=== PATIENT | female | born 1960 | race Caucasian/White ===

== ENCOUNTER 2022-12-29 12:53 | Outpatient (OUT) | payer OTHER, SELFPAY ==
--- NOTE | 2022-12-29 13:33 | CA_ITS ---
Patient: NIA GREEN Exam Date: 12/29/2022 : 1960 Gender:F Ordering : OXANA RUIZ [facility] Admission #: [id number] Family : DR Venus Daniels M.D. Order #: [id number] CLICK HERE TO VIEW EXAM ECHOCARDIOGRAM REPORT PROCEDURE: CA ECHO DOPPLER COMPLETE INDICATIONS: Diastolic dysfunction, palpitations, SVT, diabetes COMPARISON: None. DESCRIPTION: COMPLETE ECHOCARDIOGRAM Real-time transthoracic echocardiography with 2D, M-mode, spectral and color flow Doppler performed. QUALITY: Technical quality was good. LEFT VENTRICLE: Normal chamber size. Normal left ventricular wall thickness. Normal systolic function. LV EF: Normal left ventricular ejection fraction, (>55%). DIASTOLIC: Normal diastolic function. ATRIAL SEPTUM: LEFT ATRIUM: Normal chamber size. RIGHT ATRIUM: Normal chamber size. RIGHT VENTRICLE: Normal chamber size. Normal right ventricular systolic function. TRICUSPID VALVE: Normal mobility and thickness. No stenosis with trivial regurgitation. No evidence of pulmonary hypertension. RVSP 34 mmHg MITRAL VALVE: Normal mobility and thickness. No evidence of mitral valve stenosis. Mild mitral annular calcification. Trivial mitral regurgitation. AORTIC VALVE: Normal trileaflet appearance. No visible sclerosis. Normal leaflet mobility. No evidence of aortic valve stenosis. No aortic regurgitation. AORTIC ROOT: Normal diameter and appearance. PULMONIC VALVE: Normal thickness and mobility. No stenosis. No regurgitation. PERICARDIUM: No evidence of pericardial effusion. IVC: Not well visualized. PLEURA: CONCLUSION: 1. Normal ventricular function. LVEF is 55-60%. 2. No significant valvular dysfunction. 3. Normal right sided pressures. Adult Echocardiography Procedure Report Left Ventricle LVEDD (3.7 - 5.6 cm): 5.11 cm LVESD (2.2 - 4.0 cm): 3.61 cm LVIVS thickness (0.6 - 1.2 cm): 0.86 cm LVPW thickness (0.5 - 1.0 cm): 0.65 cm e': 0.09 m/s E - e': 6.66 LVOT Max Gradient: 1.69 mm[Hg] LVOT Area (cm2): 0.65 m/s Peak Velocity (LVOT): 0.65 m/s LVOT Diameter 2.26 cm Left Atrium LA Volume Index (2D A2C): 23.63 ml/m2 Left Atrium Systolic Dimension: 3.80 cm Mitral Valve MV E to A Ratio: 0.77 Mitral Valve A-Wave Peak Velocity: 0.75 m/s Mitral Valve E-Wave Peak Velocity: 0.58 m/s Right Ventricle Aorta AO Root Diam: 3.25 cm Ascending Ao Diam: 2.98 cm Aortic Valve AoV Area (Peak Gregorio): 2.61 cm2, 2.61 cm2 Peak Velocity(Antegrade Flow): 1.00 m/s Peak Gradient(Antegrade Flow): 4.01 mm[Hg] Tricuspid Valve Peak Velocity (Regurgitant Flow): 2.77 m/s Pulmonic Valve Mean Gradient: 2.16 mm[Hg], 2.19 mm[Hg], 2.31 mm[Hg] Mean Velocity: 0.71 m/s, 0.71 m/s, 0.73 m/s Peak Velocity: 0.98 m/s, 0.85 m/s Peak Gradient: 3.57 mm[Hg], 3.87 mm[Hg], 4.19 mm[Hg], 2.86 mm[Hg] Right Atrium Right Atrium Systolic Pressure: 24.95 ml, 24.95 ml Dictated by: Thiago Diaz M.D. on 12/29/2022 at 17:12 Approved by: Thiago Diaz M.D. on 12/29/2022 at 17:17
== END 2022-12-29 12:54 | disposition home or self-care (01) ==
LOC: CARD 12:53
PROVIDERS: PCP Family Medicine; Visit Provider Nurse Practitioner Family
DX: I47.1 Supraventricular tachycardia (principal)
CPT/HCPCS: 93306

== ENCOUNTER 2023-07-30 09:17 | Outpatient (OUT) | payer OTHER, SELFPAY ==
[2023-07-30 09:54] LABS: Basophils Absolute Auto 0.1 10^3/uL (0.0-0.1); Basophils Percent Auto 0.6 % (0.2-2.0); Eosinophils Absolute Auto 0.3 10^3/uL (0.0-0.7); Hematocrit 41.4 % (36.0-48.0); Hemoglobin 12.9 g/dL (12.0-16.0); Immature Granulocytes Abs Auto 0.03 10^3/uL (0.00-0.03); Immature Granulocytes Pct Auto 0.3 % (0.0-0.5); Lymphocytes Absolute Auto 3.2 10^3/uL (1.2-3.8); Lymphocytes Percent Auto 29.6 % (20.5-60.0); Mean Corpuscular HGB Conc 31.2 g/dL (29.9-35.2); Mean Corpuscular Hemoglobin 27.4 pg (26.7-34.0); Mean Corpuscular Volume 87.9 fL (81.0-99.0); Monocytes Absolute Auto 0.6 10^3/uL (0.3-0.8); Monocytes Percent Auto 5.9 % (1.7-12.0); Neutrophils Absolute Auto 6.5 10^3/uL (1.4-6.5); Neutrophils Percent Auto 60.6 % (43.0-75.0); Platelet Count 318 10^3/uL (150-450); Red Blood Count 4.71 10^6/uL (4.20-5.40); Red Cell Distribution Width 12.6 % (11.0-15.0); White Blood Count 10.7 10^3/uL (4.0-11.0)
[2023-07-30 09:56] LABS: Microalbumin Urine Random <1.3 mg/dL (<=30.0)
[2023-07-30 10:32] LABS: Alanine Aminotransferase 29 U/L (14-59); Albumin Globulin Ratio 0.8; Albumin Level 3.2 g/dL (3.4-5.0); Alkaline Phosphatase 84 U/L (46-116); Anion Gap 12.6; Aspartate Amino Transferase 15 U/L (15-37); BUN Creatinine Ratio 13.8; Bilirubin Total 0.4 mg/dL (0.2-1.0); Calcium 8.4 mg/dL (8.5-10.1); Carbon Dioxide 27.7 mmol/L (21.0-32.0); Chloride 104 mmol/L (98-107); Chol HDL Ratio 3.6; Cholesterol 218 mg/dL (<=200); Estimated GFR (African America >60 (>=60); Estimated GFR (Non-African Ame >60 (>=60); Free T3 2.03 pg/mL (2.18-3.98); Globulin 4.1 g/dL; Glucose 143 mg/dL (74-106); HDL Cholesterol 61 mg/dL (40-60); Potassium 4.3 mmol/L (3.5-5.1); Sodium 140 mmol/L (136-145); Thyroid Stimulating Hormone 0.248 uIU/mL (0.358-3.740); Total Protein 7.3 g/dL (6.4-8.2); Triglycerides 128 mg/dL (<=150); VLDL CHOLESTEROL 25.6 mg/dL
[2023-07-30 11:02] LABS: Estimated Average Glucose 151 mg/dL; Glycohemoglobin A1C 6.9 % (4.5-6.2)
[2023-07-30 11:19] LABS: Free T4 1.05 ng/dL (0.76-1.46)
[2023-08-01 17:10] LABS: Thyroglobulin Antibody <1.0 IU/mL (0.0-0.9); Thyroid Peroxidase (TPO) Ab <9 IU/mL (0-34)
== END 2023-07-30 09:18 | disposition home or self-care (01) ==
LOC: LAB 09:17
PROVIDERS: PCP Family Medicine; Visit Provider Family Medicine
DX: E03.9 Hypothyroidism, unspecified (principal); E11.65 Type 2 diabetes mellitus with hyperglycemia; R10.9 Unspecified abdominal pain
CPT/HCPCS: 36415; 80053; 80061; 82043; 83036; 84439; 84443; 84481; 85025; 86376; 86800

== ENCOUNTER 2024-03-02 11:21 | Outpatient (OUT) | payer OTHER, SELFPAY ==
--- OUTSIDE RECORDS SUMMARY | 2024-03-02 11:28 | XMS_ITS | CCD ---
Author Organization [facility] Care Team Providers Care Acute Specialist Name Role Phone VENUS CHEN Primary Care Physician [phone] VENUS CHEN Primary Care Unavailable MISC, DR CARMONA Attending Unavailable MISC, DR CARMONA Consulting Unavailable MISC, DR CARMONA Admitting Unavailable [facility] Attending Unavailable OXANA RUIZ Attending Unavailable VENUS CHEN Unavailable REFERRAL, SELF Referring Unavailable REFERRAL, SELF Attending Unavailable REFERRAL, SELF Admitting Unavailable VENUS CHEN Consulting Unavailable Brittany TALLEY Attending Unavailable Venus Chen Attending Unavailable Venus Chen Primary Care Unavailable Venus Chen Admitting Unavailable MD Venus Chen Primary Care Provider [phone] MD Venus Chen Attending Provider RUDDY SIMMONS Attending Unavailable VENUS CHEN Referring Unavailable VENUS CHEN Primary Care Unavailable VENUS CHEN Referring Unavailable VENUS CHEN Primary Care Unavailable JO-ANN CUELLAR Admitting Unavailable JO-ANN CUELLAR Attending Unavailable JO-ANN CUELLAR Referring Unavailable VENUS CHEN Primary Care Unavailable JO-ANN CUELLAR Attending Unavailable JO-ANN CUELLAR Referring Unavailable VENUS CHEN Primary Care Unavailable LIBBY TO Attending Unavailable VENUS CHEN Primary Care Unavailable Allergies Allergy Classification Reported Allergen(s) Allergy Type Date of Onset Reaction(s) Facility (2 sources) Amoxicillin; Translations: [amoxicillin] Drug Allergy Unknown cause [facility] (14 sources) Ciprofloxacin; Translations: [ciprofloxacin] Drug Allergy 04-11-20 Unknown cause, Unknown, Hives [facility] (2 sources) Gluten; Translations: [Glutens] Drug allergy Unknown cause [facility] (2 sources) Latex; Translations: [Latex] Drug allergy Unknown cause [facility] (8 sources) Penicillin; Translations: [penicillin] Drug Allergy Unknown cause, Unknown [facility] (2 sources) Milk Products; Translations: [Milk Products] Drug allergy Unknown cause [facility] (6 sources) Acetaminophen / Propoxyphene Drug Allergy Unknown [employer] [facility] [employer] Other (9 sources) Aspirin; Translations: [ASPIRIN] Drug Allergy 01-20-20 21 Unknown, [facility] (6 sources) Cephalexin Drug Allergy Unknown [facility] [employer] Other (9 sources) Codeine; Translations: [CODEINE] Drug Allergy 01-20-20 Unknown, [facility] (7 sources) levoFLOXacin; Translations: [Levaquin] Drug Allergy 06-06-19 14 Unknown [facility] (6 sources) NITROFURANTOIN, MACROCRYSTALS / Nitrofurantoin, Monohydrate Drug Allergy Unknown [facility] Other (6 sources) Sulfamethoxazole / Trimethoprim Drug Allergy Unknown [facility] Other (6 sources) Substance with sulfonamide structure and antibacterial mechanism of action (substance) Drug allergy Unknown [facility] [employer] Other (1 source) Acetaminophen / HYDROcodone Drug Allergy 06-13-19 14 [facility] (1 source) Acetaminophen / oxyCODONE Drug Allergy 06-13-19 14 [facility] (4 sources) Morphine; Translations: [MORPHINE] Drug Allergy 06-13-19 14 [facility] (5 sources) Penicillins; Translations: [PENICILLINS] Drug allergy (disorder) 04-18-20 07 Hives [facility] (1 source) thyroid (DETENTION) Drug Allergy 06-13-19 14 [facility] (1 source) Darvocet-N 100 Drug allergy (disorder) 06-13-19 14 [facility] (3 sources) natural latex rubber; Translations: [LATEX, NATURAL RUBBER] Propensity to adverse reactions to drug (disorder) 08-23-19 18 [facility] (1 source) Sulfamethoxazole / Trimethoprim; Translations: [SULFAMETHOXAZOLE-T RIMETHOPRIM] Drug Allergy 01-20-20 21 [facility] (3 sources) ADHESIVE TAPE-SILICONES; Translations: [ADHESIVE TAPE-SILICONES] Propensity to adverse reactions to drug (disorder) 08-23-19 18 [facility] (1 source) PROPOXYPHENE N-ACETAMINOPHEN; Translations: [PROPOXYPHENE N-ACETAMINOPHEN] Propensity to adverse reactions to drug (disorder) 09-07-19 23 [facility] (3 sources) aspirin contraindicated Propensity to adverse reactions 04-26-20 14 Comment:advers e rxn/side effects [facility] Other (3 sources) Darvocet A500 *ANALGESICS - OPIOID* Propensity to adverse reactions 04-11-20 13 Unknown [facility] Other (3 sources) Allergies Reconciled Propensity to adverse reactions Unknown [facility] Other (3 sources) Substance with penicillin structure and antibacterial mechanism of action (substance) Drug allergy 04-11-20 13 Unknown [facility] Other (3 sources) patient allergy list reviewed by nurse or physicia Propensity to adverse reactions 04-11-20 13 Comment:Done [facility] Other (3 sources) Keflex *CEPHALOSPORINS* Propensity to adverse reactions 04-11-20 13 Unknown [facility] Other (1 source) Acetaminophen Drug Allergy 07-18-19 24 [facility] (1 source) Cephalexin Drug Allergy 07-18-19 24 [facility] (1 source) Cephalosporins (Antibiotic) Allergy to substance 07-18-19 24 [facility] (1 source) levoFLOXacin Drug Allergy 07-18-19 24 [facility] (1 source) Nitrofurantoin Drug Allergy 07-18-19 24 [facility] (1 source) Propoxyphene Drug Allergy 07-18-19 24 [facility] (1 source) Sulfamethoxazole Drug Allergy 07-18-19 [facility] (3 sources) Sulfonamides (Antibiotic); Translations: [SULFA (SULFONAMIDE ANTIBIOTICS)] Allergy to substance 01-20-20 [facility] (1 source) Trimethoprim Drug Allergy 07-18-19 [facility] (1 source) Darfabriciocet A500 *ANALGESICS - OP Allergy to substance 07-18-19 [facility] (2 sources) NITROFURANTOIN MONOHYD/M-CRYST; Translations: [NITROFURANTOIN MONOHYD/M-CRYST] Propensity to adverse reactions to drug (disorder) 01-20-20 [facility] Medications Current Medications Medication Drug Class(es) Dates Sig (Normalized) Sig (Original) 3 ml insulin glargine 100 unt/ml pen injector (5 sources) Insulin Analog Start: 07-18-2023 Insulin Glargine (Basaglar Kwikpen U-100 Insulin) 100 unit/mL (3 mL) insulin pen Active UNIT SUBCUT As Directed July 18, 2023 1:00am FreeTextSig: as directed Subcutaneous; Note: Source Status: Taking; Provider: Tiburcio Nielson ( ) Basaglar KwikPen 100 UNIT/ML as directed Subcutaneous Active levothyroxine sodium 0.125 mg oral capsule (8 sources) l-Thyroxine Start: 07-18-2023 take 1 capsule by mouth once daily Levothyroxine (Tirosint) 125 mcg capsule Active 125 MCG PO Daily July 18, 2023 1:00am Start: 11-11-2017 take 1 capsule by [facility] once daily Tirosint 125 mcg (0.125 mg) oral capsule 125 microgram = 1 cap(s), Oral, Daily, On an empty stomach, Refills(s) 0, Thyroid Start Date: 11/11/17 Status: Ordered liothyronine sodium 0.005 mg oral tablet (8 sources) l-Triiodothyronine Start: 07-18-2023 take 1 tablet by mouth once daily Liothyronine (Cytomel) 5 mcg tablet Active 5 MCG PO Daily July 18, 2023 1:00am Start: 11-11-2017 take 2.5 ug by mouth once gene y Cytomel 2.5 mcg, Oral, Daily, Refills(s) 0, Thyroid Start Date: 11/11/17 Status: [facility]four [facility] Cytomel 5 MCG 1 tablet on an empty stomach Orally Once a day Active metFORMIN hydrochloride 1000 mg oral tablet (4 sources) Biguanide take 1 tablet by mouth every twelve hours metFORMIN HCl 1000 MG 1 tablet with a meal Orally twice a day Active Semaglutide (1 source) Start: inject 1 mg by subcutaneous injection every week Semaglutide (Ozempic) 1 mg/dose (4 mg/3 mL) pen injector Active 1 MG SUBCUT every week July 18, 2023 1:00am 24 hr venlafaxine 150 mg extended release oral capsule (8 sources) Serotonin and Norepinephrine Reuptake Inhibitor Start: take 1 capsule by mouth once daily Venlafaxine Active 150 MG PO Daily July 18, 2023 1:00am FreeTextSig: TAKE 1 CAPSULE BY MOUTH EVERY DAY; Note: Source Status: Taking; Refills: 1; Qty: 90 Capsule; Provider: April Wagner Start: 11-11-2017 take 150 mg by mouth once gene y venlafaxine 150 mg, Oral, Daily, Refills(s) 0, Depression Start Date: 11/11/17 Status: Ordered take 1 capsule by mo [facility] once daily Venlafaxine HCl ER 150 MG TAKE 1 CAPSULE BY MOUTH EVERY DAY for 90 Active vitamin B12 (1 source) Vitamin B12 Start: 11-11-2017 Vitamin B12 Or al, Daily, Refills(s) 0, Prophylaxis Start Date: 11/11/17 Status: Ordered Vitamin D3 (1 source) Start: 11-11-2017 Vitamin D3 5,0 00 [employer], Oral, Once a day (at bedtime), Refills(s) 0, Prophylaxis Start Date: 11/11/17 Status: Ordered zolpidem tartrate 5 mg oral tablet (8 sources) gamma-Aminobutyr ic Acid-ergic Agonist Start: 07-18-2023 take 1 tablet by mouth once daily at bedtime as needed Zolpidem Active 5 MG PO Daily at bedtime July 18, 2023 1:00am FreeTextSig: TAKE 1 TABLET BY MOUTH EVERY DAY AT BEDTIME NEEDED; Note: Source Status: Refill; Refills: 0; Qty: 90 Tablet; Provider: April Wagner Start: 04-11-2023 take 1 tablet by becky th once daily at bedtime as needed Zolpidem Tartrate 5 MG TAKE 1 TABLET BY MOUTH EVERY DAY AT BEDTIME NEEDED for 90 Mar, Active Start: 01-10-2023 take 1 tablet by becky th once daily at bedtime as needed Zolpidem Tartrate 5 MG TAKE 1 TABLET BY MOUTH EVERY DAY AT BEDTIME NEEDED for 90 Dec, Active Start: 07-15-2022 take 1 tablet by becky th once daily at bedtime as needed Zolpidem Tartrate 5 MG TAKE 1 TABLET BY MOUTH EVERY DAY AT BEDTIME NEEDED for 90 Jun, Active Start: 11-11-2017 take 5 mg by mouth o nce daily at bedtime as needed for sleep Ambien 5 mg, Oral, Once a day (at bedtime), PRN as needed for sleep, Refills(s) 0, Sleep Start Date: 11/11/17 Status: Ordered Problems Active Problems Problem Classification Problem Date Documented Da te Episodic/Chronic Abdominal pain (16 sources) Left lower quadrant pain; Translations: [Left lower quadrant pain] Onset: 3 07-18-2023 Episodic Anxiety disorders (9 sources) Mixed anxiety and depressive disorder; Translations: [Anxiety disorder, unspecified] Onset: 3 Chronic Cardiac dysrhythmias (4 sources) Supraventricular tachycardia; Translations: [Ventricular premature depolarization] Onset: 3 Chronic Cardiac dysrhythmias (12 sources) Intermittent palpitations; Translations: [Palpitations] Onset: 3 Episodic Diabetes mellitus with complications (13 sources) Hyperglycemia due to type 2 diabetes mellitus; Translations: [Type 2 diabetes mellitus with hyperglycemia] Onset: 4 Chronic Diabetes mellitus without complication (4 sources) Type 2 diabetes mellitus without complications; Translations: [Type 2 diabetes mellitus without complication] Onset: 8 Chronic Disorders of lipid metabolism (3 sources) Hyperlipidemia, unspecified; Translations: [Mixed hyperlipidemia] Onset: 2 Chronic Essential hypertension (10 sources) Essential hypertension; Translations: [Essential (primary) hypertension] Chronic Immunizations and screening for infectious disease (3 sources) Vaccination given; Translations: [Encounter for immunization] Episodic Mycoses (9 sources) Candidiasis; Translations: [Candidiasis, unspecified] Episodic Nonmalignant breast conditions (9 sources) Inflammatory disorder of breast; Translations: [Abscess of the breast and nipple] Episodic Other and ill-defined heart disease (2 sources) Other ill-defined heart diseases; Translations: [Other ill-defined heart diseases] Onset: 3 Chronic Other and unspecified benign neoplasm (2 sources) Personal history of colonic polyps; Translations: [Personal history of colonic polyps] Onset: 4 Episodic Other and unspecified benign neoplasm (1 source) Polyp of colon; Translations: [Polyp of colon] Onset: 4 Episodic Other circulatory disease (9 sources) Elevated blood-pressure reading without diagnosis of hypertension; Translations: [Elevated blood-pressure reading, without diagnosis of hypertension] Episodic Other connective tissue disease (6 sources) Fibromyalgia; Translations: [Fibromyalgia] Episodic Other connective tissue disease (1 source) Pain in left foot Episodic Other gastrointestinal disorders (6 sources) Irritable bowel syndrome; Translations: [Irritable bowel syndrome without diarrhea] Onset: 8 Chronic Other gastrointestinal disorders (6 sources) Small bowel bacterial overgrowth syndrome; Translations: [Other specified diseases of intestine] Episodic Other gastrointestinal disorders (1 source) Other specified diseases of intestine Episodic Other gastrointestinal disorders (3 sources) Disorder of intestine; Translations: [Other specified diseases of intestine] Episodic Other lower respiratory disease (2 sources) Orthopnea; Translations: [Orthopnea] Onset: 3 Episodic Other non-traumatic joint disorders (9 sources) Arthralgia of the lower leg; Translations: [Pain in right knee] Episodic Other nutritional; endocrine; and metabolic disorders (6 sources) Body mass index 40+ - severely obese; Translations: [Body Mass Index 45.0-49.9, adult] Onset: 7 Chronic Other screening for suspected conditions (not mental disorders or infectious disease) (7 sources) Encounter for screening, unspecified; Translations: [Screening] Onset: 4 Episodic Other skin disorders (9 sources) Disorder of skin and/or subcutaneous tissue; Translations: [Disorder of the skin and subcutaneous tissue, unspecified] Episodic Peripheral and visceral atherosclerosis (9 sources) Intermittent claudication; Translations: [Peripheral vascular disease, unspecified] Chronic Residual codes; unclassified (9 sources) Insomnia; Translations: [Insomnia, unspecified] Onset: 3 Episodic Skin and subcutaneous tissue infections (20 sources) Cellulitis of right foot; Translations: [Cellulitis of right lower limb] Onset: 4 Episodic Thyroid disorders (13 sources) Hypothyroidism; Translations: [Hypothyroidism, unspecified] Onset: 3 Chronic Unclassified (2 sources) Esophagitis, unspecified without bleeding; Translations: [Esophagitis, unspecified without bleeding] Onset: 4 Unclassified (1 source) history of colon polyps Onset: 4 Past or Other Problems Problem Classification Problem Date Documented Da te Episodic/Chronic Acute bronchitis (3 sources) Acute bronchitis; Translations: [Acute bronchitis, unspecified] Onset: 05-19-2017 Episodic Allergic reactions (3 sources) Contact dermatitis; Translations: [Unspecified contact dermatitis, unspecified cause] Onset: 04-04-2018 Episodic Cancer of thyroid (4 sources) Personal history of malignant neoplasm of thyroid; Translations: [PERSONAL HX MALIG NEOPLASM THYROID] Onset: 12-19-2021 Episodic Esophageal disorders (1 source) Esophagitis; Translations: [Esophagitis, unspecified without bleeding] Onset: 04-26-2014 Episodic Genitourinary symptoms and ill-defined conditions (3 sources) Dysuria; Translations: [Dysuria] Onset: 11-27-2013 Episodic Influenza (3 sources) Upper respiratory tract infection due to Influenza; Translations: [Influenza due to unidentified influenza virus with other respiratory manifestations] Onset: 05-19-2017 Episodic Malaise and fatigue (3 sources) Malaise and fatigue; Translations: [Other malaise and fatigue] Onset: 09-28-2013 Episodic Other and unspecified benign neoplasm (3 sources) Benign neoplasm of stomach; Translations: [Polyp of stomach and duodenum] Onset: 06-06-2018 Episodic Other bone disease and musculoskeletal deformities (3 sources) Tietze's disease; Translations: [Chondrocostal junction syndrome [Tietze]] Onset: 07-30-2013 Episodic Other ear and sense organ disorders (3 sources) Otalgia; Translations: [Otalgia, unspecified ear] Onset: 09-04-2013 Episodic Other gastrointestinal disorders (3 sources) Diarrhea; Translations: [Diarrhea] Onset: 09-27-2018 Episodic Other skin disorders (3 sources) Mass of thoracic structure; Translations: [Swelling, mass, or lump in chest] Onset: 11-27-2018 Episodic Other skin disorders (3 sources) Actinic keratosis; Translations: [Actinic keratosis] Onset: 04-11-2013 Episodic Residual codes; unclassified (3 sources) Edema, unspecified; Translations: [Edema] Onset: 01-04-2017 Episodic Results Test Name Value Interpretation Reference Range Facility CT abdomen pelvis w conon CT abdomen pelvis w con [facility] [place] [address] [place] [address] CT Scan Report Signed Patient: Nia Calhoun MR#: [id number] : 1960 Acct:[id number] Age/Sex: 63 / F ADM Date: 08/03/23 Loc: CT Room: Type: [facility] Attending Dr: Venus Chen MD Copies to: Venus Chen MD Ordering Provider: Venus Chen MD Date of Service: 08/03/23 CT/CT abdomen pelvis w con: E11.65 - Type [address] ABDOMEN AND PELVIS WITH INTRAVENOUS CONTRAST: CLINICAL HISTORY: Abdominal pain and constipation low back pain. COMPARISON: None TECHNIQUE: Spiral images were obtained through the abdomen and pelvis following the administration of intravenous contrast. This CT exam was performed using one or more following dose reduction techniques: Automated exposure control, adjustment of the mA and/or kV according to patient size, or use of iterative reconstruction technique. FINDINGS: Lung Bases: [No acute findings.] Organs:Hepatic steatosis. Gallbladder has been removed. Portal vein pancreas spleen and adrenal glands appear unremarkable. No enhancing renal mass or hydronephrosis. Presumed parapelvic cyst left kidney. Abdominal aorta appears normal in caliber.[ GI: Stomach is grossly unremarkable. Small bowel appears nondilated. No acute colonic abnormality.[ Pelvis:[Urinary bladder is grossly unremarkable.] Uterus has been removed. No adnexal mass. Peritoneum/Retroperitoneum :No free air, free fluid or lymphadenopathy. Abd wall/Bones:Abdominal wall demonstrates no acute findings. Osseous structures demonstrate degenerative change.[ CT/CT abdomen pelvis w con IMPRESSION: No acute findings. Impression dictated by: Luis A Feliciano Jr., DBrandon08/03/2023 4:01 PM Dictation Location: [place] [address] Transcribed By: CHINO 08/03/23 1601 Dictated By: Luis A Feliciano Jr, DO 08/03/23 1558 Signed By: 08/03/23 1601 Normal [facility] Basophils Auto (Bld) [#/Vol] on 07-30-2023 Basophils (Bld) [#/Vol] 0.1 10 3/uL 0.0-0.1 [facility] Basophils/100 WBC Auto (Bld) on 07-30-2023 Basophils/100 WBC (Bld) 0.6 % 0.2-2.0 [facility] Cholesterol in LDL Calc [Mas s/Vol]on 07-30-2023 Cholesterol in LDL [Mass/Vol] 132.0 mg/dL [facility] Comment on above: <100 mg/dl [id number] 0-129 mg/dl NEAR OR ABOVE [id number] mg/dl BORDERLINE [id number] mg/dl HIGH>190 mg/dl VERY HIGH Cholesterol in VLDL Calc [Ma ss/Vol]on 07-30-2023 Cholesterol in VLDL [Mass/Vol] 25.6 mg/dL [facility] Eosinophils/100 WBC Auto (Bl d)on 07-30-2023 Eosinophils/100 WBC (Bld) 3.0 % 0.9-7.0 [facility] Erythrocyte distribution wid th Auto (RBC) [Ratio]on 07-30-2023 Erythrocyte distribution width (RBC) [Ratio] 12.6 % 11.0-15.0 [facility] Estimated glomerular filtrat ion rate (GFR) non- Americanon 07-30-2023 GFR/1.73 sq M.predicted among non-blacks MDRD (S/P/Bld) [Vol rate/Area] mL/min/{1.73_m2} >=60 [facility] Globulin Calc (S) [Mass/Vol] on 07-30-2023 Globulin (S) [Mass/Vol] 4.1 g/dL [facility] Glucose mean value [Mass/vol ume] in Blood Estimated from glycated hemoglobinon 07-30-2023 Average glucose Estimated from glycated hemoglobin (Bld) [Mass/Vol] 151 mg/dL [facility] Hematocrit Auto (Bld) [Volum e fraction]on 07-30-2023 Hematocrit (Bld) [Volume fraction] 41.4 % 36.0-48.0 [facility] Hemoglobin [Mass/volume] in Bloodon 07-30-2023 Hemoglobin (Bld) [Mass/Vol] 12.9 g/dL 12.0-16.0 [facility] Laboratory - Chemistry and C hemistry - challengeon 07-30-2023 Albumin [Mass/Vol] 3.2 g/dL 3.4-5.0 [facility] ALP [Catalytic activity/Vol] 84 U/L 46-116 [facility] ALT [Catalytic activity/Vol] 29 U/L 14-59 [facility] AST [Catalytic activity/Vol] 15 U/L 15-37 [facility] Bilirubin [Mass/Vol] 0.4 mg/dL 0.2-1.0 [facility] Calcium [Mass/Vol] 8.4 mg/dL 8.5-10.1 [facility] Chloride [Moles/Vol] 104 mmol/L 98-107 [facility] Cholesterol [Mass/Vol] 218 mg/dL <=200 [facility] Cholesterol in HDL [Mass/Vol] 61 mg/dL 40-60 [facility] Comment on above: > or =60 mg/dl - LOW CARDIOVASCULAR RISK<40 mg/dl - HIGH CARDIOVASCULAR RISK CO2 [Moles/Vol] 27.7 mmol/L 21.0-32.0 [facility] Creatinine [Mass/Vol] 0.87 mg/dL 0.55-1.02 [facility] Free T4 [Mass/Vol] 1.05 ng/dL 0.76-1.46 [facility] GFR/1.73 sq M.predicted MDRD (S/P/Bld) [Vol rate/Area] mL/min/{1.73_m2} >=60 [facility] Glucose [Mass/Vol] 143 mg/dL 74-106 [facility] Potassium [Moles/Vol] 4.3 mmol/L 3.5-5.1 [facility] Protein [Mass/Vol] 7.3 g/dL 6.4-8.2 [facility] Sodium [Moles/Vol] 140 mmol/L 136-145 [facility] Triglyceride [Mass/Vol] 128 mg/dL <=150 [facility] TSH Qn 0.248 m[IU]/L 0.358-3.740 [facility] Urea nitrogen [Mass/Vol] 12.0 mg/dL 7.0-18.0 [facility] Urea nitrogen/Creatinine [Mass ratio] 13.8 mg/mg [facility] Laboratory - Hematology and Cell countson 07-30-2023 HbA1c (Bld) [Mass fraction] 6.9 % 4.5-6.2 [facility] Comment on above: ADA RECOMMENDED LIMI T 4.0 - 6.0ADA THERAPEUTIC TARGET < 7.0ACTION SUGGESTED> 7.0 Immature granulocytes/100 WBC (Bld) 0.3 % 0.0-0.5 [facility] Leukocytes [#/volume] correc cedrick for nucleated erythrocytes in Blood by Automated counon 07-30-2023 WBC corrected for nucl RBC Auto (Bld) [#/Vol] 10.7 10 3/uL 4.0-11.0 [facility] Lymphocytes Auto (Bld) [#/Vo l]on 07-30-2023 Lymphocytes (Bld) [#/Vol] 3.2 10 3/uL 1.2-3.8 [facility] Lymphocytes/100 WBC Auto (Bl d)on 07-30-2023 Lymphocytes/100 WBC (Bld) 29.6 % 20.5-60.0 [facility] MCH Auto (RBC) [Entitic mass ]on 07-30-2023 MCH (RBC) [Entitic mass] 27.4 pg 26.7-34.0 [facility] MCHC Auto (RBC) [Mass/Vol]on 07-30-2023 MCHC (RBC) [Mass/Vol] 31.2 g/dL 29.9-35.2 [facility] MCV Auto (RBC) [Entitic vol] on 07-30-2023 MCV (RBC) [Entitic vol] 87.9 fL 81.0-99.0 [facility] Microalbumin [Mass/volume] i n Urineon 07-30-2023 Albumin DL <= 20 mg/L (U) [Mass/Vol] mg/dL <=30.0 [facility] Monocytes Auto (Bld) [#/Vol] on 07-30-2023 Monocytes (Bld) [#/Vol] 0.6 10 3/uL 0.3-0.8 [facility] Monocytes/100 WBC Auto (Bld) on 07-30-2023 Monocytes/100 WBC (Bld) 5.9 % 1.7-12.0 [facility] Neutrophils Auto (Bld) [#/Vo l]on 07-30-2023 Neutrophils (Bld) [#/Vol] 6.5 10 3/uL 1.4-6.5 [facility] Neutrophils/100 WBC Auto (Bl d)on 07-30-2023 Neutrophils/100 WBC (Bld) 60.6 % 43.0-75.0 [facility] No Panel Informationon 07-29 Eosinophils # (Auto) 0.3 10 3/uL 0.0-0.7 [facility] Free Triiodothyronine 2.03 pg/mL 2.18-3.98 [facility] Immature Granulocyte # (Auto) 0.03 10 3/uL 0.00-0.03 [facility] Platelet mean volume Auto (B ld) [Entitic vol]on 07-30-2023 Platelet mean volume (Bld) [Entitic vol] 9.0 fL 9.5-13.5 [facility] Platelets Auto (Bld) [#/Vol] on 07-30-2023 Platelets (Bld) [#/Vol] 318 10 3/uL 150-450 [facility] RBC Auto (Bld) [#/Vol]on RBC (Bld) [#/Vol] 4.71 10 6/uL 4.20-5.40 [facility] Serum or plasma albumin/glob ulin mass ratioon 07-30-2023 Albumin/Globulin [Mass ratio] 0.8 {ratio} [facility] Serum or plasma anion gap de terminationon 07-30-2023 Anion gap [Moles/Vol] 12.6 mmol/L [facility] Serum or plasma thyroperoxid ase antibody assay (units/volume)on 07-30-2023 TPO Ab Qn [IU]/mL 0-34 [facility] Serum or plasma total choles terol/high density lipoprotein (HDL) cholesterol mass [place] 07-30-2023 Cholesterol.total/C holesterol in HDL [Mass ratio] 3.6 {ratio} [facility] Comment on above: 3.3 - 4.4 LOW RISK4. 4 - 7.1 AVERAGE RISK7.1 - 11.0 MODERATE RISK>11.0 HIGH RISK Thyroglobulin [Mass/volume] in Serum or Plasmaon 07-30-2023 Thyroglobulin [Mass/Vol] <1.0 [IU]/mL 0.0-0.9 [facility] Comment on above: Thyroglobulin Antibo dy measured by [employer] MarketMethodologyIt should be noted that the presence of thyroglobulinantibodies may not be pathogenic nor diagnostic, especiallyat very low levels. The assay whiskey regauger has found thatfour percent of individuals without evidence of thyroiddisease or autoimmunity will have positive TgAb levels upto 4 IU/mL.Performed at: [address] [id number] Director: Chris Galicia PhD, Phone: [phone] [place] Mamm Screen w/CAD if perf and 3D Bilon 04-15-2023 MA Mamm Screen w/CAD if perf and 3D Blake Exam Date/Time: 04/13/2023 16:30 EST Reason for Exam: Z12.31 Report IMPRESSION: BIRADS 1 NEGATIVE, NORMAL INTERVAL FOLLOW-UP.12 MONTH RECALL. CLINICAL HISTORY: Z12.31. COMPARISON: 03/10/2022. COMMENT: Routine views and tomosynthesis views of both breasts were obtained. The breasts are almost entirely fatty. No dominant breast mass nor neoplastic calcifications are noted. There has been no significant change from the previous exam. The examination was reviewed with Computer Aided Detection. Breast Density: No Mammography is very important to your health. The current [employer] and National Comprehensive Cancer Network guidelines recommends annual mammography beginning at age 40. This facility utilizes a reminder system to ensure all patients receive reminder notifications at the appropriate time based on the recommendations of this exam. Board Certified Radiologists. Accredited by the ACR and FDA. Ordering Provider: REFERRAL, SELF FINAL REPORT Dictated: 04/15/2023 3:27 pm Reagan Yadav M.D. Signed (Electronic Signature): 04/15/2023 3:27 pm Signed by: Reagan Yadav M.D. Transcribed by: NEIL Technologist: TAIWO Assessment: BI-RADS Category 1-Negative Recommendation: Normal interval follow-up Normal [facility] Consent for Treatmenton 03-24 Consent for Treatment [id number] Normal [facility] Office Visiton 11-22-2022 Follow-up visit [id number] Nia Calhoun 1960 F Date Provider Department Center 11/22/2022 [id number], KATEYAB CARD [facility] Family History Problem Relation Age of Onset Coronary artery disease Father Arrhythmia Father Heart attack Father Coronary artery disease Sister Arrhythmia Brother Family Status - Relation Status Age at Father Sister Brother Level of Service:11779 CO OFFICE/OUTPATIENT ESTABLISHED MOD MDM 30-39 MIN Normal [facility] Consent for Procedure/Surger yon 11-15-2022 Consent for Procedure/Surgery [id number] Normal [facility] Gastroenterology Office/Clin ic Noteon 11-15-2022 Gastroenterology Office/Clinic Note Chief Complaint 5 year colon recall HPI Staff This is a 62 year old female who presents today for a 5 year recall, with complaints of rectal pain and generalized abdominal pain. History of Present Illness Nia Calhoun is a 62-year-old white female who presents today for a 5-year recall. Her last colonoscopy was done by me in 2018 and a small tubular adenoma was found at that time. We recommended to repeat her colonoscopy 5 years later. She denies a family history of colon cancer. She denies hematochezia or melena. She denies a history of stroke or heart attacks. The patient reports mild rectal pain. Review of Systems PHQ Score Initial Depression Screen Score: 0 Constitutional: No fever, no chills, no sweats, no weakness Skin: No Jaundice, no rash, no lesions, no petechiae ENMT: no ear pain, no sore throat, no congestion, no hoarseness Respiratory: no shortness of breath, no cough, no orthopnea, no wheezing Cardiovascular: no chest pain, no palpitations, no edema Gastrointestinal: no nausea, no vomiting, no diarrhea, no constipation, no GI bleeding, no abdominal pain, no dysphagia, no bloating, no heartburn Genitourinary: No dysuria, no hematuria, no discharge, no pain Musculoskeletal: no back pain, no trauma Neurologic: no numbness, no sleeping problems Additional ROS info: Except as noted in the above Review of Systems and in the History of Present Illness all other systems have been reviewed and are negative or noncontributory. Physical Exam Vitals & Measurements HR: 87(Peripheral) RR: 16 BP: 134/86 HT: 64 in HT: 163 cm WT: 113.9 kg WT: 250.58 lb BMI: 42.87 Constitutional: Appearance: well developed Skin: Inspection: no rashes, ulcers, icterus, or telangiectasias. Eyes: Conjunctivae/lids: normal conjunctivae and lids. ENMT: Hearing: within normal limits. Lips/Teeth/Gums: normal oral mucosa Neck: Neck: normal motion, central trachea Respiratory: Percussion: thorax normoresonant. Auscultation: normal breath sounds; no rubs, wheezes, rale or rhonchi. Cardiovascular: Auscultation: normal rhythm, S1 and S2; no rubs, murmurs, or gallop. Peripheral: no edema Gastrointestinal/Abdomen: Abdomen: normal consistency and bowel sounds; no tenderness or masses. Liver/Spleen: normal size and consistency, not palpable. Rectal: deferred Musculoskeletal: Gait/Station: normal gait Assessment/Plan 1. Personal history of colonic polyps (Z86.010: Personal history of colonic polyps) The patient is due for a surveillance colonoscopy. She has no family history of colon cancer. We will proceed with a colonoscopy. She also reported mild anal discomfort and pain. We will do a rectal exam while she is sedated during the upcoming colonoscopy. 2. BMI 40.0-44.9, adult (Z68.41: Body mass index [BMI] 40.0-44.9, adult) Portions of this record may have been created with voice recognition artificial intelligence software, specifically Indicee, InforcePro and or SnackFeed. Substitutions may have occurred due to the inherent limitations of voice recognition and artificial intelligence software. ATTESTATION: Documentation services were performed after patient or guardian consented to allow [employer] to record this visit. MOLINA community integration specialist and provider reviewed before signing. MOLINA: Lisandro Miles Follow-up No qualifying data available Problem List/Past Medical History Ongoing No qualifying data Historical No qualifying data Medications Ambien, 5 mg, Oral, Once a day (at bedtime), PRN Basaglar KwikPen Cytomel, 2.5 mcg, Oral, Daily Ozempic Tirosint 125 mcg (0.125 mg) oral capsule, 125 mcg= 1 cap(s), Oral, Daily venlafaxine, 150 mg, Oral, Daily Vitamin B12, Oral, Daily Vitamin D3, 5000 International_Unit, Oral, Once a day (at bedtime) Allergies Glutens (Unknown cause) Latex (Unknown cause) Milk Products (Unknown cause) amoxicillin (Unknown cause) ciprofloxacin (Unknown cause) penicillin (Unknown cause) Social History Tobacco Never (less than 100 in lifetime) Tobacco Use:. Never Smokeless Tobacco Use:., 11/11/2022 Immunizations Vaccine Date Status influenza virus vaccine, inactivated 01/27/2022 Recorded SARS-CoV-2 (COVID-19) mRNA BNT-162b2 vax 04/26/2021 Recorded SARS-CoV-2 (COVID-19) mRNA BNT-162b2 vax 09/03/2020 Recorded SARS-CoV-2 (COVID-19) mRNA BNT-162b2 vax 08/19/2020 Recorded SARS-CoV-2 (COVID-19) mRNA BNT-162b2 vax 08/11/2020 Recorded SARS-CoV-2 (COVID-19) mRNA BNT-162b2 vax 07/29/2020 Recorded influenza virus vaccine, inactivated 03/01/2018 Recorded influenza virus vaccine, inactivated 03/17/2017 Recorded diphtheria/pertussis, acel/tetanus adult 11/20/2012 Recorded Normal [place] Comment on above: Result Comment: Elec tronically Signed By: Lisandro Miles\.br\Date and Time Signed: 11/11/22 21:16 EDT\.br\Electronically Co-Signed By: GERRI GONZALEZ, Brittany\.br\Date and Time Co-Signed: 11/15/22 09:51 EDT Ambulatory Visit Summaryon 0 11-11-2022 Ambulatory Visit Summary NIA CALHOUN :1960 Visit Date:11/11/2022 Ambulatory Visit Instructions Your Diagnosis Personal history of colonic polyps BMI 40.0-44.9, adult Your Care Team Attending Physician - GERRI GONZALEZ, Brittany Primary Care Physician - APRIL GONZALEZ, VENUS This Is Your Medications List Contact prescribing physician if questions or concerns cholecalciferol (Vitamin D3) cyanocobalamin (Vitamin B12) insulin glargine (Basaglar KwikPen) levothyroxine (Tirosint 125 mcg (0.125 mg) oral capsule) liothyronine (Cytomel) semaglutide (Ozempic) venlafaxine zolpidem (Ambien) Discharge Vitals Heart Rate (Peripheral) 87 Respiratory Rate 16 Blood Pressure 134/86 Height 163 cm Height 64 in Weight 113.9 kg Weight 250.58 lb BMI 42.87 Medications What How Much When Instructions Unchanged cholecalciferol (Vitamin D3) 5,000 International unit By Mouth Once a day (at bedtime) Contact prescribing physician if questions or concerns Unchanged cyanocobalamin (Vitamin B12) By Mouth Every day Contact prescribing physician if questions or concerns Unchanged insulin glargine (Basaglar KwikPen) Contact prescribing physician if questions or concerns Unchanged levothyroxine (Tirosint 125 mcg (0.125 mg) oral capsule) 1 Capsules By Mouth Every day On an empty stomach Contact prescribing physician if questions or concerns Unchanged liothyronine (Cytomel) 2.5 mcg By Mouth Every day Contact prescribing physician if questions or concerns Unchanged semaglutide (Ozempic) Contact prescribing physician if questions or concerns Unchanged venlafaxine 150 Milligram By Mouth Every day Contact prescribing physician if questions or concerns Unchanged zolpidem (Ambien) 5 Milligram By Mouth Once a day (at bedtime) as needed for as needed for sleep Contact prescribing physician if questions or concerns Allergies Glutens (Unknown cause) Latex (Unknown cause) Milk Products (Unknown cause) amoxicillin (Unknown cause) ciprofloxacin (Unknown cause) penicillin (Unknown cause) Normal [place] [facility] Follow-Upon 09-06-2022 Follow-Up [id number] LjNia Daniel 1960 F Date Provider Department Center 09/06/2022 OXANA GRESHAM Replaced by [facility] Family History Problem Relation Age of Onset Coronary artery disease Father Arrhythmia Father Heart attack Father Coronary artery disease Sister Arrhythmia Brother Family Status - Relation Status Age at Father Sister Brother Level of Service:63657 CO OFFICE/OUTPATIENT ESTABLISHED MOD MDM 30-39 MIN Reason for Visit and Comments: Palpitations [607267] Normal [facility] GLYCOHEMOGLOBIN A1Con 2021 ADA RECOMMENDATION SEE BELOW Normal [facility] Comment on above: Result Comment: ADA RECOMMENDED LIMIT 4.0 - 6.0 ADA THERAPEUTIC TARGET < 7.0 ACTION SUGGESTED > 7.0 Performed By: #### A 1C #### [facility] [address] [address] [address] Deborah Gustafson Glucose [Mass/Vol] 154 mg/dL Normal [facility] Comment on above: Performed By: #### A 1C #### [facility] [address] [address] [address] Deborah Gustafson HbA1c (Bld) [Mass fraction] 7.0 % Critically high 4.5-6.2 [facility] Comment on above: Performed By: #### A 1C #### [facility] [address] [address] [address] Deborah Gustafson LIPID PROFILEon 12-19-2021 CHOL-HDL RATIO NORM SEE BELOW Normal [facility] Comment on above: Result Comment: 3.3 - 4.4 LOW RISK 4.4 - 7.1 AVERAGE RISK 7.1 - 11.0 MODERATE RISK >11.0 HIGH RISK Performed By: #### T SH, CMP, LIPID #### [facility] [address] [address] [address] Deborah Gustafson Cholesterol [Mass/Vol] 221 mg/dL Critically high <=200 [facility] Comment on above: Performed By: #### T SH, CMP, LIPID #### [facility] [address] [address] [address] Deborah Gustafson Cholesterol in HDL [Mass/Vol] 63 mg/dL Critically high 40-60 [facility] Comment on above: Performed By: #### T SH, CMP, LIPID #### [facility] [address] [address] [address] Deborah Gustafson Cholesterol in LDL [Mass/Vol] 137.6 mg/dL Normal [facility] Comment on above: Performed By: #### T SH, CMP, LIPID #### [facility] [address] [address] [address] Deborah Gustafson Cholesterol.total/C holesterol in HDL [Mass ratio] 3.5 {ratio} Normal [facility] Comment on above: Performed By: #### T SH, CMP, LIPID #### [facility] [address] [place] [address] Dr. Deborah Gustafson HDL NORMAL > or = 60 mg/dl - LO W CARDIOVASCULAR RISK <40 mg/dl - HIGH CARDIOVASCULAR RISK Normal [facility] Comment on above: Performed By: #### T SH, CMP, LIPID #### [facility] [address] [place] [address] Dr. Deborah Gustafson LDL CALC NORMAL SEE BELOW Normal [facility] Comment on above: Result Comment: <100 mg/dl OPTIMAL 100 - 129 mg/dl NEAR OR ABOVE OPTIMAL 130 - 159 mg/dl BORDERLINE HIGH 160 - 189 mg/dl HIGH >190 mg/dl VERY HIGH Performed By: #### T SH, CMP, LIPID #### [facility] [address] [address] [address] Deborah Gustafson Triglyceride [Mass/Vol] 102 mg/dL Normal <=150 [facility] Comment on above: Performed By: #### T SH, CMP, LIPID #### [facility] [address] [place] [address] Dr. Deborah Gustafson VLDL CALC 20.4 mg/dL Normal [facility] Comment on above: Performed By: #### T SH, CMP, LIPID #### [facility] [address] [address] [address] Deborah Gustafson PROF 14(COMP METB)on 022 Albumin [Mass/Vol] 3.5 g/dL Normal 3.4-5.0 [facility] Comment on above: Performed By: #### T LEYDA, CMP, LIPID #### [facility] [address] [address] [address] Deborah Gustafson Albumin/Globulin [Mass ratio] 1.0 {ratio} Normal [facility] Comment on above: Performed By: #### T LEYDA, CMP, LIPID #### [facility] [address] [address] [address] Deborah Gustafson ALP [Catalytic activity/Vol] 83 U/L Normal 46-116 [facility] Comment on above: Performed By: #### T LEYDA CMP, LIPID #### [facility] [address] [address] [address] Deborah Gustafson ALT [Catalytic activity/Vol] 32 U/L Normal 14-59 [facility] Comment on above: Performed By: #### T LEYDA CMP, LIPID #### [facility] [address] [address] [address] Deborah Gustafson Anion gap [Moles/Vol] 9.9 mmol/L Normal [facility] Comment on above: Performed By: #### T LEYDA CMP, LIPID #### [facility] [address] [place] [address] Dr. Deborah Gustafson AST [Catalytic activity/Vol] 15 U/L Normal 15-37 [facility] Comment on above: Performed By: #### T LEYDA, CMP, LIPID #### [facility] [address] [address] [address] Deborah Gustafson Bilirubin [Mass/Vol] 0.4 mg/dL Normal 0.2-1.0 [facility] Comment on above: Performed By: #### T LEYDA, CMP, LIPID #### [facility] [address] [address] [address] Deborah Gustafson Calcium [Mass/Vol] 8.8 mg/dL Normal 8.5-10.1 [facility] Comment on above: Performed By: #### T LEYDA, CMP, LIPID #### [facility] [address] [address] [address] Deborah Gustafson Chloride [Moles/Vol] 104 mmol/L Normal 98-107 [facility] Comment on above: Performed By: #### T SH, CMP, LIPID #### [facility] [address] [place] [address] Dr. Deborah Gustafson CO2 [Moles/Vol] 31.3 mmol/L Normal 21.0-32.0 [facility] Comment on above: Performed By: #### T SH, CMP, LIPID #### [facility] [address] [place] [address] Dr. Deborah Gustafson Creatinine [Mass/Vol] 0.86 mg/dL Normal 0.55-1.02 [facility] Comment on above: Performed By: #### T LEYDA, CMP, LIPID #### [facility] [address] [place] [address] Dr. Deborah Gustafson EGFR-AF MONTENEGRIN >60 Normal >=60 [facility] Comment on above: Performed By: #### T SH, CMP, LIPID #### [facility] [address] [place] [address] Dr. Deborah Gustafson EGFR-NON AF MONTENEGRIN >60 Normal >=60 [facility] Comment on above: Performed By: #### T LEYDA, CMP, LIPID #### [facility] [address] [place] [address] Dr. Deborah Gustafson Globulin (S) [Mass/Vol] 3.5 g/dL Normal [facility] Comment on above: Performed By: #### T LEYDA, CMP, LIPID #### [facility] [address] [place] [address] Dr. Deborah Gustafson Glucose [Mass/Vol] 124 mg/dL Critically high 74-106 [facility] Comment on above: Performed By: #### T SH, CMP, LIPID #### [facility] [address] [place] [address] Dr. Deborah Gustafson Potassium [Moles/Vol] 4.2 mmol/L Normal 3.5-5.1 [facility] Comment on above: Performed By: #### T SH, CMP, LIPID #### [facility] [address] [place] [address] Dr. Deborah Gustafson Protein [Mass/Vol] 7.0 g/dL Normal 6.4-8.2 [facility] Comment on above: Performed By: #### T SH, CMP, LIPID #### [facility] [address] [place] [address] Dr. Deborah Gustafson Sodium [Moles/Vol] 141 mmol/L Normal 136-145 [facility] Comment on above: Performed By: #### T SH, CMP, LIPID #### [facility] [address] [place] [address] Dr. Deborah Gustafson Urea nitrogen [Mass/Vol] 10.0 mg/dL Normal 7.0-18.0 [facility] Comment on above: Performed By: #### T SH, CMP, LIPID #### [facility] [address] [place] [address] Dr. Deborah Gustafson Urea nitrogen/Creatinine [Mass ratio] 11.6 mg/mg Normal [facility] Comment on above: Performed By: #### T SH, CMP, LIPID #### [facility] [address] [place] [address] Dr. Deborah Gustafson TSHon 12-19-2021 TSH 0.428 uIU/mL Normal 0.358-3.740 [facility] Comment on above: Performed By: #### T SH, CMP, LIPID #### [facility] [address] [place] [address] Dr. Deborah Nunez 01-20-2021 CNOVSP Visit (SP) Office ([facility]) -- NIA CALHOUN ([id number]) 1960 F Date Time Provider Department 01/20/21 11:15 AM WALLACE LAUREANO During your visit today, we recorded the following information about you: Temperature Pulse Respiration Blood pressure 97.9 degrees 93/minute 18/minute 148/83 Weight Height 119.9 kg 1.675 m Wallace Laureano MD 01/22/2021 12:43 PM Signed PATIENT NAME: Nia Calhoun DATE: 01/20/2021 PRIMARY CARE PHYSICIAN: Venus Chen MD OTHER PHYSICIANS: Dr. Henry ([facility] [place]) HPI: This is a 60 year old female self-referred for evaluation of abnormal labs (homozygous MTHFR mutation) detected on previous genetic analysis. Apparently the patient underwent genetic testing with [employer] in 2012, and was found to have multiple heterozygous mutations of no clinical significance. However, she subsequently underwent additional testing with [employer] and was found to have a homozygous MTHFR [id number] mutation. The patient has never had evidence of thromboembolic disease, although her son was diagnosed with a DVT at the age of 36. Apparently her son has a similar MTHFR mutation. Apparently the patient's second daughter was born with occult spinal bifida, and she has questions whether or not her MTHFR mutation correlates with her daughter's defect. The patient apparently has been diagnosed with mild B12 deficiency in the past, and currently takes sublingual B12 supplements as well as multiple vitamins. The patient has a remote history of thyroid cancer for which she underwent a thyroidectomy, otherwise she is very healthy. However, she was recently diagnosed with diabetes, and treatment with Metformin was recommended. The patient now comes in with questions concerning any risks of taking Metformin given her MTHFR mutation. The patient is aware that patients with MTHFR mutations can have an abnormal B12 metabolism, and has concerns given the fact that Metformin can also lead to B12 deficiency. Clinically the patient feels well. At this time she has no particular complaints. Review of systems is essentially negative. MEDICATIONS: Current Outpatient Medications Medication Sig - Levothyroxine (TIROSINT) 112 mcg cap Take 112 mcg by mouth once daily. - liothyronine (CYTOMEL) 5 mcg tablet Take 1 tablet by mouth twice daily. - venlafaxine XR (EFFEXOR XR) 75 mg 24 hr capsule Take 1 capsule by mouth once daily. - Cholecalciferol, Vitamin D3, (VITAMIN D) 1,000 unit cap Take 4 capsules by mouth once daily. - multivitamin tablet Take 1 tablet by mouth once daily. - COMPOUNDED PRESCRIPTION Vitamin D 5,000 IU, Take one(1) tablet daily. - zolpidem (AMBIEN) 10 mg ORAL Tab Take by mouth at bedtime as needed. No current facility-administered medications for this visit. ALLERGIES: ALLERGIES Allergen Reactions - Aspirin Unknown - Bactrim [Sulfametho* Unknown - Ciprofibrate Unknown - Codeine Unknown - Darvocet A500 [Prop* stupor, off balance - Darvon [Propoxyphen* off balance, stupor - Keflex [Cephalexin] itch and rash - Levaquin [Levofloxa* skin turn fire red, and stinging - Macrobid [Nitrofura* Unknown - Penicillins convulsions and blindness - Sulfa (Sulfonamide * Unknown PAST MEDICAL HISTORY: PAST MEDICAL HISTORY Diagnosis Date - Anxiety - Depression - Gastric polyp - Hyperglycemia due to type 2 diabetes mellitus (HCC) - Hypothyroidism - IBS (irritable bowel syndrome) - Insomnia - PMH - PAST MEDICAL HISTORY OF fibromylagia - Thyroid cancer (HCC) 05/23/2010 PAST SURGICAL HISTORY: PAST SURGICAL HISTORY Procedure Laterality Date - ; THYROIDECTOMY TOTAL OR COMPLETE 05/23/2010 thyroid cnacer - COLONSCOPY SCREENING HIGH RISK 2007 - THYROIDECTOMY 05/23/2003 partial left side - VAGINAL HYSTERECTOMY 05/23/2005 Hysterectomy, vaginal, uterus and cervix only FAMILY HISTORY: FAMILY HISTORY Problem Relation Age of Onset - Thyroid Sister sandra thyroidectomy - other (hypothyroid [Other]) Daughter both daughter - other (thyroid nodules [Other]) Daughter botherdaughter SOCIAL HISTORY: Social History Tobacco Use - Smoking status: Never Smoker Substance Use Topics - Alcohol use: No - Drug use: No COMPLETE REVIEW OF SYSTEMS: CONSTITUTION: Negative for pain, fatigue, weight loss, or appetite loss. EENT: Negative for mouth soreness, antibiotics use, epistaxis, visual problems, neck or facial swelling, fever/chills, bleeding gums, or hearing loss. CV: Negative for edema, calf swelling, palpitations, or chest pain. RESPIRATORY: Negative for cough, SOB, hemoptysis, or wheezing. GI: Negative for nausea/vomiting, heartburn, vomiting blood, dysphasia, diarrhea, blood in stool, constipation, early satiety, PICA, vegetarian, poor nutrition, abdominal fullness, or abdominal pain. NEUROLOGICAL: Negative for nu (more content not included)... Normal [facility] Vital Signs Date Time Vital Sign Value Performing Clinician Facility 02-26-2024 14:01-0500 Body height 163.83 cm MD Venus Chen Work Phone: [facility] 07-18-2023 14:01-0500 Body mass index (BMI) [Ratio] 43.2 kg/m2 MD Venus Chen Work Phone: [facility] 07-18-2023 14:01-0500 Body weight 116.11 kg MD Venus Chen Work Phone: [facility] 07-18-2023 14:01-0500 Diastolic blood pressure 77 mm[Hg] MD Venus Chen Work Phone: [facility] 07-18-2023 14:01-0500 Heart rate 94 /min MD Venus Chen Work Phone: [facility] 07-18-2023 14:01-0500 Systolic blood pressure 119 mm[Hg] MD Venus Chen Work Phone: [facility] 09-02-2022 09:45-0400 Body height 163.83 cm Venus Chen Other [facility] [employer] Other 09-02-2022 09:45-0400 Diastolic blood pressure 80 mm[Hg] Venus Chen Other [facility] [employer] Other 09-02-2022 09:45-0400 SaO2% (BldA) [Mass fraction] 99 % Venus Chen Other [employer] [facility] [employer] Other 09-02-2022 09:45-0400 Systolic blood pressure 132 mm[Hg] Venus Chen Other [facility] Other 06-23-2022 09:45-0500 Body height 163.83 cm Venus Chen Other [facility] Other 06-23-2022 09:45-0500 Body mass index (BMI) [Ratio] 41.91 kg/m2 Venus Chen Other [facility] Other 06-23-2022 09:45-0500 Body weight 112.49 kg Venus Chen Other [facility] Other 06-23-2022 09:45-0500 Diastolic blood pressure 84 mm[Hg] Venus Chen Other [facility] Other 06-23-2022 09:45-0500 SaO2% (BldA) [Mass fraction] 96 % Venus Chen Other [facility] Other 06-23-2022 09:45-0500 Systolic blood pressure 130 mm[Hg] Venus Chen Other [facility] Other Encounters Encounter Date Encounter Type Care Provider Facility Start: 11-08-2023 End: 11-08-2023 Evaluation and management of inpatient LBIBY Melendrez [facility] Start: 11-07-2023 End: 11-08-2023 Evaluation and management of inpatient JO-ANN CUELLAR [facility] Start: 10-31-2023 End: 10-31-2023 ambulatory VENUS CHEN [facility] Start: 10-11-2023 End: 10-11-2023 ambulatory RUDDY SIMMONS [facility] Start: 08-03-2023 End: 08-03-2023 ambulatory Venus Chen Facility:[facility] Start: 08-03-2023 End: 08-03-2023 ambulatory MD Venus Chen Work Phone: [facility] Work Phone: Start: 08-03-2023 End: 08-03-2023 Patient encounter procedure MD Venus Chen Work Phone: [facility] [place] Work Phone: Start: 07-30-2023 Non-patient / Non-visit MD Martha Chen Work Phone: [facility] [employer] Work Phone: Start: 07-18-2023 End: 07-18-2023 Patient encounter procedure MD Venus Chen Work Phone: [facility] Work Phone: Start: 04-13-2023 End: 04-14-2023 ambulatory VENUS CHEN Facility:[facility] Start: 04-11-2023 End: 04-11-2023 ambulatory Venus Chen Other [facility] Other Start: 04-11-2023 Telephone encounter Venus Chen [facility] Start: 01-21-2023 End: 01-21-2023 ambulatory Venus Chen Other [facility] Other Start: 01-21-2023 Telephone encounter Venus Chen [facility] Start: 01-10-2023 End: 01-10-2023 ambulatory Venus Chen Other [facility] Other Start: 01-10-2023 Telephone encounter Venus Chen [facility] Start: 11-22-2022 End: 11-22-2022 ambulatory [facility] Start: 11-11-2022 End: 11-12-2022 ambulatory [facility] Facility:[facility] Start: 09-06-2022 End: 09-07-2022 ambulatory [facility] Start: 09-02-2022 End: 09-02-2022 ambulatory Venus Chen Other [facility] Other Start: 09-02-2022 Office outpatient vi sit 15 minutes Venus Chen [facility] Start: 07-15-2022 End: 07-15-2022 ambulatory Venus Chen Other [facility] Other Start: 07-15-2022 Telephone encounter Venus Chen [facility] Start: 06-23-2022 End: 06-23-2022 ambulatory Venus Chen Other [facility] Other Start: 06-23-2022 Office outpatient vi sit 15 minutes Venus Chen [facility] Start: 06-07-2022 Annual wellness visit Venus duarte Other [facility] Other Start: 03-10-2022 End: 03-10-2022 Patient encounter procedure VENUS CHEN [facility] Start: 12-19-2021 End: 12-20-[address] VENUS CHEN Facility: Start: 10-03-2020 Adult health examination Venus Chen Other [facility] Other Procedures Date Procedure Procedure Detail Performing Clinician Start: 08-03-2023 Computed tomography of abdomen and pelvis with contrast MD Venus Chen Work Phone: Start: 08-05-2017 Screening for malign ant neoplasm of colon Venus Chen Other Start: 07-05-2014 Screening mammography Parvin Chen Other Start: 06-25-2013 Pre-surgery evaluation Venus Chen Other Start: 04-25-2013 General examination of patient Venus Chen Other Screening procedure Venus duarte Other Plan of Treatment Date Care Activity Detail Author Comprehensive metabo lic 2000 panel - Serum or Plasma [facility] Immunizations Immunization Date Immunization Notes Care Provider Fa cility 02-09-2023 influenza, injectabl e, quadrivalent, preservative free Venus Chen Other [facility] 01-27-2022 influenza virus vaccine, split virus (incl. purified surface antigen) Venus Chen Other [facility] Other 01-27-2022 influenza virus vaccine, unspecified formulation MD Venus Chen Work Phone: [facility] 04-26-2021 COVID-19 Vaccine Pfi zer - Documentation Purposes Only Venus Chen Other [facility] 02-24-2021 influenza virus vaccine, split virus (incl. purified surface antigen) Venus Chen Other [facility] [employer] Other 02-24-2021 influenza virus vaccine, unspecified formulation MD Venus Chen Work Phone: [facility] 01-22-2020 influenza virus vaccine, split virus (incl. purified surface antigen) Venus Chen Other [facility] [employer] Other 01-22-2020 influenza virus vaccine, unspecified formulation MD Venus Chen Work Phone: [facility] 02-19-2019 influenza virus vaccine, split virus (incl. purified surface antigen) Venus Chen Other [facility] [employer] Other 02-19-2019 influenza virus vaccine, unspecified formulation MD Venus Chen Work Phone: [facility] 03-01-2018 influenza virus vaccine, split virus (incl. purified surface antigen) Venus Chen Other [facility] [employer] Other 03-01-2018 influenza virus vaccine, unspecified formulation MD Venus Chen Work Phone: [facility] 03-17-2017 tetanus and diphther ia toxoids, adsorbed, preservative free, for adult use (5 Lf of tetanus toxoid and 2 Lf of diphtheria toxoid) Venus Chen Other [facility] 01-22-2015 tetanus and diphther ia toxoids, adsorbed, preservative free, for adult use (5 Lf of tetanus toxoid and 2 Lf of diphtheria toxoid) Venus Chen Other [facility] 03-13-2014 tetanus and diphther ia toxoids, adsorbed, preservative free, for adult use (5 Lf of tetanus toxoid and 2 Lf of diphtheria toxoid) Venus Chen Other [facility] Payers Date Payer Category Payer Unknown [id number] 1960 Unknown [id number] 1960 Unknown [id number] 1962 Unknown [id number] 6 1962 Unknown [id number] 6 1962 Unknown [id number] 6 1962 Unknown [id number] 6 1962 Unknown [id number] 6 1962 Unknown [id number] 6 1959 Private Health Insurance [id number] Private Health Insurance [facility] [id number] Social History Date Type Detail Facility Tobacco smoking status [facility] Sex Assigned At Female [facility] Start: 09-02-2022 Tobacco smoking stat us SDIS Never smoked tobacco (finding) [facility] Start: 1960 Sex Assigned At Female F [facility] Clinical Notes 01-20-2021 to 11-22-2022 Note Date & Type Note Facility 11-22-2022 Note [facility] Note Chief Complaint: Patient here for 3 mo follow up palpitations, SVT, and diastolic dysfunction. She did not have echo done that was ordered at last apt in August 2022. Says she is not having as many palpitations as before. Her front services agent told her she would have some symptoms due to her thyroid condition. HPI: Nia Calhoun is a 62 y.o. female With a history of longstanding palpitations, recently diagnosed diabetes here to discuss her palpitations. These are actually improved since starting Ozempic. Predominantly at night when she lays down to sleep. They are not associated with lightheadedness, dizziness, syncope or chest pain. She has no significant shortness of breath. She denies exertional chest pain or dyspnea. She has had a plethora of investigations in the past for the palpitations; beta-blockers were also offered however the patient declined. Cardiology ROS: Review of Systems Cardiovascular: Positive for palpitations (improving). Respiratory: Positive for shortness of breath (w/ palpitations at night). All other systems reviewed and are negative. Past Medical History She has a past medical history of Diabetes mellitus ([facility]), Fibromyalgia, Hyperlipidemia, Hypothyroidism, Peripheral venous insufficiency, and Venous stasis. Surgical History She has a past surgical history that includes Cholecystectomy; Hysterectomy; Tonsillectomy; and Thyroidectomy. Social History She reports that she has never smoked. She has never used smokeless tobacco. She reports that she does not currently use alcohol. No history on file for drug use. Family History Family History Problem Relation Name Age of Onset Coronary artery disease Father Arrhythmia Father Heart attack Father Coronary artery disease Sister Arrhythmia Brother Allergies Adhesive tape-silicones; Darvocet a500 [propoxyphene n-acetaminophen]; Latex, natural rubber; Morphine; Penicillins; and Sulfamethoxazole-trimethoprim Medications Current Outpatient Medications: cholecalciferol (Vitamin D-3) 25 MCG (1000 UT) capsule, Take 4,000 Units by mouth in the morning., Disp: , Rfl: insulin glargine (Lantus) 100 unit/mL (3 mL) pen, Basaglar KwikPen U-100 Insulin 100 unit/mL (3 mL) subcutaneous, Disp: , Rfl: liothyronine (Cytomel) 5 mcg tablet, liothyronine 5 mcg tablet, Disp: , Rfl: metFORMIN XR (Glucophage-XR) 500 mg 24 hr tablet, TAKE 2 TABLETS BY MOUTH TWICE A DAY IN AM AND PM FOR 90 DAYS, Disp: , Rfl: Tirosint 125 mcg capsule, TAKE 1 CAPSULE BY MOUTH EVERY DAY ON EMPTY STOMACH IN THE MORNING, Disp: , Rfl: venlafaxine XR (Effexor-XR) 150 mg 24 hr capsule, venlafaxine ER 150 mg capsule,extended release 24 hr, Disp: , Rfl: zolpidem (Ambien) 5 mg tablet, zolpidem 5 mg tablet, Disp: , Rfl: Last Recorded Vitals BP 124/81 (BP Location: Left arm, Patient Position: Sitting) Pulse 86 Ht 1.651 m (5' 5 ) Wt 114 kg (251 lb) SpO2 96% BMI 41.77 kg/m??? Physical Examination: GENERAL: alert and oriented x3, well developed, in no acute distress. HEAD: atraumatic, normocephalic. EYES: CHERRY, EOMI. NECK: trachea midline, no JVD present, no carotid bruits present. CARDIAC: S1, S2 present. RRR. No murmur, rubs, or gallops. RESPIRATORY: CTAB, no increased effort of breathing, no rales, rhonchi, or wheezing. ABDOMEN: soft, nontender, nondistended. EXTREMITIES: no lower extremity edema, peripheral pulses are 2+ bilaterally. No rash/skin discoloration present. NEURO: strength/sensation equal and symmetric in bilateral upper and lower extremities. PSYCH: appropriate mood, affect, and judgement. 12/19/2021 Cr 0.86, BUN 10, K 4.2, Na 14, eGFR>60, ALT 32, AST 15 Chol: 221, HDL 63, trig 102, LDL 137 TSH 0.428 Testing/Procedures: Holter 08/31/2021: predominant rhythm sinus rhythm, max rate 148, 1 episode of PSVT with duration of 7 beats with HR 110 bpm; ventricular ectopy <0.01% Ankle-brachial indices 10/28/2020 Comments Biphasic Doppler waveforms of the bilateral lower extremities. PVR waveforms with normal upstroke, amplitude blood loss of dicrotic notch. Right: Significant decrease 32 mm between the thigh and the cough. Normal ABIs and TBI Left: Significant decrease 53 mm between the thigh and calf, normal ABIs and TBI's Impression: Increased index consistent with calcified noncompressible arterial rodriguez which may underestimate the degree of arterial disease. Normal arterial evaluation of the lower extremities without hemodynamic impairment at rest. Right DENISE 1.15 left DENISE 1.02 ECHO 06/13/2013 Normal LVEF, 55%, grade 1 diastolic dysfunction Mildly dilated RV with normal systolic function Normal valvular doppler study Assessment: Palpitations History of short runs of paroxysmal supraventricular tachycardia Premature ventricular contractions Diastolic dysfunction Dyslipidemia Plan: An echocardiogram will be ordered In the absence of structu (more content not included)... [facility] 09-06-2022 Note Patient here c/o an noying palpitations per Dr. Chen. She was last seen by Dr. Blake in Dec 2020 for claudication. She has tried and failed Zetia in the past, due to myalgias. Says she's never tried a statin before. Last lipid was done in November 2021. She will be starting Ozempic soon for DM and wants to make sure palpitations are benign. Her SOB is at rest. LE edema is nothing new she says. Review of Systems Cardiovascular: Positive for leg swelling and palpitations. Respiratory: Positive for shortness of breath. All other systems reviewed and are negative. [facility] 09-06-2022 Note Cardiovascular Medic [facility] SUBJECTIVE Chief Complaint Patient presents with Palpitations Nia Calhoun is a 62 y.o. female here for follow-up. She was last seen by Dr. Blake 01/12/2021. She has known fibromyalgia, diabetes, hypothyroidism. HPI Patient here c/o annoying palpitations per Dr. Chen. She was last seen by Dr. Blake in Dec 2020 for claudication. She has tried and failed Zetia in the past, due to myalgias. Says she's never tried a statin before. Last lipid was done in November 2021. She will be starting Ozempic soon for DM and wants to make sure palpitations are benign. Her SOB is at rest. LE edema is nothing new she says. She reports having palpitations since she was about 18 years old. She has daily palpitations when she lays down. She has accompanied sx's of shortness of breath. Feels like her heart is racing, skipping beats, or is irritabable. She falls asleep and when she wakes up they are gone. She drinks some caffeine in the AM but avoids it after this. She follows with endocrinology for her thyroid. No shortness of breath with exertion, PND, chest pain or dizziness, syncope/near syncope. She reports she typically does not tolerate medications well, tends to have various side effects. Patient Active Problem List Diagnosis Depression Edema Fibromyalgia Hypothyroid Hypothyroidism, postsurgical Malignant neoplasm of thyroid gland (CMS/HCC) Type 2 diabetes mellitus (CMS/HCC) Vitamin D deficiency Weight gain Past Medical History: Diagnosis Date Diabetes mellitus (CMS/HCC) Fibromyalgia Hyperlipidemia Hypothyroidism Peripheral venous insufficiency Venous stasis Family History Problem Relation Name Age of Onset Coronary artery disease Father Arrhythmia Father Heart attack Father Coronary artery disease Sister Arrhythmia Brother Social History Tobacco Use Smoking status: Never Smokeless tobacco: Never Substance Use Topics Alcohol use: Not Currently Allergies Allergen Reactions Adhesive Tape-Silicones SENSITIVE Darvocet A500 [Propoxyphene N-Acetaminophen] Latex, Natural Rubber Other SENSITIVE Morphine Penicillins Other convulsions and blindness Sulfamethoxazole-Trimethoprim Unknown ROS Cardiovascular: Positive for leg swelling and palpitations. Respiratory: Positive for shortness of breath. All other systems reviewed and are negative. OBJECTIVE Visit Vitals BP 121/86 (BP Location: Left arm, Patient Position: Sitting) Pulse 91 Ht 1.651 m (5' 5 ) Wt 113 kg (250 lb) SpO2 95% BMI 41.60 kg/m??? Smoking Status Never BSA 2.28 m??? Medications: Current Outpatient Medications: cholecalciferol (Vitamin D-3) 25 MCG (1000 UT) capsule, Take 4,000 Units by mouth in the morning., Disp: , Rfl: insulin glargine (Lantus) 100 unit/mL (3 mL) pen, Basaglar KwikPen U-100 Insulin 100 unit/mL (3 mL) subcutaneous, Disp: , Rfl: liothyronine (Cytomel) 5 mcg tablet, liothyronine 5 mcg tablet, Disp: , Rfl: metFORMIN XR (Glucophage-XR) 500 mg 24 hr tablet, TAKE 2 TABLETS BY MOUTH TWICE A DAY IN AM AND PM FOR 90 DAYS, Disp: , Rfl: Tirosint 125 mcg capsule, TAKE 1 CAPSULE BY MOUTH EVERY DAY ON EMPTY STOMACH IN THE MORNING, Disp: , Rfl: venlafaxine XR (Effexor-XR) 150 mg 24 hr capsule, venlafaxine ER 150 mg capsule,extended release 24 hr, Disp: , Rfl: zolpidem (Ambien) 5 mg tablet, zolpidem 5 mg tablet, Disp: , Rfl: Physical Exam Vitals reviewed. Constitutional: Appearance: Normal appearance. She is obese. HENT: Head: Normocephalic and atraumatic. Right Ear: External ear normal. Left Ear: External ear normal. Eyes: Extraocular Movements: Extraocular movements intact. Conjunctiva/sclera: Conjunctivae normal. Pupils: Pupils are equal, round, and reactive to light. Neck: Vascular: No carotid bruit. Cardiovascular: Rate and Rhythm: Normal rate and regular rhythm. Pulses: Normal pulses. Heart sounds: Normal heart sounds. Pulmonary: Effort: Pulmonary effort is normal. Breath sounds: Normal breath sounds. Abdominal: General: Bowel sounds are normal. Palpations: Abdomen is soft. Musculoskeletal: Cervical back: Neck supple. Right lower leg: Edema present. Left lower leg: Edema present. Comments: Trace BLE edema Skin: General: Skin is warm and dry. Neurological: General: No focal deficit present. Mental Status: She is alert and oriented to person, place, and time. Psychiatric: Mood and Affect: Mood normal. Behavior: Behavior normal. Thought Content: Thought content normal. Judgment: Judgment normal. Labs: 12/19/2021 Cr 0.86, BUN 10, K 4.2, Na 14, eGFR>60, ALT 32, AST 15 Chol: 221, HDL 63, trig 102, LDL 137 TSH 0.428 Testing/Procedures: Holter 08/31/2021: predominant rhythm sinus rhythm, max rate 148, 1 episode of PSVT with duration of 7 beats with HR 110 bpm; ventricular ectopy <0.01% Ankle-brachial indices 10/28/2020 Comments Biphasic Doppler w (more content not included)... [facility] 09-02-2022 Evaluation note Encounter Date Diagnosis Assessment Notes Aug, Left foot pain (ICD-10 - M79.672) Advised continue soaking w warm water. Do not squeeze or stick area w needle. Small FB should work its way out. Aug, Palpitations (ICD-10 - R00.2) Pt has had problems for several years. Had holter. Has thyroid adjustment from her specialist. Requests referral to Dr. Blake. [facility] Other 02-01-2023 Evaluation note* Encounter Date Diagnosis Assessment Notes Treatment Notes Treatment Clinical Notes Jun, Hypothyroidism (ICD-10 - E03.9) Follow-up as scheduled with endocrinology tomorrow. Jun, Essential hypertension (ICD-10 - I10) Stable on present medication Jun, Hyperglycemia due to type 2 diabetes mellitus (ICD-10 - E11.65) Follow-up with endocrinology tomorrow Jun, Small intestinal bacterial overgrowth (ICD-10 - K63.89) Patient will schedule follow-up with gastroenterology [facility] Other 08-31-2021 NoteHNO ID: [id number] Author: Wallace Laureano MD Service: ? Author Type: Physician Type: Progress Notes Filed: 01/22/2021 12:43 PM Note Text: PATIENT NAME: Nia Calhoun DATE: 01/20/2021 PRIMARY CARE PHYSICIAN: Venus Chen MD OTHER PHYSICIANS: Dr. Henry ([facility] [place]) HPI: This is a 60 year old female self-referred for evaluation of abnormal labs (homozygous MTHFR mutation) detected on previous genetic analysis. Apparently the patient underwent genetic testing with [employer] in 2012, and was found to have multiple heterozygous mutations of no clinical significance. However, she subsequently underwent additional testing with [employer] and was found to have a homozygous MTHFR [id number] mutation. The patient has never had evidence of thromboembolic disease, although her son was diagnosed with a DVT at the age of 36. Apparently her son has a similar MTHFR mutation. Apparently the patient's second daughter was born with occult spinal bifida, and she has questions whether or not her MTHFR mutation correlates with her daughter's defect. The patient apparently has been diagnosed with mild B12 deficiency in the past, and currently takes sublingual B12 supplements as well as multiple vitamins. The patient has a remote history of thyroid cancer for which she underwent a thyroidectomy, otherwise she is very healthy. However, she was recently diagnosed with diabetes, and treatment with Metformin was recommended. The patient now comes in with questions concerning any risks of taking Metformin given her MTHFR mutation. The patient is aware that patients with MTHFR mutations can have an abnormal B12 metabolism, and has concerns given the fact that Metformin can also lead to B12 deficiency. Clinically the patient feels well. At this time she has no particular complaints. Review of systems is essentially negative. MEDICATIONS: Current Outpatient Medications Medication Sig - Levothyroxine (TIROSINT) 112 mcg cap Take 112 mcg by mouth once daily. - liothyronine (CYTOMEL) 5 mcg tablet Take 1 tablet by mouth twice daily. - venlafaxine XR (EFFEXOR XR) 75 mg 24 hr capsule Take 1 capsule by mouth once daily. - Cholecalciferol, Vitamin D3, (VITAMIN D) 1,000 unit cap Take 4 capsules by mouth once daily. - multivitamin tablet Take 1 tablet by mouth once daily. - COMPOUNDED PRESCRIPTION Vitamin D 5,000 IU, Take one(1) tablet daily. - zolpidem (AMBIEN) 10 mg ORAL Tab Take by mouth at bedtime as needed. No current facility-administered medications for this visit. ALLERGIES: ALLERGIES Allergen Reactions - Aspirin Unknown - Bactrim [Sulfametho* Unknown - Ciprofibrate Unknown - Codeine Unknown - Darvocet A500 [Prop* stupor, off balance - Darvon [Propoxyphen* off balance, stupor - Keflex [Cephalexin] itch and rash - Levaquin [Levofloxa* skin turn fire red, and stinging - Macrobid [Nitrofura* Unknown - Penicillins convulsions and blindness - Sulfa (Sulfonamide * Unknown PAST MEDICAL HISTORY: PAST MEDICAL HISTORY Diagnosis Date - Anxiety - Depression - Gastric polyp - Hyperglycemia due to type 2 diabetes mellitus (HCC) - Hypothyroidism - IBS (irritable bowel syndrome) - Insomnia - PMH - PAST MEDICAL HISTORY OF fibromylagia - Thyroid cancer (HCC) 05/23/2010 PAST SURGICAL HISTORY: PAST SURGICAL HISTORY Procedure Laterality Date - ; THYROIDECTOMY TOTAL OR COMPLETE 05/23/2010 thyroid cnacer - COLONSCOPY SCREENING HIGH RISK 2007 - THYROIDECTOMY 05/23/2003 partial left side - VAGINAL HYSTERECTOMY 05/23/2005 Hysterectomy, vaginal, uterus and cervix only FAMILY HISTORY: FAMILY HISTORY Problem Relation Age of Onset - Thyroid Sister sandra thyroidectomy - other (hypothyroid [Other]) Daughter both daughter - other (thyroid nodules [Other]) Daughter botherdaughter SOCIAL HISTORY: Social History Tobacco Use - Smoking status: Never Smoker Substance Use Topics - Alcohol use: No - Drug use: No COMPLETE REVIEW OF SYSTEMS: CONSTITUTION: Negative for pain, fatigue, weight loss, or appetite loss. EENT: Negative for mouth soreness, antibiotics use, epistaxis, visual problems, neck or facial swelling, fever/chills, bleeding gums, or hearing loss. CV: Negative for edema, calf swelling, palpitations, or chest pain. RESPIRATORY: Negative for cough, SOB, hemoptysis, or wheezing. GI: Negative for nausea/vomiting, heartburn, vomiting blood, dysphasia, diarrhea, blood in stool, constipation, early satiety, PICA, vegetarian, poor nutrition, abdominal fullness, or abdominal pain. NEUROLOGICAL: Negative for numbness/tingling, dizziness, gait disturbance, headache, speech disturbance, tremor, hemiparesis/sensory loss, or change in mental status. MUSCULOSKELETAL: Negative for joint pain, joint swelling, or proximal muscle weakness. SKIN: Negative for hair loss, bruising, nail changes, rash, itching, pallor, or (more content not included)...[facility] Plan note No data available for this section [facility] noteNo InformationNort piSociety Other Evaluation note* Diagnosis Onset Date Resolution Status Hypothyroidism acute Right sided abdominal pain a cute Type 2 diabetes mellitus with hyperglycemia acute [facility] Work Phone: History general Narrative - Reported* Type Description Date Medical History Paronychia of toe Medical History Intermittent palpitations Medical History Hypothyroidism Medical History Diastolic blood pressure 90 mm H g or higher Medical History Essential hypertension Medical History Hyperglycemia due to type 2 diab etes mellitus Medical History Fibromyalgia Medical History Small intestinal bacterial overg rowth Medical History Screening for condition Medical History Cellulitis of right foot Medical History Pain, joint, knee, right Medical History Claudication Medical History Changing skin lesion Medical History Yeast infection Medical History Breast abscess Medical History Insomnia, persistent Medical History Anxiety and depression Medical History Wellness examination Surgical History COLONOSCOPY 2008 Surgical History GRILLIS VAG HYST 2005 Surgical History BSO 2006 Surgical History THYROIDECTOMY 2010 Surgical History PARTIAL THYROID LOBECTOMY 2003 Surgical History EGD 04/2018 Surgical History CHOLECYSTECTOMY 01/2016 Hospitalization History SEE SURGICAL HX [facility] Other [facility] Discharge instructions No data available for this section [facility] note No data available for this section [facility] Summary Purpose Family History No Family History Records Found Relationship Condition Age at Onset Recorded Date/T christiano father Heart disease Unknown Unknown Not Specified Unknown sister Malignant neoplasm Unknown Advance Directives No Advanced Directives Records Found Advance Directive Response Recorded Date/ Time Advance Directives No June 10:18am Reason for Referral Reason *FU 09/09 Palpitat ions that occur nightly. Diagnosis 1 Palpitations (R00.2) Referral Organization [facility] Referring Provider First Name Venus Referring Provider Last Name April Referring Provider Specialty [facility] Referred Organization [facility] Referred Provider Fabiola Blake Referred Address [address] [place] [address], [place],[address] Referred Provider Specialty Cardiology Referral Priority Routine General Notes Geena Henry 03:42:59 PM >received today, notes locked, insurance card attached, referral faxed Clinical Notes F: [id number] Chief Complaint and Reason for Visit Chief Complaint BS Discussion E11.65 E03.9 R10.9 Reason for Visit Hypothyroidism Right sided abdominal pain Type 2 diabetes mellitus with hyperglycemia Additional Source Comments INFORMATION SOURCE (unrecogn ized section and content) DATE CREATED AUTHOR 06/17/2021 [facility] DATE CREATED AUTHOR AUTHOR'S ORGANIZ ATION 10/29/2022 [facility] DATE CREATED AUTHOR AUTHOR'S ORGANIZ ATION 11/22/2022 [facility] DATE CREATED AUTHOR AUTHOR'S ORGANIZ ATION 04/16/2023 [facility] DATE CREATED AUTHOR AUTHOR'S ORGANIZ ATION 08/05/2023 [facility] DATE CREATED AUTHOR AUTHOR'S ORGANIZ ATION 10/13/2023 [facility] DATE CREATED AUTHOR AUTHOR'S ORGANIZ ATION 11/09/2023 [facility] Patient Care team informatio n (unrecognized section and content) Team Status: Active Member Role Status Dates Venus Chen MD Primary Care Provider Active Team Status: Inactive Member Role Status Dates Venus Chen MD Primary Care Provide r, Attending Provider Active Start: July 18, 2023 End: July 18, 2023 Team Status: Active Member Role Status Dates Venus Chen MD Primary Care Provide r, Attending Provider Active Start: July 30, 2023 Team Status: Inactive Member Role Status Dates Venus Chen MD Primary Care Provide r, Attending Provider Active Start: August 03, 2023 End: August 03, 2023 REASON FOR VISIT (unrecogniz ed section and content) Check UpPRESCRIPTION REFILLs omething stuck in footRefillPossible medication reactionRefill Goals (unrecognized section and content) Goals may be documented in a n alternate section FOR RECORDS PERTAINING TO PATIENTS WHO ARE OR HAVE BEEN ENROLLED IN A CHEMICAL DEPENDENCY/SUBSTANCEABUSE PROGRAM, SOME INFORMATION MAY BE OMITTED. This clinical summary was aggregated from multiple sources. Caution should be exercised in using it in the provision of clinical care. This summary normalizes information from multiple sources, and as a consequence, information in this document may materially change the coding, format and clinical context of patient data. In addition, data may be omitted in some cases. CLINICAL DECISIONS SHOULD BE BASED ON THE PRIMARY CLINICAL RECORDS. [facility] [email or web address] provides no warranty or guarantee of the accuracy or completeness of information in this document.
[2024-03-02 11:42] LABS: Estimated Average Glucose 151 mg/dL; Glycohemoglobin A1C 6.9 % (4.5-6.2)
[2024-03-02 12:01] LABS: Alanine Aminotransferase 28 U/L (14-59); Albumin Globulin Ratio 0.9; Albumin Level 3.3 g/dL (3.4-5.0); Alkaline Phosphatase 96 U/L (46-116); Anion Gap 10.3; Aspartate Amino Transferase 15 U/L (15-37); BUN Creatinine Ratio 10.4; Bilirubin Total 0.3 mg/dL (0.2-1.0); Calcium 9.1 mg/dL (8.5-10.1); Carbon Dioxide 31.5 mmol/L (21.0-32.0); Chloride 102 mmol/L (98-107); Estimated GFR (African America >60 (>=60 mL/min/1.73m^2); Estimated GFR (Non-African Ame 59 (>=60 mL/min/1.73m^2); Globulin 3.7 g/dL; Glucose 122 mg/dL (74-106); Potassium 3.8 mmol/L (3.5-5.1); Sodium 140 mmol/L (136-145); Thyroid Stimulating Hormone 1.084 uIU/mL (0.358-3.740)
[2024-03-02 12:53] LABS: Creatinine Urine Random 47.47 mg/dL (20.00-300.00); Microalbumin Urine Random <1.3 mg/dL (<=30.0)
== END 2024-03-02 11:22 | disposition home or self-care (01) ==
LOC: LAB 11:21
PROVIDERS: PCP Family Medicine
DX: E11.9 Type 2 diabetes mellitus without complications (principal); Z85.850 Personal history of malignant neoplasm of thyroid
CPT/HCPCS: 36415; 80053; 80061; 82043; 82570; 83036; 84443

== ENCOUNTER 2024-05-21 13:44 | Outpatient (OUT) | payer OTHER, SELFPAY ==
--- NOTE | 2024-05-21 13:46 | XR_ITS ---
[address] [address] Patient Name: NIA GREEN MRN: [id number] date: 1960 Sex: F Assigned Patient Location: [facility] Current Patient Location: Accession/Order Number: [id number] Exam Date: 05/21/2024 14:03 Report Date: 05/22/2024 07:36 At the request of: SAIGE CHEN Procedure: XR knee RT 4V PROCEDURE: XR knee RT 4V COMPARISON: None. HISTORY: Acute Pain Of Right Knee FINDINGS: BONES:No acute fracture or dislocation. Moderate to severe tricompartmental osteoarthropathy with marginal osteophyte formation. [id number]-dl-[id number] articulation of the anterior compartment SOFT TISSUES:Negative. No visible soft tissue swelling. EFFUSION:None visible. OTHER: Negative. XR/XR knee RT 4V IMPRESSION: Moderate to severe osteoarthritis Electronically authenticated by: LIBBY MARTÍNEZ Date: 05/22/2024 07:36
== END 2024-05-21 13:45 | disposition home or self-care (01) ==
LOC: RAD 13:44
PROVIDERS: PCP Family Medicine; Visit Provider Family Medicine
DX: M25.561 Pain in right knee (principal); M17.11 Unilateral primary osteoarthritis, right knee
CPT/HCPCS: 73564

== ENCOUNTER 2024-11-17 09:47 | Outpatient (OUT) | payer SELFPAY ==
--- OUTSIDE RECORDS SUMMARY | 2024-11-17 09:50 | XMS_ITS | CCD ---
Author Organization [facility] Care Team Providers Care Ramp Agent Name Role Phone VENUS CHEN Primary Care Physician [phone] VENUS CHEN Primary Care Unavailable MISC, DR CARMONA Attending Unavailable MISC, DR CARMONA Consulting Unavailable MISC, DR CARMONA Admitting Unavailable FABIOLA BLAKE Attending Unavailable OXANA RUIZ Attending Unavailable MD Venus Chen Primary Care Provider [phone] MD Venus Chen Attending Provider RUDDY SIMMONS [...] Attending Unavailable VENUS CHEN Primary Care Unavailable Venus Chen MD Primary Care Provider Los Cam MD Attending Provider [phone] Venus Chen Admitting Unavailable Venus Chen Primary Care Unavailable Venus Chen Attending Unavailable Los Cam II Admitting UnavailLos Brady II Attending UnavailVenus Yeboah Primary Care Unavailable VENUS CHEN Unavailable REFERRAL, SELF Referring Unavailable REFERRAL, SELF Attending Unavailable REFERRAL, SELF Admitting Unavailable MD VENUS CHEN Consulting Unavailable Venus Chen MD Primary Care Provider Venus Chen MD Attending Provider [phone] Allergies Allergy Classification Reported Allergen(s) Allergy Type Date of Onset Reaction(s) Facility (3 sources) Amoxicillin; Translations: [amoxicillin] Drug Allergy Unknown cause [facility] (17 sources) Ciprofloxacin; Translations: [ciprofloxacin] Drug Allergy 04-11-20 13 Unknown cause, Unknown, [facility] Comment on above: Onset Date: 04/11/20 13 (3 sources) Gluten; Translations: [Glutens] Drug allergy Unknown cause [facility] (3 sources) Latex; Translations: [Latex] Drug allergy Unknown cause [facility] (9 sources) Penicillin; Translations: [penicillin] Drug Allergy Unknown cause, Unknown [facility] (3 sources) Milk Products; Translations: [Milk Products] Drug allergy Unknown cause [facility] (6 sources) Acetaminophen / Propoxyphene Drug Allergy Unknown [facility] Other (11 sources) Aspirin; Translations: [ASPIRIN] Drug Allergy 01-20-20 21 Unknown, [facility] (6 sources) Cephalexin Drug Allergy Unknown [facility] Other (11 sources) Codeine; Translations: [CODEINE] Drug Allergy 01-20-20 21 Unknown, [facility] (7 sources) levoFLOXacin; Translations: [Levaquin] Drug Allergy 06-06-19 14 Unknown [facility] (6 sources) NITROFURANTOIN, MACROCRYSTALS / Nitrofurantoin, Monohydrate Drug Allergy Unknown [facility] Other (6 sources) Sulfamethoxazole / Trimethoprim Drug Allergy Unknown [facility] Other (6 sources) Substance with sulfonamide structure and antibacterial mechanism of action (substance) Drug allergy Unknown [facility] Other (1 source) Acetaminophen / HYDROcodone Drug Allergy 06-13-19 14 [facility] (1 source) Acetaminophen / oxyCODONE Drug Allergy 06-13-19 14 [facility] (4 sources) Morphine; Translations: [MORPHINE] Drug Allergy 06-13-19 14 [facility] (7 sources) Penicillins; Translations: [PENICILLINS] Drug allergy (disorder) 04-18-20 07 Hives [facility] Rep[facility] Comment on above: Onset Date: 04/11/20 13 (1 source) thyroid ([facility]) Drug Allergy 06-13-19 14 [facility] (1 source) Darvocet-N 100 Drug allergy (disorder) 06-13-19 14 [facility] (3 sources) natural latex rubber; Translations: [LATEX, NATURAL RUBBER] Propensity to adverse reactions to drug (disorder) 08-23-19 18 [facility] Repository (1 source) Sulfamethoxazole / Trimethoprim; Translations: [SULFAMETHOXAZOLE-T RIMETHOPRIM] Drug Allergy 01-20-20 21 [facility] Rep[facility] (3 sources) ADHESIVE TAPE-SILICONES; Translations: [ADHESIVE TAPE-SILICONES] Propensity to adverse reactions to drug (disorder) 08-23-19 18 [facility] Rep[facility] (1 source) PROPOXYPHENE N-ACETAMINOPHEN; Translations: [PROPOXYPHENE N-ACETAMINOPHEN] Propensity to adverse reactions to drug (disorder) 09-07-19 23 [facility] Rep[facility] (3 sources) aspirin contraindicated Propensity to adverse reactions 04-26-20 14 Comment:advers e rxn/side effects [facility] Other (3 sources) Darvocet A500 *ANALGESICS - OPIOID* Propensity to adverse reactions 04-11-20 13 Unknown [facility] Other (3 sources) Allergies Reconciled Propensity to adverse reactions Unknown [facility] Other (3 sources) Substance with penicillin structure and antibacterial mechanism of action (substance) Drug allergy 04-11-20 13 Unknown [facility] Other (3 sources) patient allergy list reviewed by nurse or physicia Propensity to adverse reactions 04-11-20 13 Comment:Done [facility] Other (3 sources) Keflex *CEPHALOSPORINS* Propensity to adverse reactions 04-11-20 13 Unknown [facility] Other (3 sources) Acetaminophen Drug Allergy 07-18-19 24 [facility] (3 sources) Cephalexin Drug Allergy 07-18-19 24 [facility] (3 sources) Cephalosporins (Antibiotic) Allergy to substance 07-18-19 [facility] Comment on above: Onset Date: 04/11/20 13 (3 sources) levoFLOXacin Drug Allergy 07-18-19 [facility] (3 sources) Nitrofurantoin Drug Allergy 07-18-19 24 [facility] (3 sources) Propoxyphene Drug Allergy 07-18-19 [facility] (3 sources) Sulfamethoxazole Drug Allergy 07-18-19 [facility] (5 sources) Sulfonamides (Antibiotic); Translations: [SULFA (SULFONAMIDE ANTIBIOTICS)] Allergy to substance 01-20-20 [facility] (3 sources) Trimethoprim Drug Allergy 07-18-19 [facility] (3 sources) Darvocet A500 *ANALGESICS - OP Allergy to substance 07-18-19 [facility] Comment on above: Free Text Allergy: D arvocet A500 *ANALGESICS - OPIOID*; Onset Date: 04/11/2013 (2 sources) NITROFURANTOIN MONOHYD/M-CRYST; Translations: [NITROFURANTOIN MONOHYD/M-CRYST] Propensity to adverse reactions to drug (disorder) 01-20-20 [facility] Repository Medications Current Medications Medication Drug Class(es) Dates Sig (Normalized) Sig (Original) Terra DelilahRebeca (1 source) Start: 11-11-2022 Lucasjose DelilahRebeca Refills(s) 0 Start Date: 11/11/22 Status: Ordered Repeat number: 1 Cholecalciferol (2 sources) Vitamin D Start: 02-16-2024 Cholecalciferol (Vitamin D3) 62.5 mcg (2,500 unit) capsule Active MCG PO February 16, 2024 12:00am Complies with drug therapy Start: 02-16-2024 Cholecalcifero l (Vitamin D3) 62.5 mcg (2,500 unit) capsule Active MCG PO February 15, 2024 11:00pm Insulin Glargine (Lantus U-100 Insulin) 100 unit/mL solution (2 sources) Start: 02-16-2024 inject 10 [IU] by subcutaneous injection once daily in the evening Insulin Glargine (Lantus U-100 Insulin) 100 unit/mL solution Active 10 UNIT SUBCUT Every evening February 16, 2024 9:10am Start: 12-12-2023 End: 02-16-2024 inject 12 [IU] by subcutaneous injection once daily in the evening Insulin Glargine (Lantus U-100 Insulin) 100 unit/mL solution Discontinued 12 UNIT SUBCUT Every evening December 11, 2023 11:00pm February 16, 2024 9:13am levothyroxine sodium 0.125 mg oral capsule (11 sources) l-Thyroxine Start: 07-18-2023 take 1 capsule by mouth once daily Levothyroxine (Tirosint) 125 mcg capsule Active 125 MCG PO Daily July 18, 2023 1:00am Complies with drug therapy Start: 11-11-2017 take 1 capsule by mo [facility] once daily Tirosint 125 mcg (0.125 mg) oral capsule 125 microgram = 1 cap(s), Oral, Daily, On an empty stomach, Refills(s) 0, Thyroid Start Date: 11/11/17 Status: Ordered Repeat number: 1 liothyronine sodium 0.005 mg oral tablet (11 sources) l-Triiodothyronine Start: 07-18-2023 take 1 tablet by mouth once daily Liothyronine (Cytomel) 5 mcg tablet Active 5 MCG PO Daily July 18, 2023 1:00am Complies with drug therapy Start: 11-11-2017 take 2.5 ug by mouth once gene y Cytomel 2.5 mcg, Oral, Daily, Refills(s) 0, Thyroid Start Date: 11/11/17 Status: Ordered Repeat number: 1 Start: 11-11-2017 take 2.5 ug by mouth once gene y Cytomel 2.5 mcg, Oral, Daily, Refills(s) 0, Thyroid Start Date: 11/11/17 Status: Ordered take 1 tablet by becky every twenty-four hours Cytomel 5 MCG 1 tablet on an empty stomach Orally Once a day Active polyethylene glycol 3350 [id number] mg / potassium chloride 1480 mg / sodium bicarbonate 5720 mg / sodium chloride 14094 mg powder for oral solution (1 source) Osmotic Laxative Start: 11-15-2022 NuLYTELY Daniels oral powder for reconstitution See Instructions, 1 EA, Refill(s) 0, See physician instructions prior to procedure., [employer] #72, 163, cm, 11/11/22 15:08:00 EDT, Height/Length Dosing, 113.9, kg, 11/11/22 15:08:00 EDT, Weight Dosing Start Date: 11/15/22 Status: Ordered Quantity: 1.0 Unit: EA Repeat number: 1 predniSONE 20 mg oral tablet (1 source) Start: 11-13-2024 take 1 tablet by mouth twice daily Prednisone 20 mg tablet Active 20 MG PO Twice daily November 13, 2024 12:00am Complies with drug therapy Ozempic (1 source) Start: 11-11-2022 Ozempic Refill (s) 0 Start Date: 11/11/22 Status: Ordered Repeat number: 1 Tirzepatide (3 sources) Start: 11-13-2024 Tirzepatide (Mounjaro) 2.5 mg/0.5 mL pen injector Active 7 MG SUBCUT every week November 13, 2024 11:07am Complies with drug therapy Start: 12-12-2023 End: 11-13-2024 Tirzepatide (Mounjaro) 2.5 m g/0.5 mL pen injector Discontinued 2.5 MG SUBCUT every week December 12, 2023 12:00am November 13, 2024 11:07am Start: 12-12-2023 Tirzepatide (M ounjaro) 2.5 mg/0.5 mL pen injector Active 2.5 MG SUBCUT every week December 11, 2023 11:00pm 24 hr venlafaxine 150 mg extended release oral capsule (18 sources) Serotonin and Norepinephrine Reuptake Inhibitor Start: 04-09-2024 take 1 capsule by mouth once daily Venlafaxine 150 mg capsule,extended release 24hr Active 0 .ROUTE .COMPLEX April 09, 2024 4:38pm TAKE 1 CAPSULE BY MOUTH EVERY DAY Start: 10-03-2023 End: 09-03-2024 take 1 capsule by mouth once daily Venlafaxine 150 mg capsule,extended release 24hr Active 0 .ROUTE .COMPLEX September 03, 2024 2:31pm TAKE 1 CAPSULE BY MOUTH EVERY DAY Complies with drug therapy Start: 07-18-2023 End: 10-03-2023 take 1 capsule by mouth once daily Venlafaxine 150 mg capsule,extended release 24hr Discontinued 150 MG PO Daily July 18, 2023 1:00am October 03, 2023 9:00am FreeTextSig: TAKE 1 CAPSULE BY MOUTH EVERY DAY; Note: Source Status: Taking; Refills: 1; Qty: 90 Capsule; Provider: Frances Wagner Start: 11-11-2017 take 150 mg by mouth once daily venlafaxine 150 mg, Oral, Daily, Refills(s) 0, Depression Start Date: 11/11/17 Status: Ordered Repeat number: 1 take 1 capsule by mo [facility] once daily Venlafaxine HCl ER 150 MG TAKE 1 CAPSULE BY MOUTH EVERY DAY for 90 Active Vitamin B Complex tablet (2 sources) Start: 02-16-2024 take 1 tablet by mouth once daily Vitamin B Complex tablet Active 1 TAB PO Daily February 16, 2024 12:00am Complies with drug therapy Start: 02-16-2024 take 1 tablet by becky once daily Vitamin B Complex tablet Active 1 TAB PO Daily February 15, 2024 11:00pm vitamin B12 (2 sources) Vitamin B12 Start: 11-11-2017 Vitamin B12 Or al, Daily, Refills(s) 0, Prophylaxis Start Date: 11/11/17 Status: Ordered Repeat number: 1 Start: 11-11-2017 Vitamin B12 Or al, Daily, Refills(s) 0, Prophylaxis Start Date: 11/11/17 Status: Ordered Vitamin D3 (2 sources) Start: 11-11-2017 Vitamin D3 5,0 00 International_Unit, Oral, Once a day (at bedtime), Refills(s) 0, Prophylaxis Start Date: 11/11/17 Status: Ordered Repeat number: 1 Start: 11-11-2017 Vitamin D3 5,0 00 International_Unit, Oral, Once a day (at bedtime), Refills(s) 0, Prophylaxis Start Date: 11/11/17 Status: Ordered Completed/Discontinued Medications Medication Drug Class(es) Dates Sig (Normalized) Sig (Original) insulin glargine 100 unt/ml injectable solution (9 sources) Insulin Analog Start: 02-16-2024 End: 11-13-2024 inject 10 [IU] by subcutaneous injection once daily in the evening Insulin Glargine (Lantus U-100 Insulin) 100 unit/mL solution Discontinued 10 UNIT SUBCUT Every evening February 16, 2024 10:10am November 13, 2024 11:06am Start: 12-12-2023 End: 02-16-2024 inject 12 [IU] by subcutaneous injection once daily in the evening Insulin Glargine (Lantus U-100 Insulin) 100 unit/mL solution Discontinued 12 UNIT SUBCUT Every evening December 12, 2023 12:00am February 16, 2024 10:13am Start: 07-18-2023 End: 12-12-2023 Insulin Glargine (Basaglar Kwikpen U-100 Insulin) 100 unit/mL (3 mL) insulin pen Discontinued UNIT SUBCUT As Directed July 18, 2023 1:00am December 12, 2023 1:38pm FreeTextSig: as directed Subcutaneous; Note: Source Status: Taking; Provider: Tiburcio Nielson ( ) Basaglar KwikPen 100 UNIT/ML as directed Subcutaneous Active melatonin 10 mg oral capsule (2 sources) Start: 02-16-2024 End: 05-10-2024 take 1 capsule by mouth once daily at bedtime as needed Melatonin 10 mg capsule Discontinued 10 MG PO Daily at bedtime as needed February 16, 2024 12:00am May 10, 2024 10:11am metFORMIN hydrochloride 500 mg oral tablet (6 sources) Biguanide Start: 09-20-2023 End: 12-12-2023 take 1 tablet by mouth twice daily at mealtime Metformin 500 mg tablet Discontinued 500 MG PO Twice daily with meals September 20, 2023 12:00am December 12, 2023 1:39pm take 1 tablet by bekcy th every twelve hours metFORMIN HCl 1000 MG 1 tablet with a me al Orally twice a day Active Semaglutide (3 sources) Start: 07-18-2023 End: 09-20-2023 inject 1 mg by subcutaneous injection every week Semaglutide (Ozempic) 1 mg/dose (4 mg/3 mL) pen injector Discontinued 1 MG SUBCUT every week July 18, 2023 1:00am September 20, 2023 10:06am Start: 07-18-2023 End: 09-20-2023 inject 1 mg by subcutaneous injection every week Semaglutide (Ozempic) 1 mg/dose (4 mg/3 mL) pen injector Discontinued 1 MG SUBCUT every week July 18, 2023 12:00am September 20, 2023 9:06am Start: 07-18-2023 inject 1 mg by subcu taneous injection every week Semaglutide (Ozempic) 1 mg/dose (4 mg/3 mL) pen injector Active 1 MG SUBCUT every week July 18, 2023 1:00am zolpidem tartrate 5 mg oral tablet (20 sources) gamma-Aminobutyric Acid-ergic Agonist Start: 11-11-2017 End: 05-10-2024 take 1 tablet by mouth once daily at bedtime as needed Zolpidem 5 mg tablet Discontinued 5 MG PO Daily at bedtime July 18, 2023 1:00am October 11, 2023 9:58am FreeTextSig: TAKE 1 TABLET BY MOUTH EVERY DAY AT BEDTIME NEEDED; Note: Source Status: Refill; Refills: 0; Qty: 90 Tablet; Provider: Frances Archuleta Active Problems Problem Classification Problem Date Documented Da te Episodic/Chronic Abdominal pain (18 sources) Left lower quadrant pain; Translations: [Left lower quadrant pain] Onset: 3 07-18-2023 Episodic Anxiety disorders (11 sources) Mixed anxiety and depressive disorder; Translations: [Anxiety disorder, unspecified] Onset: 3 02-16-2024 Chronic Cardiac dysrhythmias (4 sources) Supraventricular tachycardia; Translations: [Ventricular premature depolarization] Onset: 3 Chronic Cardiac dysrhythmias (12 sources) Intermittent palpitations; Translations: [Palpitations] Onset: 3 Episodic Diabetes mellitus with complications (15 sources) Hyperglycemia due to type 2 diabetes mellitus; Translations: [Type 2 diabetes mellitus with hyperglycemia] Onset: 4 Chronic Diabetes mellitus without complication (4 sources) Type 2 diabetes mellitus without complications; Translations: [Type 2 diabetes mellitus without complication] Onset: 8 Chronic Disorders of lipid metabolism (5 sources) Hyperlipidemia, unspecified; Translations: [Mixed hyperlipidemia] Onset: 2 Chronic Esophageal disorders (2 sources) Gastroesophageal reflux disease; Translations: [Gastro-esophageal reflux disease without esophagitis] 02-16-2024 Chronic Essential hypertension (12 sources) Essential hypertension; Translations: [Essential (primary) hypertension] Chronic Immunizations and screening for infectious disease (3 sources) Vaccination given; Translations: [Encounter for immunization] Episodic Mycoses (9 sources) Candidiasis; Translations: [Candidiasis, unspecified] Episodic Nonmalignant breast conditions (9 sources) Inflammatory disorder of breast; Translations: [Abscess of the breast and nipple] Episodic Osteoarthritis (3 sources) Osteoarthritis of right knee joint; Translations: [Unilateral primary osteoarthritis, right knee] 06-06-2024 Chronic Other and ill-defined heart disease (2 sources) [...] diarrhea] Onset: 8 Chronic Other gastrointestinal disorders (8 sources) Small bowel bacterial overgrowth syndrome; Translations: [Other specified diseases of intestine] 09-20-2023 Episodic Other gastrointestinal disorders (1 source) Other specified diseases of intestine Episodic Other gastrointestinal disorders (3 sources) Disorder of intestine; Translations: [Other specified diseases of intestine] Episodic Other gastrointestinal disorders (2 sources) Constipation; Translations: [Constipation, unspecified] 02-16-2024 Episodic Other lower respiratory disease (2 sources) Orthopnea; Translations: [Orthopnea] Onset: 3 Episodic Other non-traumatic joint disorders (9 sources) Arthralgia of the lower leg; Translations: [Pain in right knee] Episodic Other non-traumatic joint disorders (4 sources) Pain in right knee; Translations: [Acute pain of right knee] Onset: 5 05-10-2024 Episodic Other non-traumatic joint disorders (3 sources) Joint pain; Translations: [Pain in unspecified joint] Episodic Other non-traumatic joint disorders (2 sources) Pain in left knee; Translations: [Left knee pain] 11-13-2024 Episodic Other nutritional; endocrine; and metabolic disorders (6 sources) Body mass index 40+ - severely obese; Translations: [Body Mass Index 45.0-49.9, adult] Onset: 7 Chronic Other nutritional; endocrine; and metabolic disorders (2 sources) Abnormal weight gain; Translations: [Abnormal weight gain] 02-16-2024 Episodic Other screening for suspected conditions (not mental disorders or infectious disease) (9 sources) Encounter for screening, unspecified; Translations: [Screening] Onset: 4 09-20-2023 Episodic Other skin disorders (9 sources) Disorder of skin and/or subcutaneous tissue; Translations: [Disorder of the skin and subcutaneous tissue, unspecified] Episodic Peripheral and visceral atherosclerosis (9 sources) Intermittent claudication; Translations: [Peripheral vascular disease, unspecified] Chronic Residual codes; unclassified (2 sources) Obstructive sleep apnea of adult; Translations: [Obstructive sleep apnea (adult) (pediatric)] 02-16-2024 Chronic Residual codes; unclassified (11 sources) Insomnia; Translations: [Insomnia, unspecified] Onset: 3 12-12-2023 Episodic Residual codes; unclassified (1 source) Insomnia, unspecified; Translations: [Insomnia, unspecified] 05-10-2024 Episodic Skin and subcutaneous tissue infections (20 sources) Cellulitis of right foot; Translations: [Cellulitis of right lower limb] Onset: 4 Episodic Spondylosis; intervertebral disc disorders; other back problems (2 sources) Low back pain co-occurrent with neuralgia of left sciatic nerve; Translations: [Lumbago with sciatica, left side] 11-13-2024 Episodic Thyroid disorders (16 sources) Hypothyroidism; Translations: [Hypothyroidism, unspecified] Onset: 3 Chronic Unclassified (2 sources) Esophagitis, unspecified without bleeding; Translations: [Esophagitis, unspecified without bleeding] Onset: 4 Unclassified (1 source) history of colon polyps Onset: 4 Unclassified (1 source) M25.50 - Pain in unspecified joint Past or Other Problems Problem Classification Problem [...] Test Name Value Interpretation Reference Range Facility [facility] Mamm Screen w/CAD if perf and 3D B[place] 09-11-2024 MA Mamm Screen w/CAD if perf and 3D Blake Exam Date/Time: 09/10/2024 14:04 EDT Reason for Exam: Z12.31 Report IMPRESSION: BIRADS 1 NEGATIVE, NORMAL INTERVAL FOLLOW-UP Follow-up: 12 MONTH RECALL Category A - The breasts are almost entirely fatty. Vascular calcifications: Present. EXAM: [facility] Mamm Screen w/CAD if perf and 3D Blake DATE: 09/10/2024 1:47 PM CLINICAL HISTORY: Z12.31. COMPARISONS: 04/13/2023, 03/10/2022, and 10/17/2020. TECHNIQUE: Routine full-field digital mammograms and 3D breast tomosynthesis were obtained of both breasts. FINDINGS: There are no developing densities, suspicious microcalcifications, or areas of architectural distortion identified on the current study. No significant changes are identified from the prior studies, given differences in technique and positioning. Dense Breast: No. CAD analysis was performed and used in the interpretation. Board Certified Radiologists. Accredited by the ACR and FDA. MAMMOGRAPHY IS VERY IMPORTANT TO YOUR HEALTH. THE CURRENT CITIZEN OF [place] [employer] GUIDELINES RECOMMENDS ANNUAL MAMMOGRAPHY BEGINNING AT AGE 42. THIS FACILITY UTILIZES A REMINDER SYSTEM TO ENSURE ALL PATIENTS RECEIVE REMINDER NOTIFICATIONS AT THE APPROPRIATE TIME BASED ON THE RECOMMENDATIONS OF THIS EXAM. Report Ordering Provider: REFERRAL, SELF FINAL REPORT Dictated: 09/11/2024 4:40 pm Guido Gutiérrez MD Signed (Electronic Signature): 09/11/2024 4:40 pm Signed by: Guido Gutiérrez MD Transcribed by: NEIL Technologist: [facility] Assessment: BI-RADS Category 1-Negative Recommendation: Normal interval follow-up Normal [facility] X-ray reportOrdered By: Devon Feliciano on 06-06-2024 Study report [facility] [address] [place] [address] XRay Report Signed Patient: Nia Calhoun MR#: [id number] : 1960 Acct:[id number] Age/Sex: 64 / F ADM Date: 5 [place] [facility] [place]: Type: [facility] Attending Dr: Los Cam II, MD Copies to: Los Cam MD~ Ordering Provider: Los Cam MD Date of Service: 06/06/24 XR/XR knee RT 4V*: M25.561 - Pain in right knee ([id number]) XR/XR pelvis 1-2V: M25.561 - Pain in right knee AP PELVIS: , Right knee 4 views CLINICAL HISTORY: Right knee pain for months. COMPARISON: None Pelvis: Mild degenerative changes of the hips without acute bony process. Additional degenerative changes involving the visualized lower lumbar spine and SI joints. Right knee: Moderately severe degenerative changes with patellofemoral and weightbearing joint space narrowing. No acute bony process. XR/XR pelvis 1-2V IMPRESSION: MILD DEGENERATIVE CHANGES OF THE HIPS WITHOUT ACUTE BONY PROCESS. MODERATELY SEVERE DEGENERATIVE CHANGES OF THE RIGHT KNEE WITHOUT ACUTE BONY PROCESS. Impression dictated by: Luis A Feliciano Jr., D.O.06/06/2024 4:34 PM Dictation Location: [place] [address] Transcribed By: [facility] 06/06/24 1634 Dictated By: Luis A Feliciano Jr, DO 06/06/24 1633 Signed By: 06/06/24 1634 [facility] XR knee RT 4V*on 06-06-2024 XR knee RT 4V* [facility] [address] [place] [address] XRay Report Signed Patient: Nia Calhoun MR#: [id number] : 1960 Acct:[id number] Age/Sex: 64 / F ADM Date: 06/06/24 [place] [facility] [place]: Type: [facility] Attending Dr: Los Cam II, MD Copies to: Los Cam MD Ordering Provider: Los Cam MD Date of Service: 06/06/24 XR/XR knee RT 4V*: M25.561 - Pain in right knee ([id number]) XR/XR pelvis 1-2V: M25.561 - Pain in right knee AP PELVIS: , Right knee 4 views CLINICAL HISTORY: Right knee pain for months. COMPARISON: None Pelvis: Mild degenerative changes of the hips without acute bony process. Additional degenerative changes involving the visualized lower lumbar spine and SI joints. Right knee: Moderately severe degenerative changes with patellofemoral and weightbearing joint space narrowing. No acute bony process. XR/XR pelvis 1-2V IMPRESSION: MILD DEGENERATIVE CHANGES OF THE HIPS WITHOUT ACUTE BONY PROCESS. MODERATELY SEVERE DEGENERATIVE CHANGES OF THE RIGHT KNEE WITHOUT ACUTE BONY PROCESS. Impression dictated by: Luis A Feliciano Jr., D.OOsmany06/06/2024 4:34 PM Dictation Location: [place] [address] Transcribed By: [facility] 06/06/24 1634 Dictated By: Luis A Feliciano Jr DO 06/06/24 1633 Signed By: 06/06/24 1634 Normal [facility] CT abdomen pelvis w conon CT abdomen pelvis w [facility] [address] [place] [address] CT Scan Report Signed Patient: Nia Calhoun MR#: [id number] : 1960 Acct:[id number] Age/Sex: 63 / F ADM Date: 08/03/23 Loc: CT Room: Type: [facility] Attending Dr: Venus Chen MD [...] Impression dictated by: Luis A Feliciano Jr., D.O.08/03/2023 4:01 PM Dictation Location: [place] [address] Transcribed By: [facility] 08/03/23 1601 Dictated By: Luis A Feliciano Jr, DO 08/03/23 1558 Signed By: 08/03/23 1601 Normal [facility] Basophils Auto (Bld) [#/Vol] on 07-30-2023 Basophils (Bld) [#/Vol] 0.1 10 3/uL 0.0-0.1 [facility] Basophils/100 WBC Auto (Bld) on 07-30-2023 Basophils/100 WBC (Bld) 0.6 % 0.2-2.0 [facility] Cholesterol in LDL Calc [Mas s/Vol]on 07-30-2023 Cholesterol in LDL [Mass/Vol] 132.0 mg/dL [facility] Comment on above: <100 mg/dl [id number] 0-129 mg/dl NEAR OR ABOVE [id number] mg/dl BORDERLINE [id number] mg/dl HIGH>190 mg/dl VERY HIGH Cholesterol in VLDL Calc [Ma ss/Vol]on 07-30-2023 Cholesterol in VLDL [Mass/Vol] 25.6 mg/dL [facility] Eosinophils/100 WBC Auto (Bl d)on 07-30-2023 Eosinophils/100 WBC (Bld) 3.0 % 0.9-7.0 [facility] Erythrocyte distribution wid th Auto (RBC) [Ratio]on 07-30-2023 Erythrocyte distribution width (RBC) [Ratio] 12.6 % 11.0-15.0 [facility] Estimated glomerular filtrat ion rate (GFR) non- Americanon 07-30-2023 GFR/1.73 sq M.predicted among non-blacks MDRD (S/P/Bld) [Vol rate/Area] mL/min/{1.73_m2} >=60 [facility] Globulin Calc (S) [Mass/Vol] on 07-30-2023 Globulin (S) [Mass/Vol] 4.1 g/dL [facility] Glucose mean value [Mass/vol ume] in Blood Estimated from glycated hemoglobinon 07-30-2023 Average glucose Estimated from glycated hemoglobin (Bld) [Mass/Vol] 151 mg/dL [facility] Hematocrit Auto (Bld) [Volum e fraction]on 07-30-2023 Hematocrit (Bld) [Volume fraction] 41.4 % 36.0-48.0 [facility] Hemoglobin [Mass/volume] in Bloodon 07-30-2023 Hemoglobin (Bld) [Mass/Vol] 12.9 g/dL 12.0-16.0 [facility] Laboratory - Chemistry and C hemistry - challengeon 07-30-2023 Albumin [Mass/Vol] 3.2 g/dL 3.4-5.0 [facility] ALP [Catalytic activity/Vol] 84 U/L 46-116 [facility] ALT [Catalytic activity/Vol] 29 U/L 14-59 [facility] AST [Catalytic activity/Vol] 15 U/L 15-37 [facility] Bilirubin [Mass/Vol] 0.4 mg/dL 0.2-1.0 [facility] Calcium [Mass/Vol] 8.4 mg/dL 8.5-10.1 [facility] Chloride [Moles/Vol] 104 mmol/L 98-107 [facility] Cholesterol [Mass/Vol] 218 mg/dL <=200 [facility] Cholesterol in HDL [Mass/Vol] 61 mg/dL 40-60 [facility] Comment on above: > or =60 mg/dl - LOW CARDIOVASCULAR RISK<40 mg/dl - HIGH CARDIOVASCULAR RISK CO2 [Moles/Vol] 27.7 mmol/L 21.0-32.0 [facility] Creatinine [Mass/Vol] 0.87 mg/dL 0.55-1.02 [facility] Free T4 [Mass/Vol] 1.05 ng/dL 0.76-1.46 [facility] GFR/1.73 sq M.predicted MDRD (S/P/Bld) [Vol rate/Area] mL/min/{1.73_m2} >=60 [facility] Glucose [Mass/Vol] 143 mg/dL 74-106 [facility] Potassium [Moles/Vol] 4.3 mmol/L 3.5-5.1 [facility] Protein [Mass/Vol] 7.3 g/dL 6.4-8.2 [facility] Sodium [Moles/Vol] 140 mmol/L 136-145 [facility] Triglyceride [Mass/Vol] 128 mg/dL <=150 [facility] TSH Qn 0.248 m[IU]/L 0.358-3.740 [facility] Urea nitrogen [Mass/Vol] 12.0 mg/dL 7.0-18.0 [facility] Urea nitrogen/Creatinine [Mass ratio] 13.8 mg/mg [facility] Laboratory - Hematology and Cell countson 07-30-2023 HbA1c (Bld) [Mass fraction] 6.9 % 4.5-6.2 [facility] Comment on above: ADA RECOMMENDED LIMI T 4.0 - 6.0ADA THERAPEUTIC TARGET < 7.0ACTION SUGGESTED> 7.0 Immature granulocytes/100 WBC (Bld) 0.3 % 0.0-0.5 [facility] Leukocytes [#/volume] correc cedrick for nucleated erythrocytes in Blood by Automated counon 07-30-2023 WBC corrected for nucl RBC Auto (Bld) [#/Vol] 10.7 10 3/uL 4.0-11.0 [facility] Lymphocytes Auto (Bld) [#/Vo l]on 07-30-2023 Lymphocytes (Bld) [#/Vol] 3.2 10 3/uL 1.2-3.8 [facility] Lymphocytes/100 WBC Auto (Bl d)on 07-30-2023 Lymphocytes/100 WBC (Bld) 29.6 % 20.5-60.0 [facility] MCH Auto (RBC) [Entitic mass ]on 07-30-2023 MCH (RBC) [Entitic mass] 27.4 pg 26.7-34.0 [facility] MCHC Auto (RBC) [Mass/Vol]on 07-30-2023 MCHC (RBC) [Mass/Vol] 31.2 g/dL 29.9-35.2 [facility] MCV Auto (RBC) [Entitic vol] on 07-30-2023 MCV (RBC) [Entitic vol] 87.9 fL 81.0-99.0 [facility] Microalbumin [Mass/volume] i n Urineon 07-30-2023 Albumin DL <= 20 mg/L (U) [Mass/Vol] mg/dL <=30.0 [facility] Monocytes Auto (Bld) [#/Vol] on 07-30-2023 Monocytes (Bld) [#/Vol] 0.6 10 3/uL 0.3-0.8 [facility] Monocytes/100 WBC Auto (Bld) on 07-30-2023 Monocytes/100 WBC (Bld) 5.9 % 1.7-12.0 [facility] Neutrophils Auto (Bld) [#/Vo l]on 07-30-2023 Neutrophils (Bld) [#/Vol] 6.5 10 3/uL 1.4-6.5 [facility] Neutrophils/100 WBC Auto (Bl d)on 07-30-2023 Neutrophils/100 WBC (Bld) 60.6 % 43.0-75.0 [facility] No Panel Informationon 07-29 Eosinophils # (Auto) 0.3 10 3/uL 0.0-0.7 [facility] Free Triiodothyronine 2.03 pg/mL 2.18-3.98 [facility] Immature Granulocyte # (Auto) 0.03 10 3/uL 0.00-0.03 [facility] Platelet mean volume Auto (B ld) [Entitic vol]on 07-30-2023 Platelet mean volume (Bld) [Entitic vol] 9.0 fL 9.5-13.5 [facility] Platelets Auto (Bld) [#/Vol] on 07-30-2023 Platelets (Bld) [#/Vol] 318 10 3/uL 150-450 [facility] RBC Auto (Bld) [#/Vol]on RBC (Bld) [#/Vol] 4.71 10 6/uL 4.20-5.40 [facility] Serum or plasma albumin/glob ulin mass ratioon 07-30-2023 Albumin/Globulin [Mass ratio] 0.8 {ratio} [facility] Serum or plasma anion gap de terminationon 07-30-2023 Anion gap [Moles/Vol] 12.6 mmol/L [facility] Serum or plasma thyroperoxid ase antibody assay (units/volume)on 07-30-2023 TPO Ab Qn [IU]/mL 0-34 [facility] Serum or plasma total choles terol/high density lipoprotein (HDL) cholesterol mass [place] 07-30-2023 Cholesterol.total/C holesterol in HDL [Mass ratio] 3.6 {ratio} [facility] Comment on above: 3.3 - 4.4 LOW RISK4. 4 - 7.1 AVERAGE RISK7.1 - 11.0 MODERATE RISK>11.0 HIGH RISK Thyroglobulin [Mass/volume] in Serum or Plasmaon 07-30-2023 Thyroglobulin [Mass/Vol] <1.0 [IU]/mL 0.0-0.9 [facility] Comment on above: Thyroglobulin Antibo dy measured by ConzoomMethodologyIt should be noted that the presence of thyroglobulinantibodies may not be pathogenic nor diagnostic, especiallyat very low levels. The assay senior lead project manager has found thatfour percent of individuals without evidence of thyroiddisease or autoimmunity will have positive TgAb levels upto 4 IU/mL.Performed at: [facility] [id number] Director: Chris Galicia PhD, Phone: [phone] Office Visiton 11-22-2022 Follow-up visit [id number] Nia Calhoun 1960 F Date Provider Department Center 11/22/2022 271-FABIOLA BLAKE [facility] Family History Problem Relation Age of Onset Coronary artery disease Father Arrhythmia Father Heart attack Father Coronary artery disease Sister Arrhythmia Brother Family Status - Relation Status Age at Father Sister Brother Level of Service:28321 [place] OFFICE/OUTPATIENT ESTABLISHED MOD MDM 30-39 MIN Normal [facility] Follow-Upon 09-06-2022 Follow-Up [id number] Nia Calhoun 1960 F Date Provider Department Center 09/06/2022 OXANA GRESHAM [facility] Family History Problem Relation Age of Onset Coronary artery disease Father Arrhythmia Father Heart attack Father Coronary artery disease Sister Arrhythmia Brother Family Status - Relation Status Age at Father Sister Brother Level of Service:80963 [place] OFFICE/OUTPATIENT ESTABLISHED MOD MDM 30-39 MIN Reason for Visit and Comments: Palpitations [[id number]] Normal [facility] GLYCOHEMOGLOBIN A1Con 2021 ADA RECOMMENDATION SEE BELOW Normal [facility] Comment on above: Result Comment: ADA RECOMMENDED LIMIT 4.0 - 6.0 ADA THERAPEUTIC TARGET < 7.0 ACTION SUGGESTED > 7.0 Performed By: #### A 1C #### [facility] [address] [place] [address] [address] Deborah Gustafson Glucose [Mass/Vol] 154 mg/dL Normal [facility] Comment on above: Performed By: #### A 1C #### [facility] [address] [place] [address] [address] Deborah Gustafson HbA1c (Bld) [Mass fraction] 7.0 % Critically high 4.5-6.2 [facility] Comment on above: Performed By: #### A 1C #### [facility] [address] [place] [address] [address] Deborah Gustafson LIPID PROFILEon 12-19-2021 CHOL-HDL RATIO NORM SEE BELOW Normal [facility] Comment on above: Result Comment: 3.3 - 4.4 LOW RISK 4.4 - 7.1 AVERAGE RISK 7.1 - 11.0 MODERATE RISK >11.0 HIGH RISK Performed By: #### T SH, CMP, LIPID #### [facility] [address] [place] [address] [address] Deborah Gustafson Cholesterol [Mass/Vol] 221 mg/dL Critically high <=200 [facility] Comment on above: Performed By: #### T SH, CMP, LIPID #### [facility] [address] [place] [address] [address] Deborah Gustafson Cholesterol in HDL [Mass/Vol] 63 mg/dL Critically high 40-60 [facility] Comment on above: Performed By: #### T SH, CMP, LIPID #### [facility] [address] [place] [address] [address] Deborah Gustafson Cholesterol in LDL [Mass/Vol] 137.6 mg/dL Normal [facility] Comment on above: Performed By: #### T LEYDA CMP, LIPID #### [facility] [address] [place] [address] [address] Deborah Gustafson Cholesterol.total/C holesterol in HDL [Mass ratio] 3.5 {ratio} Normal [facility] Comment on above: Performed By: #### T LEYDA, CMP, LIPID #### [facility] [address] [place] [address] [address] Deborah Gustafson HDL NORMAL > or = 60 mg/dl - LO W CARDIOVASCULAR RISK <40 mg/dl - HIGH CARDIOVASCULAR RISK Normal [facility] Comment on above: Performed By: #### T LEYDA CMP, LIPID #### [facility] [address] [place] [address] Dr. Deborah Gustafson LDL CALC NORMAL SEE BELOW Normal [facility] Comment on above: Result Comment: <100 mg/dl OPTIMAL 100 - 129 mg/dl NEAR OR ABOVE OPTIMAL 130 - 159 mg/dl BORDERLINE HIGH 160 - 189 mg/dl HIGH >190 mg/dl VERY HIGH Performed By: #### T LEYDA CMP, LIPID #### [facility] [address] [place] [address] Dr. Deborah Gustafson Triglyceride [Mass/Vol] 102 mg/dL Normal <=150 [facility] Comment on above: Performed By: #### T LEYDA CMP, LIPID #### [facility] [address] [place] [address] Dr. Deborah Gustafson VLDL CALC 20.4 mg/dL Normal [facility] Comment on above: Performed By: #### T LEYDA, CMP, LIPID #### [facility] [address] [place] [address] Dr. Deborah Gustafson PROF 14(COMP METB)on 022 Albumin [Mass/Vol] 3.5 g/dL Normal 3.4-5.0 [facility] Comment on above: Performed By: #### T LEYDA, CMP, LIPID #### [facility] [address] [place] [address] [address] Deborah Gustafson Albumin/Globulin [Mass ratio] 1.0 {ratio} Normal [facility] Comment on above: Performed By: #### T SH, CMP, LIPID #### [facility] [address] [place] [address] [address] Deborah Gustafson ALP [Catalytic activity/Vol] 83 U/L Normal 46-116 [facility] Comment on above: Performed By: #### T SH, CMP, LIPID #### [facility] [address] [place] [address] [address] Deborah Gustafson ALT [Catalytic activity/Vol] 32 U/L Normal 14-59 [facility] Comment on above: Performed By: #### T SH, CMP, LIPID #### [facility] [address] [place] [address] Dr. Deborah Gustafson Anion gap [Moles/Vol] 9.9 mmol/L Normal [facility] Comment on above: Performed By: #### T SH, CMP, LIPID #### [facility] [address] [place] [address] Dr. Deborah Gustafson AST [Catalytic activity/Vol] 15 U/L Normal 15-37 [facility] Comment on above: Performed By: #### T SH, CMP, LIPID #### [facility] [address] [place] [address] Dr. Deborah Gustafson Bilirubin [Mass/Vol] 0.4 mg/dL Normal 0.2-1.0 [facility] Comment on above: Performed By: #### T SH, CMP, LIPID #### [facility] [address] [place] [address] Dr. Deborah Gustafson Calcium [Mass/Vol] 8.8 mg/dL Normal 8.5-10.1 [facility] Comment on above: Performed By: #### T SH, CMP, LIPID #### [facility] [address] [place] [address] Dr. Deborah Gustafson Chloride [Moles/Vol] 104 mmol/L Normal 98-107 [facility] Comment on above: Performed By: #### T SH, CMP, LIPID #### [facility] [address] [address] [address] Deborah Gustafson CO2 [Moles/Vol] 31.3 mmol/L Normal 21.0-32.0 [facility] Comment on above: Performed By: #### T SH, CMP, LIPID #### [facility] [address] [place] [address] [address] Deborah Gustafson Creatinine [Mass/Vol] 0.86 mg/dL Normal 0.55-1.02 [facility] Comment on above: Performed By: #### T SH, CMP, LIPID #### [facility] [address] [address] [address] Deborah Gustafson EGFR-AF CITIZEN [place] >60 Normal >=60 [facility] Comment on above: Performed By: #### T SH, CMP, LIPID #### [facility] [address] [place] [address] [address] Deborah Gustafson EGFR-NON AF CITIZEN OF [place] >60 Normal >=60 [facility] Comment on above: Performed By: #### T SH, CMP, LIPID #### [facility] [address] [place] [address] [address] Deborah Gustafson Globulin (S) [Mass/Vol] 3.5 g/dL Normal [facility] Comment on above: Performed By: #### T SH, CMP, LIPID #### [facility] [address] [place] [address] [address] Deborah Gustafson Glucose [Mass/Vol] 124 mg/dL Critically high 74-106 [facility] Comment on above: Performed By: #### T SH, CMP, LIPID #### [facility] [address] [place] [address] [address] Deborah Gustafson Potassium [Moles/Vol] 4.2 mmol/L Normal 3.5-5.1 [facility] Comment on above: Performed By: #### T SH, CMP, LIPID #### [facility] [address] [place] [address] [address] Deborah Gustafson Protein [Mass/Vol] 7.0 g/dL Normal 6.4-8.2 [facility] Comment on above: Performed By: #### T SH, CMP, LIPID #### [facility] [address] [place] [address] [address] Deborah Gustafson Sodium [Moles/Vol] 141 mmol/L Normal 136-145 [facility] Comment on above: Performed By: #### T SH, CMP, LIPID #### [facility] [address] [place] [address] [address] Deborah Gustafson Urea nitrogen [Mass/Vol] 10.0 mg/dL Normal 7.0-18.0 [facility] Comment on above: Performed By: #### T SH, CMP, LIPID #### [facility] [address] [place] [address] [address] Deborah Gustafson Urea nitrogen/Creatinine [Mass ratio] 11.6 mg/mg Normal [facility] Comment on above: Performed By: #### T SH, CMP, LIPID #### [facility] [address] [place] [address] Dr. Deborah Gustafson TSHon 12-19-2021 TSH 0.428 uIU/mL Normal 0.358-3.740 [facility] Comment on above: Performed By: #### T SH, CMP, LIPID #### [facility] [address] [place] [address] Dr. Deborah Gustafson CNOVSPon 01-20-2021 [facility]IA [facility] ([id number]) 1960 F Date Time Provider Department 01/20/21 11:15 AM WALLACE LAUREANO During your visit today, we recorded the following information about you: Temperature Pulse Respiration Blood pressure 97.9 degrees 93/minute 18/minute 148/83 Weight Height 119.9 kg 1.675 m Wallace Laureano MD 01/22/2021 12:43 PM Signed PATIENT NAME: Nia Calhoun DATE: 01/20/2021 PRIMARY CARE PHYSICIAN: Venus Chen MD OTHER PHYSICIANS: Dr. Henry ([facility] in [place]) HPI: This is a 60 year old female self-referred for evaluation of abnormal labs (homozygous MTHFR mutation) detected on previous genetic analysis. 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 However, she subsequently underwent additional testing with [employer] [facility] and was found to have a homozygous MTHFR [id number] mutation. The patient has never had evidence [...] for nu (more content not included)... Normal [facility] Vital Signs Date Time Vital Sign Value Performing Clinician Facility 11-13-2024 [id number] Body height 162.56 cm Venus Chen MD Work Phone: [facility] 11-13-2024 11:04-0400 Body mass index (BMI) [Ratio] 42.9 kg/m2 Venus Chen MD Work Phone: [facility] 11-13-2024 11:04-0400 Body weight 113.39 kg Venus Chen MD Work Phone: [facility] 11-13-2024 11:04-0400 Diastolic blood pressure 77 mm[Hg] Venus Chen MD Work Phone: [facility] 11-13-2024 11:04-0400 Heart rate 98 /min Venus Chen MD Work Phone: [facility] 11-13-2024 11:04-0400 Systolic blood pressure 118 mm[Hg] Venus Chen MD Work Phone: [facility] 06-06-2024 14:05-0500 Body height 162.56 cm Venus Chen MD Work Phone: [facility] 06-06-2024 14:05-0500 Body mass index (BMI) [Ratio] 44.9 kg/m2 Venus Chen MD Work Phone: [facility] 06-06-2024 14:05-0500 Body weight 118.84 kg Venus Chen MD Work Phone: [facility] 05-10-2024 08:36-0500 Body height 163.83 cm Venus Chen MD Work Phone: [facility] 05-10-2024 08:36-0500 Diastolic blood pressure 72 mm[Hg] Venus Chen MD Work Phone: [facility] 05-10-2024 08:36-0500 Heart rate 91 /min Venus Chen MD Work Phone: [facility] 05-10-2024 08:36-0500 Systolic blood pressure 106 mm[Hg] Venus Chen MD Work Phone: [facility] 07-18-2023 14:01-0500 Body height 163.83 cm MD Venus Chen Work Phone: [facility] 07-18-2023 14:01-0500 Body mass index (BMI) [Ratio] 43.2 kg/m2 MD Venus Chen Work Phone: [facility] 07-18-2023 14:01-0500 Body weight 116.11 kg MD Venus Chen Work Phone: [facility] 07-18-2023 14:01-0500 Diastolic blood pressure 77 mm[Hg] MD Venus Chen Work Phone: [facility] 07-18-2023 14:01-0500 Heart rate 94 /min MD Venus Chen Work Phone: [facility] 07-18-2023 14:01-0500 Systolic blood pressure 119 mm[Hg] MD Venus Chen Work Phone: [facility] 09-02-2022 09:45-0400 Body height 163.83 cm Venus Chen Other [facility] Other 09-02-2022 09:45-0400 Diastolic blood pressure 80 mm[Hg] Venus Chen Other [facility] Other 09-02-2022 09:45-0400 SaO2% (BldA) [Mass fraction] 99 % Venus Chen Other [facility] Other 09-02-2022 09:45-0400 Systolic blood pressure 132 mm[Hg] Venus Chen Other [facility] Other 06-23-2022 09:45-0500 Body height 163.83 cm Venus Chen Other [facility] Other 06-23-2022 09:45-0500 Body mass index (BMI) [Ratio] 41.91 kg/m2 Venus Chen Other [facility] Other 06-23-2022 09:45-0500 Body weight 112.49 kg Venus Chen Other [facility] Other 06-23-2022 09:45-0500 Diastolic blood pressure 84 mm[Hg] Venus Chen Other [facility] Other 06-23-2022 09:45-0500 SaO2% (BldA) [Mass fraction] 96 % Venus Chen Other [facility] Other 06-23-2022 09:45-0500 Systolic blood pressure 130 mm[Hg] Venus Chen Other [facility] Other Encounters Encounter Date Encounter Type Care Provider Facility Start: 11-14-2024 ambulatory Venus Chen MD Work Phone: [facility] Work Phone: Start: 11-14-2024 Non-patient / Non-visit Venus velásquez MD -[facility] Work Phone: Start: 11-13-2024 End: 11-13-2024 Patient encounter procedure Venus Chen MD -[facility] Work Phone: Start: 09-10-2024 End: 09-10-2024 ambulatory VENUS CHEN Facility:[facility] Start: 09-10-2024 End: 09-10-2024 Patient encounter procedure SELF REFERRAL [facility] Start: 06-06-2024 End: 06-06-2024 Patient encounter procedure Venus Chen MD Work Phone: [facility] Work Phone: Start: 06-06-2024 End: 06-06-2024 Patient encounter procedure Venus Chen MD Work Phone: [facility] Start: 06-06-2024 End: 06-06-2024 ambulatory Venus Chen MD Work Phone: [facility] Work Phone: Start: 05-10-2024 End: 05-10-2024 Patient encounter procedure Venus Chen MD Work Phone: [facility] Phys[facility] Work Phone: Start: 11-08-2023 End: 11-08-2023 Evaluation and management of inpatient LIBBY TO [facility] Start: 11-07-2023 End: 11-08-2023 Evaluation and management of inpatient JO-ANN CUELLAR [facility] Start: 10-31-2023 End: 10-31-2023 ambulatory VENUS CHEN [facility] Start: 10-11-2023 End: 10-11-2023 ambulatory RUDDY Dianna SIMMONS [facility] Ambulatory [facility] Start: 08-03-2023 End: 08-03-2023 Patient encounter procedure MD Venus Chen Work Phone: [facility] Work Phone: Start: 08-03-2023 End: 08-03-2023 ambulatory MD Venus Chen Work Phone: [facility] Work Phone: Start: 07-30-2023 Non-patient / Non-visit MD Martha Chen Work Phone: [facility] Physician [facility] Work Phone: Start: 07-18-2023 End: 07-18-2023 Patient encounter procedure MD Venus Chen Work Phone: [facility] Physician [facility] Work Phone: Start: 04-11-2023 End: 04-11-2023 ambulatory Venus Chen Other [facility] [employer] Other Start: 04-11-2023 Telephone encounter Venus VERGARA [facility] Start: 01-21-2023 End: 01-21-2023 ambulatory Venus Chen Other [facility] Other Start: 01-21-2023 Telephone encounter Venus Chen [facility] Start: 01-10-2023 End: 01-10-2023 ambulatory Venus Chen Other [facility] Other Start: 01-10-2023 Telephone encounter Venus Chen [facility] Start: 11-22-2022 End: 11-22-[address] [facility] Start: 09-06-2022 End: 09-07-2022 ambulatory OXANA [facility] Start: 09-02-2022 End: 09-02-2022 ambulatory Venus Chen Other [facility] Other Start: 09-02-2022 Office outpatient vi sit 15 minutes Venus Chen [facility] Start: 07-15-2022 End: 07-15-2022 ambulatory Venus Chen Other [facility] Other Start: 07-15-2022 Telephone encounter Venus Chen [facility] Start: 06-23-2022 End: 06-23-2022 ambulatory Venus Chen Other [facility] Other Start: 06-23-2022 Office outpatient vi sit 15 minutes Venus Chen [facility] Start: 06-07-2022 Annual wellness visit Venus duarte Other [facility] Other Start: 03-10-2022 End: 03-10-2022 Patient encounter procedure VENUS CHEN [facility] Start: 12-19-2021 End: 12-20-[address] VENUS CHEN Facility: Start: 10-03-2020 Adult health examination Venus Chen Other [facility] Other Procedures Date Procedure Procedure Detail Performing Clinician Start: 06-06-2024 Plain radiography of pelvis Venus Chen MD Work Phone: Start: 06-06-2024 X-ray of right knee, four views Venus Chen MD Work Phone: Start: 08-03-2023 Computed tomography of abdomen and pelvis with contrast MD Venus Chen Work Phone: Start: 08-05-2017 Screening for malign ant neoplasm of colon Venus Chen Other Start: 07-05-2014 Screening mammography Parvin mckee Frances Other Start: 06-25-2013 Pre-surgery evaluation Venus Chen Other Start: 04-25-2013 General examination of patient Venus Chen Other Screening procedure Venus duarte Other Plan of Treatment Date Care Activity Detail Author Start: 11-14-2024 Patient referral [facility] Work Phone: Comprehensive metabo lic 2000 panel - Serum or Plasma [facility] Patient Education Low back pain in adults [facility] Work Phone: Patient referral [facility] Work Phone: XR Knee - right 4 Views [facility] Immunizations Immunization Date Immunization Notes Care Provider Fa cili 02-09-2023 influenza, injectabl e, quadrivalent, preservative free Venus Chen Other [facility] 01-27-2022 influenza virus vaccine, split virus (incl. purified surface antigen) Venus Chen Other [facility] Other 01-27-2022 influenza virus vaccine, unspecified formulation MD Venus Chen Work Phone: [facility] 04-26-2021 COVID-19 Vaccine Pfi zer - Documentation Purposes Only Venus Chen Other [facility] 02-24-2021 influenza virus vaccine, split virus (incl. purified surface antigen) Venus Chen Other [facility] Other 02-24-2021 influenza virus vaccine, unspecified formulation MD Venus Chen Work Phone: [facility] 09-03-2020 SARS-CoV-2 (COVID-19 ) mRNA BNT-162b2 vax SELF REFERRAL [facility] 08-19-2020 SARS-CoV-2 (COVID-19 ) mRNA BNT-162b2 vax SELF REFERRAL [facility] 08-11-2020 SARS-CoV-2 (COVID-19 ) mRNA BNT-162b2 vax SELF REFERRAL [facility] 07-29-2020 SARS-CoV-2 (COVID-19 ) mRNA BNT-162b2 vax SELF REFERRAL [facility] 01-22-2020 influenza virus vaccine, split virus (incl. purified surface antigen) Venus Chen Other [facility] Other 01-22-2020 influenza virus vaccine, unspecified formulation MD Venus Chen Work Phone: [facility] 02-19-2019 influenza virus vaccine, split virus (incl. purified surface antigen) Venus Chen Other [facility] Other 02-19-2019 influenza virus vaccine, unspecified formulation MD Venus Chen Work Phone: [facility] 03-01-2018 influenza virus vaccine, split virus (incl. purified surface antigen) Venus Chen Other [facility] Other 03-01-2018 influenza virus vaccine, unspecified formulation MD Venus Chen Work Phone: [facility] 03-17-2017 influenza virus vaccine, unspecified formulation SELF REFERRAL [facility] 03-17-2017 tetanus and diphther ia toxoids, adsorbed, preservative free, for adult use (5 Lf of tetanus toxoid and 2 Lf of diphtheria toxoid) Venus Chen Other [facility] 01-22-2015 tetanus and diphther ia toxoids, adsorbed, preservative free, for adult use (5 Lf of tetanus toxoid and 2 Lf of diphtheria toxoid) Venus Chen Other [facility] 03-13-2014 tetanus and diphther ia toxoids, adsorbed, preservative free, for adult use (5 Lf of tetanus toxoid and 2 Lf of diphtheria toxoid) Venus Chen Other [facility] 11-20-2012 tetanus toxoid, redu sasha diphtheria toxoid, and acellular pertussis vaccine, adsorbed SELF REFERRAL [facility] Payers Date Payer Category Payer Private Health Insurance [facility] [id number] 1960 Unknown [id number] 1960 Unknown [id number] 6 1962 Unknown [id number] 6 1962 Unknown [id number] 6 1962 Unknown [id number] 6 1962 Unknown [id number] 6 1962 Unknown [id number] 6 1962 Unknown [id number] 1959 Private Health Insurance [id number] Private Health Insurance [facility] [id number] Social History Date Type Detail Facility Tobacco smoking status [facility] Sex Assigned At Female [facility] Start: 09-02-2022 End: 02-16-2024 Tobacco smoking status NHIS Never smoked tobacco (finding) [facility] Start: 1960 Sex Assigned At Female F [facility] Start: 06-07-2024 Sex Patient sex un known (finding) [facility] Tobacco smoking status Never [facility] Start: 12-13-2014 Sex Female (finding) [facility] Clinical Notes 01-20-2021 to 11-13-2024 Note Date & Type Note Facility 11-13-2024 Chief complaint+R sherron for visit Narrative back pain November 13, 2024 10:5 5am Referral Order November 14, 2024 8:29 am Reason for Visit Admit Date Arthralgia November 13, 2024 10:5 5am Hypothyroidism November 13, 2024 10:5 5am Left knee pain November 13, 2024 10:5 5am Left-sided low back pain with left-sided sciatica November 13, 2024 10:55am [facility] Work Phone: 1(398) 247-796606-24-2025 Evaluation note* Diagnosis Onset Date Resolution Status Admit Date Arthralgia acute November 13 10:55am Hypothyroidism acute November 13, 2024 10:55am Left knee pain acute November 13, 2024 10:55am Left-sided low back pain wit h left-sided sciatica acute November 13, 2 025 10:55am [facility] Work Phone: 1(417) 443-463312-19-2024 Evaluation note* Diagnosis Onset Date Resolution Status Admit Date Acute pain of right knee acute May 10, 2024 8:32am Insomnia acute May 10, 2024 8:32am Primary osteoarthritis of ri ght knee acute June 06 1:50pm [facility] Work Phone: 1(579) 632-465207-03-2023 [facility] Chief Complaint: Patient here for 3 mo follow up palpitations, SVT, and diastolic dysfunction. She did not have echo done that was ordered at last apt in August 2022. Says she is not having as many palpitations as before. Her communications writer told her she would have some symptoms [...] a past medical history of Diabetes mellitus ([facility]), Fibromyalgia, Hyperlipidemia, Hypothyroidism, Peripheral venous insufficiency, and [...] the absence of structu (more content not included)...[facility]04-17-2023 NotePatient here c/o annoying palpitations per Dr. Chen. [...] breath. All other systems reviewed and are negative.[facility] 09-06-2022 [facility]Cardiovascular Medicine [facility] SUBJECTIVE Chief Complaint Patient presents with [...] glargine (Lantus) 100 unit/mL (3 mL) pen, Terra KwikPen U-100 Insulin 100 unit/mL (3 mL) [...] Comments Biphasic Doppler w (more content not included)...[facility]04-13-2023 Evaluation note* Encounter Date Diagnosis Assessment Notes Treatment Notes Treatment Clinical Notes Aug, Left foot pain (ICD-10 - M79.672) Advised continue soaking w warm water. Do not squeeze or stick area w needle. Small FB should work its way out. Aug, Palpitations (ICD-10 - R00.2) Pt has had problems for several years. Had holter. Has thyroid adjustment from her specialist. Requests referral to Dr. Blake. [facility] Other 02-01-2023 Evaluation note* Encounter Date Diagnosis [...] K63.89) Patient will schedule follow-up with gastroenterology [facility] Other 08-31-2021 NoteHNO ID: [id number] Author: Wallace Laureano MD Service: ? Author Type: Physician Type: Progress Notes Filed: 01/22/2021 12:43 PM Note Text: PATIENT NAME: Nia Calhoun DATE: 01/20/2021 PRIMARY CARE PHYSICIAN: Venus Chen MD OTHER PHYSICIANS: Dr. Henry ([facility] in [place]) HPI: This is a 60 year old female self-referred for evaluation of abnormal labs (homozygous MTHFR mutation) detected on previous genetic analysis. Apparently the patient underwent genetic testing with [employer] in 2012, and was found to have multiple heterozygous mutations of no clinical significance. However, she subsequently underwent additional testing with [employer] [facility] and was found to have a homozygous MTHFR [id number] mutation. The patient has never had evidence [...] rash, itching, pallor, or (more content not included)...[facility] note No data available for this section [facility] noteNo InformationNortGeising[facility] Other Evaluation note* Diagnosis Onset Date Resolution Status Hypothyroidism acute Right sided abdominal pain a cute Type 2 diabetes mellitus with hyperglycemia acute [facility] Work Phone: History general Narrative - Reported* Type Description Date Medical History Paronychia of toe Medical History Intermittent palpitations Medical History Hypothyroidism Medical History Diastolic blood pressure 90 mm H g or higher Medical History Essential hypertension Medical History Hyperglycemia due to type 2 diab etes mellitus Medical History Fibromyalgia Medical History Small intestinal bacterial overg [facility] Medical History Screening for condition Medical History Cellulitis of right foot Medical History Pain, joint, knee, right Medical History Claudication Medical History Changing skin lesion Medical History Yeast infection Medical History Breast abscess Medical History Insomnia, persistent Medical History Anxiety and depression Medical History Wellness examination Surgical History COLONOSCOPY 2009 Surgical History GRILLIS VAG HYST 2006 Surgical History BSO 2006 Surgical History THYROIDECTOMY 2010 Surgical History PARTIAL THYROID LOBECTOMY 2003 Surgical History EGD 04/2018 Surgical History CHOLECYSTECTOMY 01/2016 Hospitalization History SEE SURGICAL HX [facility] Other Hospital Discharge instructions No data available for this section [facility] instructionsAmbulatory Orders* Referral to Rheumatology Time Frame: 11/14/24, Location: None Selected [facility] Work Phone: Progress note No data available for this section [facility] Summary Purpose Family History Relationship Condition Age at Onset Recorded Date/T christiano father Heart disease Unknown Unknown Not Specified Unknown sister Malignant neoplasm Unknown Relationship Condition Age at Onset Recorded Date/T christiano father Heart disease Unknown Unknown mother Unknown sister Malignant neoplasm Unknown Advance Directives Advance Directive Response Recorded Date/ Time Advance Directives No June 10:18am Advance Directive Response Recorded Date/ Time Advance Directives No June 9:18am Reason for Referral Reason *FU 09/09 Palpitat ions that occur nightly. Diagnosis 1 Palpitations (R00.2) Referral Organization [facility] Referring Provider First Name Venus Referring Provider Last Name Frances Referring Provider Specialty Family [facility] Referred Organization [facility] Referred Provider Fabiola Blake Referred Address [address], [place],[address] Referred Provider Specialty Cardiology Referral Priority Routine General Notes Geena Henry 03:42:59 PM >received today, notes locked, insurance card attached, referral faxed Clinical Notes F: [id number] Chief Complaint and Reason for Visit Chief Complaint BS Discussion E11.65 E03.9 R10.9 Reason for Visit Hypothyroidism Right sided abdominal pain Type 2 diabetes mellitus with hyperglycemia Chief Complaint Admit Date right knee injury May 10, 2024 8:32am M25.561 - Pain in right knee May 7:42am CONSULT DR. VENUS CHEN RT KNEE PAIN, W X June 06, 2024 1:50pm Reason for Visit Admit Date Acute pain of right knee May 10, 2024 8:32am Insomnia May 10, 2024 8:32am Primary osteoarthritis of right knee Crispin johnson 2024 1:50pm Additional Source Comments INFORMATION SOURCE (unrecogn ized section and content) DATE CREATED AUTHOR 06/17/2021 [facility] DATE CREATED AUTHOR AUTHOR'S ORGANIZ ATION 10/29/2022 [facility] DATE CREATED AUTHOR AUTHOR'S ORGANIZ ATION 11/22/2022 [facility] DATE CREATED AUTHOR AUTHOR'S ORGANIZ ATION 10/13/2023 [facility] DATE CREATED AUTHOR AUTHOR'S ORGANIZ ATION 11/09/2023 [facility] DATE CREATED AUTHOR AUTHOR'S ORGANIZ ATION 06/09/2024 [facility] DATE CREATED AUTHOR AUTHOR'S ORGANIZ ATION 09/20/2024 [facility] Patient Care team informatio n (unrecognized [...] August 03, 2023 End: August 03, 2023 Team Status: Inactive Member Role Status Dates Venus Chen MD Primary Care Provide r, Attending Provider Active Start: May 10, 2024 End: May 10, 2024 Team Status: Inactive Member Role Status Dates Venus Chen MD Primary Care Provider Active Start: June 06, 2024 End: June 06, 2024 Los Cam II, MD Attending Provider Active Start: June 06, 2024 End: June 06, 2024 Team Status: Inactive Member Role Status Dates Venus Chen MD Primary Care Provider Active Start: November 13, 2024 End: November 13, 2024 Venus Chen MD Attending Provider Active St art: November 13, 2024 End: November 13, 2024 Team Status: Active Member Role Status Dates Venus Chen MD Primary Care Provider Active Start: November 14, 2024 Venus Chen MD Attending Provider Active St art: November 14, 2024 REASON FOR VISIT (unrecogniz ed section and [...] BE BASED ON THE PRIMARY CLINICAL RECORDS. [facility] [employer] [facility]. provides no warranty or guarantee of the accuracy or completeness of information in this document.
[2024-11-17 10:22] LABS: Basophils Absolute Auto 0.1 10^3/uL (0.0-0.1); Basophils Percent Auto 0.7 % (0.2-2.0); Eosinophils Absolute Auto 0.2 10^3/uL (0.0-0.7); Eosinophils Percent Auto 1.6 % (0.9-7.0); Hematocrit 43.2 % (36.0-48.0); Hemoglobin 13.9 g/dL (12.0-16.0); Immature Granulocytes Abs Auto 0.02 10^3/uL (0.00-0.03); Immature Granulocytes Pct Auto 0.2 % (0.0-0.5); Lymphocytes Absolute Auto 2.8 10^3/uL (1.2-3.8); Lymphocytes Percent Auto 28.7 % (20.5-60.0); Mean Corpuscular HGB Conc 32.2 g/dL (29.9-35.2); Mean Corpuscular Hemoglobin 27.1 pg (26.7-34.0); Mean Corpuscular Volume 84.2 fL (81.0-99.0); Mean Platelet Volume 8.8 fL (9.5-13.5); Monocytes Absolute Auto 0.6 10^3/uL (0.3-0.8); Monocytes Percent Auto 5.6 % (1.7-12.0); Neutrophils Absolute Auto 6.2 10^3/uL (1.4-6.5); Neutrophils Percent Auto 63.2 % (43.0-75.0); Platelet Count 297 10^3/uL (150-450); Red Blood Count 5.13 10^6/uL (4.20-5.40); Red Cell Distribution Width 12.6 % (11.0-15.0); White Blood Count 9.9 10^3/uL (4.0-11.0)
[2024-11-17 10:48] LABS: Erythrocyte Sedimentation Rate 27 mm/hr (<=30)
[2024-11-18 11:10] LABS: PTH, Intact 53 pg/mL (15-65)
== END 2024-11-17 09:48 | disposition home or self-care (01) ==
LOC: LAB 09:48
PROVIDERS: Visit Provider Family Medicine
DX: M25.50 Pain in unspecified joint (principal); I10 Essential (primary) hypertension; E89.0 Postprocedural hypothyroidism
CPT/HCPCS: 36415; 82306; 83970; 85025; 85652

== ENCOUNTER 2024-11-17 09:49 | Outpatient (OUT) | payer OTHER, SELFPAY ==
--- OUTSIDE RECORDS SUMMARY | 2024-06-15 09:26 | XMS_ITS ---
Author Organization Corporate Office Address [address] [place] [address] [address] [facility] [place] [address] Care Team Providers Care Billboard Installer Name Role Phone Venus Daniels Primary Care Provider Yoko Corona NP, Marta Unavailable Delisa Holman DO Unavailable REASON FOR VISIT mounjaro Medications Medication SIG (Take, Route, Fr equency, Duration) Notes Start Date End Date Status Mounjaro 5 MG/0.5ML as directed Subcutan eous weekly for 90 days 03/14/2024 Active Encounters Encounter Location Date Provider Diagnosis 06 [facility] Center Endocrinology [address] [place] [address] 06/15/2024 Delisa Holman Type 2 diabetes mellitus E11.9 Assessments Encounter Date Diagnosis (ICD Code) Assessment Notes Treatment Notes Treatment Clinical Notes Section Notes 06/15/2024 Type 2 diabetes mellitus (ICD-10 - E11.9) Plan Of Treatment Medication Medication Name Sig Start Date Stop Date Notes Mounjaro 5 MG/0.5ML as directed Subcutan eous weekly for 90 days 03/14/2024 Next Appt Details Provider Name:Delisa bauer, 03/19/2025 03:00:00 PM, [address], [place], [address], Progress Notes * Nik CALHOUNB:1960 ([age] yo F)Acc No.[id number]:06/15/2024 Patient: Willa NASH :1960 A ge:64 Y S ex:Female Address:[address] [place] [address], [address] * Refills Refill Mounjaro Solution Pen-injector, 5 MG/0.5ML, Subcutaneous, 6 Milliliter, as directed, weekly, 90 days, Refills=3 * true * Date: Generated for Babar tao/Caleb/Hernanitting on: 0 11/17/2024 09:50 AM EDT
--- OUTSIDE RECORDS SUMMARY | 2024-09-12 09:40 | XMS_ITS ---
Author Organization Corporate Office Address [address] [place] [address] [address] [facility] [place] [address] Care Team Providers Care Manager Traffic Name Role Phone Venus Daniels Primary Care Provider Yoko Corona NP, Marta Unavailable Delisa Holman DO Unavailable Allergies Allergen (clinical drug ingredient) Drug/Non Drug Allergy documented on EMR Reaction Allergy Type Onset Date Status thyroid (JAIL) [place] Thyroid Unknown Drug Allergy Active aspirin Aspirin Unknown Drug Allergy Active ibuprofen Ibuprofen Unknown Drug Allergy Active Keflex Unknown Drug Allergy Active Levaquin Unknown Drug Allergy Active thyroid (JAIL) Nature-Throid Unknown Drug Allergy Active Thyrolar-1 Unknown Drug Allergy Active codeine Codeine Unknown Drug Allergy Active tape Unknown Allergy Active penicillin Unknown Drug Allergy Active REASON FOR VISIT 6 mo f/u DM2, Pt last A1C was 7.7 on 08/15/2024, Pt BG logs/didn't bring meter 120-145/150, Pt refills yes Medications Medication SIG (Take, Route, Frequency, Duration) Notes Start Date End Date Status metFORMIN HCl ER 500 MG 1 tablet with evening meal Orally twice a day for 90 days Not-Taking Tirosint 125 MCG 1 capsule in the morning on an empty stomach Orally Once a day for 90 days will start when gets medicine at pharmacy Not-Taking Ozempic (0.25 or 0.5 MG/DOSE) 2 MG/1.5ML 0.5 mg Subcutaneous once a week for 30 days 09/06/2022 Not-Taking Ozempic (1 MG/DOSE) 4 MG/3ML as directed Subcutaneous weekly for 90 days 06/08/2023 Not-Taking Mounjaro 2.5 MG/0.5ML INJECT 1 PEN SUBCUTANEOUSLY ONCE A WEEK for 28 Not-Taking Basaglar KwikPen 100 UNIT/ML 14 units Subcutaneous once at bedtime for 90 days Not-Taking Vitamin D 50 MCG (1999 UT) 3 tablets Orally Once a day Active Ambien 5 MG 1 tablet at bedtime as needed Orally Once a day Not-Taking Pen [place] 5/16 31G X 8 MM as directed once a day for 90 days 04/11/2020 Active Tirosint 125 MCG 1 capsule in the morning on an empty stomach Orally Once a day for 90 days Active Effexor XR 150 MG 1 capsule with food Orally Once a day Active Multivitamin Adults - as directed Orally Active Lantus SoloStar 100 UNIT/ML 12-14 Subcutaneous daily evening for 90 days Active Melatonin 3 MG 1 tablet at bedtime as needed Orally Once a day Active FreeStyle Anthony 3 Sensor - as directed for 90 days 03/14/2024 Active Cytomel 5 MCG TAKE 1 TABLET BY MOUTH DAILY ON AN EMPTY STOMACH Orally Once a day for 90 days Active B12 Folate 800-800 MCG as directed Orally Active Mounjaro 7.5 MG/0.5ML as directed Subcutaneous weekly for 90 days 03/14/2024 Active Vital Signs Blood pressure systolic 116 mm Hg 09/13/19 25 Blood pressure diastolic 80 mm Hg 025 Height 65 in 09/12/2024 Weight 260.5 lbs 09/12/2024 BMI 43.34 kg/m2 09/12/2024 Weight-kg 118.16 kg 09/12/2024 Height-cm 165.1 cm 09/12/2024 Encounters Encounter Location Date Provider Diagnosis 06 [facility] Center Endocrinology [address] [place] [address] 09/12/2024 Delisa Holman Type 2 diabetes mellitus E11.9 ; Hyperlipidemia E78.5 ; Morbid obesity E66.01 ; History of thyroid cancer Z85.850 and Autoimmune thyroiditis E06.3 Assessments Encounter Date Diagnosis (ICD Code) Assessment Notes Treatment Notes Treatment Clinical Notes Section Notes 09/12/2024 Type 2 diabetes mellitus (ICD-10 - E11.9) Will try to increase Mounjaro If get Lantus dose <10 units could try stopping Discussed nutrition and exercise 09/12/2024 Hyperlipidemia (ICD-10 - E78.5) 09/12/2024 Morbid obesity (ICD-10 - E66.01) 09/12/2024 History of thyroid cancer (ICD-10 - Z85.850) TG undetectable 09/12/2024 Autoimmune thyroiditis (ICD-10 - E06.3) Plan Of Treatment Medication Medication Name Sig Start Date Stop Date Notes Mounjaro 7.5 MG/0.5ML as directed Subcut aneous weekly for 90 days 03/14/2024 Treatment Notes Assessment Notes Type 2 diabetes mellitus Will try to increase Mounjaro If get Lantus dose <10 units could try stopping History of thyroid cancer TG undetectabl e Future Test Test Name Order Date TSH (Thyroid Stimulating Hormone) 2024 CMP 03/14/2025 Hemoglobin A1C 03/14/2025 Next Appt Details Follow Up: 6 Months, Reason: Provider Name:Delisa bauer, 03/19/2025 03:00:00 PM, [address] , [place], [address], Progress Notes * Nik CALHOUNB:1960 ([age] yo F)Acc No.[id number]:09/12/2024 Progress Notes Patient: Willa NASH Provider: Marcos Holman DO Case Label: Date Of Injury: :1960 A ge:64 Y S ex:Female Date:09/12/2024 Address:[address] [place], [place] [id number] Pcp:Venus Daniels Subjective: * Chief Complaints: * 6 mo f/u DM2Pt last A1C was 7.7 on 08/15/2024Pt BG logs/didn't bring meter 120-145/150Pt refills yes * HPI: I nitial Visit: Pt previously seen by me at [facility]. Pt 2003 had partial thyroidectomy. In 07/03 had completion since FNA questionable. After surgery was on T4 and fluid - once on T3 better. FOLLOW UP Like Pebbles but no weight loss Sugar control good No palpitations No cardiac, GI or resp sx. * ROS: G eneral/Constitutional: General g ood appetite, able to do usual activities. ? H EENT/Neck: Eyes n ormal vision, no irritation. N claudia n o lumps, no enlarged lymph nodes, no goiter, no neck stiffness or pain, no neck stiffness or pain. ? E ndocrine: Feels cold d enies. H air loss d enies. T iredness f eels tired all day. E xcessive sweating d enies. H eat intolerance: d enies. P oor libido d enies. R espiratory: Shortness of breath: d enies. C ardiovascular: Palpitations d enies. G astrointestinal: Bloating d enies. C hange in bowel habits d enies.? W omen Only: Amenorrhea d enies. I rregular menses y es. ? S kin: General c hanges in hair or nails. N eurologic: Tremor: d enies. R emainder of ROS is non contributory. * Medical History: * Surgical History: p artial thyroidectomy 2003completion of thyroidectomy 2005BSO- laparoscopic 2007cholecystectomy 06/2013colonoscopy with polyp resection 11/16/2017 * Hospitalization/Major Diagno stic Procedure: T [facility] 2006thyroidectomy 2010 * Family History: F ather: , HTN, heart disease, thyroid, diagnosed with Unspecified heart disease. M other: alive, arthritis. S iblings: alive, thryoid disease, arthritis....CFS, FM, melanoma, mestatic cancer. P aternal Grand Father: . P aternal Grand Mother: . M aternal Grand Father: . M aternal Grand Mother: . S on(s): alive, healthy. D aughter(s): alive, thyroid, Arnold Chiari, POTS. P aternal uncle: cancer-kidney and prostate, diagnosed with Other malignant neoplasm of unspecified site. P aternal aunt: lupus, autoimmune, kidney cancer, diagnosed with Other malignant neoplasm of unspecified site. M aternal uncle: cancer-lymphoma,, diagnosed with Other malignant neoplasm of unspecified site. * Social History: T obacco Use: S moking A re you a: Never Smoker. M iscellaneous 2: * Tobacco Use: no. *Alcohol Use: no. *Drug Use: no. *Caffeine Use: yes, servings per day:3. * Medications: T [id number] Folate 800-800 MCG Capsule as directed Orally Cytomel 5 MCG Tablet TAKE 1 TABLET BY MOUTH DAILY ON AN EMPTY STOMACH Orally Once a day Effexor XR 150 MG Capsule Extended Release 24 Hour 1 capsule with food Orally Once a day FreeStyle Anthony 3 Sensor - Miscellaneous as directed Lantus SoloStar 100 UNIT/ML Solution Pen- injector 12-14 Subcutaneous daily evening Melatonin 3 MG Tablet 1 tablet at bedtime as needed Orally Once a day Mounjaro 5 MG/0.5ML Solution Pen-injector as directed Subcutaneous weekly Multivitamin Adults - Tablet as directed Orally Pen [place] 5/16 31G X 8 MM Miscellaneous as directed once a day Tirosint 125 MCG Capsule 1 capsule in the morning on an empty stomach Orally Once a day Vitamin D 50 MCG (1999) Tablet 3 tablets Orally Once a day Taking B12 Folate 800-800 MCG Capsule as directed Orally Taking Cytomel 5 MCG Tablet TAKE 1 TABLET BY MOUTH DAILY ON AN EMPTY STOMACH Orally Once a day Taking Effexor XR 150 MG Capsule Extended Release 24 Hour 1 capsule with food Orally Once a day Taking FreeStyle Anthony 3 Sensor - Miscellaneous as directed Taking Lantus SoloStar 100 UNIT/ML Solution Pen-injector 12-14 Subcutaneous daily evening Taking Melatonin 3 MG Tablet 1 tablet at bedtime as needed Orally Once a day Taking Mounjaro 5 MG/0.5ML Solution Pen-injector as directed Subcutaneous weekly Taking Multivitamin Adults - Tablet as directed Orally Taking Pen [place] 5/16 31G X 8 MM Miscellaneous as directed once a day Taking Tirosint 125 MCG Capsule 1 capsule in the morning on an empty stomach Orally Once a day Taking Vitamin D 50 MCG (1999) Tablet 3 tablets Orally Once a day Not-Taking/PRNAmbien 5 MG Tablet 1 tablet at bedtime as needed Orally Once a day Basaglar KwikPen 100 UNIT/ML Solution Pen-injector 14 units Subcutaneous once at bedtime metFORMIN HCl ER 500 MG Tablet Extended Release 24 Hour 1 tablet with evening meal Orally twice a day Mounjaro 2.5 MG/0.5ML Solution Pen-injector INJECT 1 PEN SUBCUTANEOUSLY ONCE A WEEK Ozempic (0.25 or 0.5 MG/DOSE) 2 MG/1.5ML Solution Pen-injector 0.5 mg Subcutaneous once a week Ozempic (1 MG/DOSE) 4 MG/3ML Solution Pen-injector as directed Subcutaneous weekly Tirosint 125 MCG Capsule 1 capsule in the morning on an empty stomach Orally Once a day , Notes to Pharmacist: will start when gets medicine at pharmacyMedication List reviewed and reconciled with the patientNot-Taking/PRN Ambien 5 MG Tablet 1 tablet at bedtime as needed Orally Once a day Not-Taking/PRN Basaglar KwikPen 100 UNIT/ML Solution Pen-injector 14 units Subcutaneous once at bedtime Not-Taking/PRN metFORMIN HCl ER 500 MG Tablet Extended Release 24 Hour 1 tablet with evening meal Orally twice a day Not-Taking/PRN Mounjaro 2.5 MG/0.5ML Solution Pen-injector INJECT 1 PEN SUBCUTANEOUSLY ONCE A WEEK Not-Taking/PRN Ozempic (0.25 or 0.5 MG/DOSE) 2 MG/1.5ML Solution Pen-injector 0.5 mg Subcutaneous once a week Not-Taking/PRN Ozempic (1 MG/DOSE) 4 MG/3ML Solution Pen-injector as directed Subcutaneous weekly Not-Taking/PRN Tirosint 125 MCG Capsule 1 capsule in the morning on an empty stomach Orally Once a day , Notes to Pharmacist: will start when gets medicine at pharmacyMedication List reviewed and reconciled with the patient * Allergies: p enicillinAspirinCodeineLevaquinKeflextapeArmour OgrodasWqjaek-QlsnqdHhfhqehw-[id number][Allergies Verified] Objective: * Vitals: H t: 65 in, Wt: 260.5 lbs, BMI:43.34, BP:116/80, Pulse sittin, Ht-cm: 165.1, Wt-k.16. * Physical Examination: A BDOMEN: Bowel sounds: n ormal. G eneral: s oft, normal.?Rebound tenderness: a bsent. C HEST: Breath sounds: n ormal. W heezes: n one. D ERMATOLOGY: Skin: w arm, moist, No rash, normal. E XTREMITIES: Edema: n one. G ENERAL: Build: n ormal . G eneral Appearance: w ell-appearing, no acute distress. H eart: Rate: r egular. R hythm: r egular. H EENT: Eyes: u nremarkable. N claudia: Thyroid: n o palpable thyroid. N EUROLOGICAL: Reflexes: n ormal. * Tremor: n one. Assessment: * Assessment: 1. T ype 2 diabetes mellitus - E11.9 (Primary) 2 . H yperlipidemia - E78.5? 3. M orbid obesity - E66.01 4 . H istory of thyroid cancer - Z85.850 5 . A utoimmune thyroiditis - E06.3 Plan: * Treatment: 2. H istory of thyroid cancer Notes: TG undetectable * Procedure Codes: * Follow Up: 6 Months * Care Plan Details* * Sign off status: Completed true * Provider: Marcos Holman, DO Date: 0 09/12/2024 Generated for Babar tao/Caleb/Hernanitting on: 0 11/17/2024 09:51 AM EDT History and Physical Notes * HPI (History of Present Illness) Category Sub-Category Detail Notes Category Not es Initial Visit Pt previously seen by me at [facility]. Pt 2003 had partial thyroidectomy. In 07/03 had completion since FNA questionable. After surgery was on T4 and fluid - once on T3 better. FOLLOW UP Like Pebbles but no weight loss Sugar control good No palpitations No cardiac, GI or resp sx Physical Examination Category Sub-Category Detail Notes Section Note s HEENT Eyes: unremarkable Neck Thyroid: no palpable thyroid EXTREMITIES Edema: none CHEST Breath sounds: normal Wheezes: none Heart Rhythm: regular Rate: regular ABDOMEN Bowel sounds: normal General: soft, normal Rebound tenderness: absent NEUROLOGICAL Reflexes: normal *Tremor: none DERMATOLOGY Skin: warm, moist, No rash, normal GENERAL General Appearance: well-appearing, no ac wales distress Build: normal
--- OUTSIDE RECORDS SUMMARY | 2024-09-18 09:00 | XMS_ITS ---
Author Organization Corporate Office Address [address] [place] [address] [address] [facility] [place] [address] Care Team Providers Care Body Technician/Painter Name Role Phone Venus Daniels Primary Care Provider Yoko Corona CHILDREN'S MINISTRY DIRECTOR, Marta Unavailable Delisa Holman DO REASON FOR VISIT 6 mo f/u DM2, Pt last A1C was, Pt BG logs, Pt refills Encounters Encounter Location Date Provider Diagnosis [facility] Center Endocrinology [address] [place] [address] 09/18/2024 Delisa Holman Plan Of Treatment Next Appt Details Provider Name:Delisa bauer, 03/19/2025 03:00:00 PM, [address], [place], [address], Progress Notes * CALHOUNLillianLathaB:1960 ([age] yo F)Acc No.[id number]:09/18/2024 Progress Notes Patient: Willa NASH Provider: Marcos Holman DO Case Label: Date Of Injury: :1960 A ge:64 Y S ex:Female Date:09/18/2024 Address:[address] [place], [place] [address], [id number] Pcp:Venus Daniels Subjective: * Chief Complaints: * 1 . 6 mo f/u DM2. 2. Pt last A1C was. 3. Pt BG logs. 4. Pt refills. * Medical History: Objective: * Vitals: Assessment: Plan: * Treatment: * Care Plan Details* * Electronic signature of Madeline Holman DO, DO on 11/17/2024 at 09:51 AM EDT Sign off status: Pending * Provider: Marcos Holman DO Date: 09/18/2024 Generated for Babar tao/Caleb/Alejandrina on: 0 11/17/2024 09:51 AM EDT
--- OUTSIDE RECORDS SUMMARY | 2024-11-17 09:51 | XMS_ITS | Encounter Summary ---
Author Organization [facility] Address [address] [place], [place] [id number] Care Team Providers Care Cath Lab Nurse Name Role Phone Venus Daniels MD Primary Care Provider [phone] Source Comments In the event this information is protected by the Federal Confidentiality of Alcohol and Drug AbusePatient Records regulations: The Federal rules restrict any use of the information to criminally investigate or prosecute any alcohol or drug abuse patient.[facility] Encounter Details Date Type Department Care Team (Latest Contact Info) Description 01/16/2021 H&P External-NonCCF Provider, External, JOSEFA Do not enter address information under generic External Provider. Social History Tobacco Use Types Packs/Day Years Used Date Smoking Tobacco: Never Alcohol Use Standard Drinks/Week Comments No 0 (1 standard drink = 0.6 oz pur e alcohol) Area Deprivation Index Answer Date Levar rded National Score (1-100), lower number is lower ri sk Not on file 01/20/2021 State Score (1-10), lower number is lower risk N ot on file 01/20/2021 Data from: https://www.neighborhoodatlas.medicine.[facility].edu/. Last address used for calculation Not on file 01/20/2021 Comments No Sex and Gender Information Value Date Recorded Sex Assigned at Not on file Legal Sex Female 8:07 AM EST Gender Identity Not on file Sexual Orientation Not on file COVID-19 Exposure Response Date Recorded In the last month, have you been in contact with someone who was confirmed or suspected to have Coronavirus / COVID-19? No / Unsure 01/13/2021 12:07 PM EDT documented as of this encounter Functional Status * Are you deaf or do you have serious difficulty hearing? Answer Date of Assessment Author No 11/27/2013 9:29 AM EDT Jaya Fatima LPN * Are you blind or do you have serious difficulty seeing, even when wearing glasses? Answer Date of Assessment Author No 11/27/2013 9:29 AM EDT Jaya Fatima LPN * Do you have serious difficulty walking or climbing stairs? Answer Date of Assessment Author No 11/27/2013 9:29 AM EDT Jaya Fatima LPN * Do you have difficulty dressing or bathing? Answer Date of Assessment Author No 11/27/2013 9:29 AM EDT Jaya Fatima PLUNKET NURSE * Because of a physical, mental, or emotional condition, do you have difficulty doing errands alone such as visiting a doctor's office or shopping? Answer Date of Assessment Author No 11/27/2013 9:29 AM EDT Jaya Fatima LPN documented as of this encounter Mental Status * Because of a physical, mental, or emotional condition, do you have serious difficulty concentrating, remembering, or making decisions? Answer Entry Date Author No 11/27/2013 9:29 AM EDT Jaya Fatima LPN documented in this encounter Plan of Treatment Not on file documented as of this encounter Visit Diagnoses Not on filedocumented in this encounter Care Teams Cath Lab Nurse Relationship Specialty Start Date End Date Venus Daniels MD [facility] [place] [address] PCP - General Family Medicine 10/08/13 documented as of this encounter
--- OUTSIDE RECORDS SUMMARY | 2024-11-17 09:51 | XMS_ITS | Clinical Summary ---
Author Organization [facility] Address [address] [place], [place] [address] Care Team Providers Care Shoe Cleaner Name Role Phone Venus Daniels MD Primary Care Provider [phone] Allergies Active Allergy Reactions Criticality Noted Date Comments Aspirin Unknown 01/19/2021 Sulfamethoxazole-Trimethoprim Unknown 2020 Ciprofibrate Unknown 01/19/2021 Codeine Unknown 01/19/2021 Propoxyphene N-Acetaminophen 007 stupor, off balance Propoxyphene 04/18/2007 off balance, stupor Cephalexin 04/18/2007 itch and rash Levofloxacin 04/18/2007 skin turn fire red, and stinging Nitrofurantoin Monohyd/M-Cryst Unknown 01/19/2021 Penicillins 04/18/2007 convulsions and blindness Sulfa (Sulfonamide Antibiotics) Unknown 01/19/2021 Medications zolpidem (AMBIEN) 10 mg ORAL Tab Take by mouth at bedtime as needed. Active COMPOUNDED PRESCRIPTION Vitamin D 5,000 IU, Take one(1) tablet daily. 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 4 Active venlafaxine XR (EFFEXOR XR) 75 mg 24 hr capsuleIndications: Malignant neoplasm of thyroid gland (HCC),Postsurgical hypothyroidism Take 1 capsule by mouth once daily. 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 0 4 Active Levothyroxine (TIROSINT) 112 mcg cap Take 112 mcg by mouth once daily. 90 capsule 1 5 Active BASAGLAR KWIKPEN U-100 INSULIN 100 unit/mL (3 mL) 1 Active Active Problems Problem Noted Date Diagnosed Date Depression 11/27/2013 Vitamin D deficiency 11/27/2013 Edema 11/27/2013 Weight gain 11/27/2013 Hypothyroidism, postsurgical 09/22/2010 Malignant neoplasm of thyroid gland 09/22/2010 Hypothyroid 07/22/2009 Immunizations Immunization Administration Dates Next Due tetanus diphtheria pertussis (Tdap) vaccine, age 7+ yr (ADACEL, BOOSTRIX) 11/20/2012 Family History Medical History Relation Comments hypothyroid [Other] Daughter both daughte r thyroid nodules [Other] Daughter botherda ughter Thyroid Sister sandra thyroidecto my Relation Status Comments Daughter Sister Social History Tobacco Use Types Packs/Day Years Used Date Smoking Tobacco: Never Smokeless Tobacco: Never Alcohol Use Standard Drinks/Week Comments No 0 (1 standard drink = 0.6 oz pur e alcohol) Area Deprivation Index Answer Date Levar rded National Score (1-100), lower number is lower ri sk Not on file 01/20/2021 State Score (1-10), lower number is lower risk N ot on file 01/20/2021 Data from: https://www.neighborhoodatlas.medicine.[facility].edu/. Last address used for calculation Not on file 01/20/2021 Comments No Sex and Gender Information Value Date Recorded Sex Assigned at Not on file Legal Sex Female 8:07 AM EST Gender Identity Not on file Sexual Orientation Not on file Last Filed Vital Signs Vital Sign Reading Time Taken Comments Blood Pressure 148/83 01/20/2021 10:45 AM EDT Pulse 93 01/20/2021 10:45 AM EDT Temperature 36.6 C (97.9 F) 01/20/2021 10:45 AM EDT Respiratory Rate 18 01/20/2021 10:4 5 AM EDT Oxygen Saturation 96% 01/20/2021 10: 45 AM EDT Inhaled Oxygen Concentration - - Weight 119.9 kg (264 lb 6.4 oz) 021 10:45 AM EDT Height 167.5 cm (5' 5.95 ) 01/20/2021 1 0:45 AM EDT Body Mass Index 42.75 01/20/2021 10:45 AM EDT Plan of Treatment Health Maintenance Due Date Last Done Comments Anxiety Screening 02/05/1980 Depression Screening 02/05/1980 HIV Screening 02/05/1980 Hepatitis C Screening 02/05/1980 CT Colonography 2007 Cologuard (FIT-DNA) 2007 Fecal Occult Blood 2007 Sigmoidoscopy 2007 Colonoscopy 05/23/2009 05/23/2008 Colorectal Cancer Screening 05/23/2009 Cervical Cancer Screening 05/23/2010 05/23/2007 Pneumococcal Vaccine: 50+ (1 of 1 - PCV) 02/05/2012 Shingrix Vaccine (1 of 2) 02/05/2012 Mammogram Screening 03/23/2014 03/23/2013 Diabetes Screening 09/25/2016 09/25/2013 Lipid Screening 04/10/2017 04/10/2012 DTaP,Tdap,Td Vaccine (2 - Td or Tdap) 11/20/202205/2012 Covid-19 Vaccine ( - season) 2024 Influenza Vaccine (Season Ended) 2025 RSV Vaccine (1 - 1-dose 75+ series) 2037 Insurance CHOICE PLUS Care Teams Shoe Cleaner Relationship Specialty Start Date End Date Venus Daniels MD [address] [place] [id number] PCP - General Family Medicine 10/08/13
--- OUTSIDE RECORDS SUMMARY | 2024-11-17 09:51 | XMS_ITS | CCD ---
Author Organization [facility] Care Team Providers Care Head Of Sales Name Role Phone VENUS CHEN Primary Care Physician Venus Chen DR VENUS CHEN Primary Care Unavailable MISC, DR CARMONA Attending Unavailable MISC, DR CARMONA Consulting Unavailable MISC, DR CARMONA Admitting Unavailable FABIOLA BLAKE Attending Unavailable OXANA RUIZ Attending Unavailable MD Venus Chen Primary Care Provider MD Venus Chen Attending Provider RUDDY SIMMONS [...] Care Provider Los Cam MD Attending Provider Venus Chen Admitting Unavailable Venus Chen Primary Care Unavailable Venus Chen Attending Unavailable Los Cam II Admitting UnavailLos Brady II Attending UnavailVenus Yeboah Primary Care Unavailable VENUS CHEN Unavailable REFERRAL, SELF Referring Unavailable REFERRAL, SELF Attending Unavailable REFERRAL, SELF Admitting Unavailable MD VENUS CHEN Consulting Unavailable Venus Chen MD Primary Care Provider Venus Chen MD Attending Provider Allergies Allergy Classification Reported Allergen(s) Allergy Type Date of Onset Reaction(s) Facility (3 sources) Amoxicillin; Translations: [amoxicillin] Drug Allergy Unknown cause [facility] (17 sources) Ciprofloxacin; Translations: [ciprofloxacin] Drug Allergy 04-11-20 13 Unknown cause, Unknown, [facility] Comment on above: Onset Date: 04/11/20 13 (3 sources) Gluten; Translations: [Glutens] Drug allergy Unknown cause [facility] (3 sources) Latex; Translations: [Latex] Drug allergy Unknown cause [facility] (9 sources) Penicillin; Translations: [penicillin] Drug Allergy Unknown cause, Unknown [facility] (3 sources) Milk Products; Translations: [Milk Products] Drug allergy Unknown cause [facility] (6 sources) Acetaminophen / Propoxyphene Drug Allergy Unknown [facility] Other (11 sources) Aspirin; Translations: [ASPIRIN] Drug Allergy 01-20-20 21 Unknown, [facility] (6 sources) Cephalexin Drug Allergy Unknown [facility] Other (11 sources) Codeine; Translations: [CODEINE] Drug Allergy 01-20-20 21 Unknown, [facility] (7 sources) levoFLOXacin; Translations: [Levaquin] Drug Allergy 06-06-19 14 Unknown [facility] (6 sources) NITROFURANTOIN, MACROCRYSTALS / Nitrofurantoin, Monohydrate Drug Allergy Unknown [facility] Other (6 sources) Sulfamethoxazole / Trimethoprim Drug Allergy Unknown [facility] Other (6 sources) Substance with sulfonamide structure and antibacterial mechanism of action (substance) Drug allergy Unknown [facility] Other (1 source) Acetaminophen / HYDROcodone Drug Allergy 06-13-19 14 [facility] (1 source) Acetaminophen / oxyCODONE Drug Allergy 06-13-19 14 [facility] (4 sources) Morphine; Translations: [MORPHINE] Drug Allergy 06-13-19 14 [facility] (7 sources) Penicillins; Translations: [PENICILLINS] Drug allergy (disorder) 04-18-20 07 [facility] Comment on above: Onset Date: 04/11/20 13 (1 source) thyroid (CARE HOME) Drug Allergy 06-13-19 14 [facility] (1 source) Darvocet-N 100 Drug allergy (disorder) 06-13-19 14 [facility] (3 sources) natural latex rubber; Translations: [LATEX, NATURAL RUBBER] Propensity to adverse reactions to drug (disorder) 08-23-19 18 [facility] (1 source) Sulfamethoxazole / Trimethoprim; Translations: [SULFAMETHOXAZOLE-T RIMETHOPRIM] Drug Allergy 01-20-20 21 [facility] (3 sources) ADHESIVE TAPE-SILICONES; Translations: [ADHESIVE TAPE-SILICONES] Propensity to adverse reactions to drug (disorder) 08-23-19 18 [facility] (1 source) PROPOXYPHENE N-ACETAMINOPHEN; Translations: [PROPOXYPHENE N-ACETAMINOPHEN] Propensity to adverse reactions to drug (disorder) 09-07-19 23 [facility] (3 sources) aspirin contraindicated Propensity to adverse reactions 04-26-20 14 Comment:advers e rxn/side effects [facility] Other (3 sources) Darvocet A500 *ANALGESICS - OPIOID* Propensity to adverse reactions 04-11-20 13 Unknown [facility] Other (3 sources) Allergies Reconciled Propensity to adverse reactions Unknown [facility] Other (3 sources) Substance with penicillin structure and antibacterial mechanism of action (substance) Drug allergy 04-11-20 13 Unknown [facility] Other (3 sources) patient allergy list reviewed by nurse or physicia Propensity to adverse reactions 04-11-20 13 Comment:Done [facility] Other (3 sources) Keflex *CEPHALOSPORINS* Propensity to adverse reactions 04-11-20 13 Unknown [facility] Other (3 sources) Acetaminophen Drug Allergy 07-18-19 24 [facility] (3 sources) Cephalexin Drug Allergy 07-18-19 24 [facility] (3 sources) Cephalosporins (Antibiotic) Allergy to substance 07-18-19 [facility] Comment on above: Onset Date: 04/11/20 13 (3 sources) levoFLOXacin Drug Allergy 07-18-19 [facility] (3 sources) Nitrofurantoin Drug Allergy 07-18-19 24 [facility] (3 sources) Propoxyphene Drug Allergy 07-18-19 [facility] (3 sources) Sulfamethoxazole Drug Allergy 07-18-19 [facility] (5 sources) Sulfonamides (Antibiotic); Translations: [SULFA (SULFONAMIDE ANTIBIOTICS)] Allergy to substance 01-20-20 [facility] (3 sources) Trimethoprim Drug Allergy 07-18-19 [facility] (3 sources) Darvocet A500 *ANALGESICS - OP Allergy to substance 07-18-19 [facility] Comment on above: Free Text Allergy: D [...] Start: 11-11-2017 take 1 capsule by mo [facility] once daily Tirosint 125 mcg (0.125 [...] Once a day Active polyethylene glycol 3350 170302 mg / potassium chloride 1480 mg / sodium bicarbonate 5720 mg / sodium chloride 12800 mg powder for oral solution (1 source) Osmotic Laxative Start: 11-15-2022 NuLYTELY Daniels oral powder for reconstitution See Instructions, 1 EA, Refill(s) 0, See physician instructions prior to procedure., [employer] #72, 163, cm, 11/11/22 15:08:00 EDT, [...] number: 1 take 1 capsule by mo [facility] once daily Venlafaxine HCl ER 150 [...] 12, 2023 1:39pm take 1 tablet by becky th every twelve hours metFORMIN HCl 1000 [...] VERY IMPORTANT TO YOUR HEALTH. THE CURRENT [employer] [...] Guido Gutiérrez MD Transcribed by: NEIL Technologist: [facility] Assessment: BI-RADS Category 1-Negative Recommendation: Normal interval follow-up Normal [facility] X-ray reportOrdered By: Devon Feliciano on 06-06-2024 Study report [facility] [address] [place] [address] XRay Report Signed Patient: Nia Calhoun MR#: [id number] : 1960 Acct:[id number] Age/Sex: 64 / F ADM Date: 5 Loc: [facility] Room: Type: [facility] Attending Dr: Los Cam II, MD Copies to: Los Cam MD~ Ordering Provider: Los Cam MD Date of Service: 06/06/24 XR/XR knee RT 4V*: M25.561 - Pain in right knee ([id number]) XR/XR pelvis 1-2V: M25.561 - Pain in [...] Feliciano Jr., D.O.06/06/2024 4:34 PM Dictation Location: [place] [address] Transcribed By: [facility] 06/06/24 1634 Dictated By: Luis A Feliciano Jr, DO 06/06/24 1633 Signed By: 06/06/24 1634 [facility] XR knee RT 4V*on 06-06-2024 XR knee RT 4V* [facility] [address] [place] [address] XRay Report Signed Patient: Nia Calhoun MR#: [id number] : 1960 Acct:[id number] Age/Sex: 64 / F ADM Date: 06/06/24 Loc: [facility] Room: Type: [facility] Attending Dr: Los Cam II, MD Copies to: Los Cam MD Ordering Provider: Los Cam MD Date of Service: 06/06/24 XR/XR knee RT 4V*: M25.561 - Pain in right knee ([id number]) XR/XR pelvis 1-2V: M25.561 - Pain in [...] Feliciano Jr., D.OOsmany06/06/2024 4:34 PM Dictation Location: [place] [address] Transcribed By: [facility] 06/06/24 1634 Dictated By: Luis A Feliciano Jr DO 06/06/24 1633 Signed By: 06/06/24 1634 Normal [facility] CT abdomen pelvis w conon CT abdomen pelvis w [facility] [address] [place] [address] CT Scan Report Signed Patient: Nia Calhoun MR#: [id number] : 1960 Acct:[id number] Age/Sex: 63 / F ADM Date: 08/03/23 Loc: CT Room: Type: [facility] Attending Dr: Venus Chen MD Copies [...] Feliciano Jr., D.O.08/03/2023 4:01 PM Dictation Location: [place] [address] Transcribed By: [facility] 08/03/23 1601 Dictated By: Luis A Feliciaon Jr, DO 08/03/23 1558 Signed By: 08/03/23 1601 Normal [facility] Basophils Auto (Bld) [#/Vol] on 07-30-2023 Basophils (Bld) [#/Vol] 0.1 10 3/uL 0.0-0.1 [facility] Basophils/100 WBC Auto (Bld) on 07-30-2023 Basophils/100 WBC (Bld) 0.6 % 0.2-2.0 [facility] Cholesterol in LDL Calc [Mas s/Vol]on 07-30-2023 Cholesterol in LDL [Mass/Vol] 132.0 mg/dL [facility] Comment on above: <100 mg/dl [id number] 0-129 mg/dl NEAR OR ABOVE [id number] mg/dl BORDERLINE [id number] mg/dl HIGH>190 mg/dl VERY HIGH Cholesterol in VLDL Calc [Ma ss/Vol]on 07-30-2023 Cholesterol in VLDL [Mass/Vol] 25.6 mg/dL [facility] Eosinophils/100 WBC Auto (Bl d)on 07-30-2023 Eosinophils/100 WBC (Bld) 3.0 % 0.9-7.0 [facility] Erythrocyte distribution wid th Auto (RBC) [Ratio]on 07-30-2023 Erythrocyte distribution width (RBC) [Ratio] 12.6 % 11.0-15.0 [facility] Estimated glomerular filtrat ion rate (GFR) non- Americanon 07-30-2023 GFR/1.73 sq M.predicted among non-blacks MDRD (S/P/Bld) [Vol rate/Area] mL/min/{1.73_m2} >=60 [facility] Globulin Calc (S) [Mass/Vol] on 07-30-2023 Globulin (S) [Mass/Vol] 4.1 g/dL [facility] Glucose mean value [Mass/vol ume] in Blood Estimated from glycated hemoglobinon 07-30-2023 Average glucose Estimated from glycated hemoglobin (Bld) [Mass/Vol] 151 mg/dL [facility] Hematocrit Auto (Bld) [Volum e fraction]on 07-30-2023 Hematocrit (Bld) [Volume fraction] 41.4 % 36.0-48.0 [facility] Hemoglobin [Mass/volume] in Bloodon 07-30-2023 Hemoglobin (Bld) [Mass/Vol] 12.9 g/dL 12.0-16.0 [facility] Laboratory - Chemistry and C hemistry - challengeon 07-30-2023 Albumin [Mass/Vol] 3.2 g/dL 3.4-5.0 [facility] ALP [Catalytic activity/Vol] 84 U/L 46-116 [facility] ALT [Catalytic activity/Vol] 29 U/L 14-59 [facility] AST [Catalytic activity/Vol] 15 U/L 15-37 [facility] Bilirubin [Mass/Vol] 0.4 mg/dL 0.2-1.0 [facility] Calcium [Mass/Vol] 8.4 mg/dL 8.5-10.1 [facility] Chloride [Moles/Vol] 104 mmol/L 98-107 [facility] Cholesterol [Mass/Vol] 218 mg/dL <=200 [facility] Cholesterol in HDL [Mass/Vol] 61 mg/dL 40-60 [facility] Comment on above: > or =60 mg/dl - LOW CARDIOVASCULAR RISK<40 mg/dl - HIGH CARDIOVASCULAR RISK CO2 [Moles/Vol] 27.7 mmol/L 21.0-32.0 [facility] Creatinine [Mass/Vol] 0.87 mg/dL 0.55-1.02 [facility] Free T4 [Mass/Vol] 1.05 ng/dL 0.76-1.46 [facility] GFR/1.73 sq M.predicted MDRD (S/P/Bld) [Vol rate/Area] mL/min/{1.73_m2} >=60 [facility] Glucose [Mass/Vol] 143 mg/dL 74-106 [facility] Potassium [Moles/Vol] 4.3 mmol/L 3.5-5.1 [facility] Protein [Mass/Vol] 7.3 g/dL 6.4-8.2 [facility] Sodium [Moles/Vol] 140 mmol/L 136-145 [facility] Triglyceride [Mass/Vol] 128 mg/dL <=150 [facility] TSH Qn 0.248 m[IU]/L 0.358-3.740 [facility] Urea nitrogen [Mass/Vol] 12.0 mg/dL 7.0-18.0 [facility] Urea nitrogen/Creatinine [Mass ratio] 13.8 mg/mg [facility] Laboratory - Hematology and Cell countson 07-30-2023 HbA1c (Bld) [Mass fraction] 6.9 % 4.5-6.2 [facility] Comment on above: ADA RECOMMENDED LIMI T 4.0 - 6.0ADA THERAPEUTIC TARGET < 7.0ACTION SUGGESTED> 7.0 Immature granulocytes/100 WBC (Bld) 0.3 % 0.0-0.5 [facility] Leukocytes [#/volume] correc cedrick for nucleated erythrocytes in Blood by Automated counon 07-30-2023 WBC corrected for nucl RBC Auto (Bld) [#/Vol] 10.7 10 3/uL 4.0-11.0 [facility] Lymphocytes Auto (Bld) [#/Vo l]on 07-30-2023 Lymphocytes (Bld) [#/Vol] 3.2 10 3/uL 1.2-3.8 [facility] Lymphocytes/100 WBC Auto (Bl d)on 07-30-2023 Lymphocytes/100 WBC (Bld) 29.6 % 20.5-60.0 [facility] MCH Auto (RBC) [Entitic mass ]on 07-30-2023 MCH (RBC) [Entitic mass] 27.4 pg 26.7-34.0 [facility] MCHC Auto (RBC) [Mass/Vol]on 07-30-2023 MCHC (RBC) [Mass/Vol] 31.2 g/dL 29.9-35.2 [facility] MCV Auto (RBC) [Entitic vol] on 07-30-2023 MCV (RBC) [Entitic vol] 87.9 fL 81.0-99.0 [facility] Microalbumin [Mass/volume] i n Urineon 07-30-2023 Albumin DL <= 20 mg/L (U) [Mass/Vol] mg/dL <=30.0 [facility] Monocytes Auto (Bld) [#/Vol] on 07-30-2023 Monocytes (Bld) [#/Vol] 0.6 10 3/uL 0.3-0.8 [facility] Monocytes/100 WBC Auto (Bld) on 07-30-2023 Monocytes/100 WBC (Bld) 5.9 % 1.7-12.0 [facility] Neutrophils Auto (Bld) [#/Vo l]on 07-30-2023 Neutrophils (Bld) [#/Vol] 6.5 10 3/uL 1.4-6.5 [facility] Neutrophils/100 WBC Auto (Bl d)on 07-30-2023 Neutrophils/100 WBC (Bld) 60.6 % 43.0-75.0 [facility] No Panel Informationon 07-29 Eosinophils # (Auto) 0.3 10 3/uL 0.0-0.7 [facility] Free Triiodothyronine 2.03 pg/mL 2.18-3.98 [facility] Immature Granulocyte # (Auto) 0.03 10 3/uL 0.00-0.03 [facility] Platelet mean volume Auto (B ld) [Entitic vol]on 07-30-2023 Platelet mean volume (Bld) [Entitic vol] 9.0 fL 9.5-13.5 [facility] Platelets Auto (Bld) [#/Vol] on 07-30-2023 Platelets (Bld) [#/Vol] 318 10 3/uL 150-450 [facility] RBC Auto (Bld) [#/Vol]on RBC (Bld) [#/Vol] 4.71 10 6/uL 4.20-5.40 [facility] Serum or plasma albumin/glob ulin mass ratioon 07-30-2023 Albumin/Globulin [Mass ratio] 0.8 {ratio} [facility] Serum or plasma anion gap de terminationon 07-30-2023 Anion gap [Moles/Vol] 12.6 mmol/L [facility] Serum or plasma thyroperoxid ase antibody assay (units/volume)on 07-30-2023 TPO Ab Qn [IU]/mL 0-34 [facility] Serum or plasma total choles terol/high density lipoprotein (HDL) cholesterol mass [place] 07-30-2023 Cholesterol.total/C holesterol in HDL [Mass ratio] 3.6 {ratio} [facility] Comment on above: 3.3 - 4.4 LOW RISK4. 4 - 7.1 AVERAGE RISK7.1 - 11.0 MODERATE RISK>11.0 HIGH RISK Thyroglobulin [Mass/volume] in Serum or Plasmaon 07-30-2023 Thyroglobulin [Mass/Vol] <1.0 [IU]/mL 0.0-0.9 [facility] Comment on above: Thyroglobulin Antibo dy measured by BedlooMethodologyIt should be noted that the presence of thyroglobulinantibodies may not be pathogenic nor diagnostic, especiallyat very low levels. The assay refrigeration mechanic helper has found thatfour percent of individuals without evidence of thyroiddisease or autoimmunity will have positive TgAb levels upto 4 IU/mL.Performed at: [facility] [id number] Director: Chris Galicia PhD, Phone: [phone] Office Visiton 11-22-2022 Follow-up visit [id number] Nia Calhoun 1960 F Date Provider Department Center 11/22/2022 271-FABIOLA BLAKE [facility] Family History Problem Relation Age of Onset Coronary artery disease Father Arrhythmia Father Heart attack Father Coronary artery disease Sister Arrhythmia Brother Family Status - Relation Status Age at Father Sister Brother Level of Service:48001 AR OFFICE/OUTPATIENT ESTABLISHED MOD MDM 30-39 MIN Normal [facility] Follow-Upon 09-06-2022 Follow-Up [id number] Nia Calhoun 1960 F Date Provider Department Center 09/06/2022 OXANA GRESHAM [facility] Family History Problem Relation Age of Onset Coronary artery disease Father Arrhythmia Father Heart attack Father Coronary artery disease Sister Arrhythmia Brother Family Status - Relation Status Age at Father Sister Brother Level of Service:82574 AR OFFICE/OUTPATIENT ESTABLISHED MOD MDM 30-39 MIN Reason for Visit and Comments: Palpitations [[id number]] Normal [facility] GLYCOHEMOGLOBIN A1Con 2021 ADA RECOMMENDATION SEE BELOW Normal [facility] Comment on above: Result Comment: ADA RECOMMENDED LIMIT 4.0 - 6.0 ADA THERAPEUTIC TARGET < 7.0 ACTION SUGGESTED > 7.0 Performed By: #### A 1C #### [facility] [address] [place] [address] [address] Deborah Gustafson Glucose [Mass/Vol] 154 mg/dL Normal [facility] Comment on above: Performed By: #### A 1C #### [facility] [address] [place] [address] [address] Deborah Gustafson HbA1c (Bld) [Mass fraction] 7.0 % Critically high 4.5-6.2 [facility] Comment on above: Performed By: #### A 1C #### [facility] [address] [place] [address] [address] Deborah Gustafson LIPID PROFILEon 12-19-2021 CHOL-HDL RATIO NORM SEE BELOW Normal [facility] Comment on above: Result Comment: 3.3 - 4.4 LOW RISK 4.4 - 7.1 AVERAGE RISK 7.1 - 11.0 MODERATE RISK >11.0 HIGH RISK Performed By: #### T SH, CMP, LIPID #### [facility] [address] [place] [address] [address] Deborah Gustafson Cholesterol [Mass/Vol] 221 mg/dL Critically high <=200 [facility] Comment on above: Performed By: #### T SH, CMP, LIPID #### [facility] [address] [place] [address] [address] Deborah Gustafson Cholesterol in HDL [Mass/Vol] 63 mg/dL Critically high 40-60 [facility] Comment on above: Performed By: #### T SH, CMP, LIPID #### [facility] [address] [place] [address] [address] Deborah Gustafson Cholesterol in LDL [Mass/Vol] 137.6 mg/dL Normal [facility] Comment on above: Performed By: #### T LEYDA CMP, LIPID #### [facility] [address] [place] [address] [address] Deborah Gustafson Cholesterol.total/C holesterol in HDL [Mass ratio] 3.5 {ratio} Normal [facility] Comment on above: Performed By: #### T LEYDA, CMP, LIPID #### [facility] [address] [address] [address] Deborah Gustafson HDL NORMAL > or = 60 mg/dl - LO W CARDIOVASCULAR RISK <40 mg/dl - HIGH CARDIOVASCULAR RISK Normal [facility] Comment on above: Performed By: #### T LEYDA CMP, LIPID #### [facility] [address] [place] [address] Dr. Deborah Gustafson LDL CALC NORMAL SEE BELOW Normal [facility] Comment on above: Result Comment: <100 mg/dl OPTIMAL 100 - 129 mg/dl NEAR OR ABOVE OPTIMAL 130 - 159 mg/dl BORDERLINE HIGH 160 - 189 mg/dl HIGH >190 mg/dl VERY HIGH Performed By: #### T LEYDA CMP, LIPID #### [facility] [address] [place] [address] Dr. Deborah Gustafson Triglyceride [Mass/Vol] 102 mg/dL Normal <=150 [facility] Comment on above: Performed By: #### T LEYDA CMP, LIPID #### [facility] [address] [place] [address] Dr. Deborah Gustafson VLDL CALC 20.4 mg/dL Normal [facility] Comment on above: Performed By: #### T LEYDA, CMP, LIPID #### [facility] [address] [place] [address] Dr. Deborah Gustafson PROF 14(COMP METB)on 022 Albumin [Mass/Vol] 3.5 g/dL Normal 3.4-5.0 [facility] Comment on above: Performed By: #### T LEYDA, CMP, LIPID #### [facility] [address] [place] [address] [address] Deborah Gustafson Albumin/Globulin [Mass ratio] 1.0 {ratio} Normal [facility] Comment on above: Performed By: #### T SH, CMP, LIPID #### [facility] [address] [place] [address] [address] Deborah Gustafson ALP [Catalytic activity/Vol] 83 U/L Normal 46-116 [facility] Comment on above: Performed By: #### T SH, CMP, LIPID #### [facility] [address] [place] [address] [address] Deborah Gustafson ALT [Catalytic activity/Vol] 32 U/L Normal 14-59 [facility] Comment on above: Performed By: #### T SH, CMP, LIPID #### [facility] [address] [place] [address] Dr. Deborah Gustafson Anion gap [Moles/Vol] 9.9 mmol/L Normal [facility] Comment on above: Performed By: #### T SH, CMP, LIPID #### [facility] [address] [place] [address] Dr. Deborah Gustafson AST [Catalytic activity/Vol] 15 U/L Normal 15-37 [facility] Comment on above: Performed By: #### T SH, CMP, LIPID #### [facility] [address] [place] [address] Dr. Deborah Gustafson Bilirubin [Mass/Vol] 0.4 mg/dL Normal 0.2-1.0 [facility] Comment on above: Performed By: #### T SH, CMP, LIPID #### [facility] [address] [place] [address] Dr. Deborah Gustafson Calcium [Mass/Vol] 8.8 mg/dL Normal 8.5-10.1 [facility] Comment on above: Performed By: #### T SH, CMP, LIPID #### [facility] [address] [place] [address] Dr. Deborah Gustafson Chloride [Moles/Vol] 104 mmol/L Normal 98-107 [facility] Comment on above: Performed By: #### T SH, CMP, LIPID #### [facility] [address] [address] [address] Deborah Gustafson CO2 [Moles/Vol] 31.3 mmol/L Normal 21.0-32.0 [facility] Comment on above: Performed By: #### T SH, CMP, LIPID #### [facility] [address] [address] [address] Deborah Gustafson Creatinine [Mass/Vol] 0.86 mg/dL Normal 0.55-1.02 [facility] Comment on above: Performed By: #### T SH, CMP, LIPID #### [facility] [address] [address] [address] Deborah Gustafson EGFR-AF URUGUAYAN >60 Normal >=60 [facility] Comment on above: Performed By: #### T SH, CMP, LIPID #### [facility] [address] [address] [address] Deborah Gustafson EGFR-NON AF URUGUAYAN >60 Normal >=60 [facility] Comment on above: Performed By: #### T SH, CMP, LIPID #### [facility] [address] [address] [address] Deborah Gustafson Globulin (S) [Mass/Vol] 3.5 g/dL Normal [facility] Comment on above: Performed By: #### T SH, CMP, LIPID #### [facility] [address] [address] [address] Deborah Gustafson Glucose [Mass/Vol] 124 mg/dL Critically high 74-106 [facility] Comment on above: Performed By: #### T SH, CMP, LIPID #### [facility] [address] [address] [address] Deborah Gustafson Potassium [Moles/Vol] 4.2 mmol/L Normal 3.5-5.1 [facility] Comment on above: Performed By: #### T SH, CMP, LIPID #### [facility] [address] [address] [address] Deborah Gustafson Protein [Mass/Vol] 7.0 g/dL Normal 6.4-8.2 [facility] Comment on above: Performed By: #### T SH, CMP, LIPID #### [facility] [address] [address] [address] Deborah Gustafson Sodium [Moles/Vol] 141 mmol/L Normal 136-145 [facility] Comment on above: Performed By: #### T SH, CMP, LIPID #### [facility] [address] [address] [address] Deborah Gustafson Urea nitrogen [Mass/Vol] 10.0 mg/dL Normal 7.0-18.0 [facility] Comment on above: Performed By: #### T SH, CMP, LIPID #### [facility] [address] [address] [address] Deborah Gustafson Urea nitrogen/Creatinine [Mass ratio] 11.6 mg/mg Normal [facility] Comment on above: Performed By: #### T SH, CMP, LIPID #### [facility] [address] [place] [address] Dr. Deborah Gustafson TSHon 12-19-2021 TSH 0.428 uIU/mL Normal 0.358-3.740 [facility] Comment on above: Performed By: #### T SH, CMP, LIPID #### [facility] [address] [place] [address] Dr. Deborah Gustafson CNOVSPon 01-20-2021 OVS Visit (SP) [facility] -- NIA CAHLOUN ([id number]) 1960 F Date Time Provider Department 01/20/21 11:15 AM WALLACE LAUREANO During your visit today, we recorded the following information about you: Temperature Pulse Respiration Blood pressure 97.9 degrees 93/minute 18/minute 148/83 Weight Height 119.9 kg 1.675 m Wallace Laureano MD 01/22/2021 12:43 PM Signed PATIENT NAME: Nia Calhoun DATE: 01/20/2021 PRIMARY CARE PHYSICIAN: Venus Chen MD OTHER PHYSICIANS: Dr. Henry ([facility] in [place]) HPI: This is a 60 year old female self-referred for evaluation of abnormal labs (homozygous MTHFR mutation) detected on previous genetic analysis. 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 However, she subsequently underwent additional testing with [employer] [facility] and was found to have a homozygous MTHFR [id number] mutation. The patient has never had evidence [...] for nu (more content not included)... Normal [facility] Vital Signs Date Time Vital Sign Value Performing Clinician Facility 11-13-2024 [id number] Body height 162.56 cm Venus Chen MD Work Phone: [facility] 11-13-2024 11:04-0400 Body mass index (BMI) [Ratio] 42.9 kg/m2 Venus Chen MD Work Phone: [facility] 11-13-2024 11:04-0400 Body weight 113.39 kg Venus Chen MD Work Phone: [facility] 11-13-2024 11:04-0400 Diastolic blood pressure 77 mm[Hg] Venus Chen MD Work Phone: [facility] 11-13-2024 11:04-0400 Heart rate 98 /min Venus Chen MD Work Phone: [facility] 11-13-2024 11:04-0400 Systolic blood pressure 118 mm[Hg] Venus Chen MD Work Phone: [facility] 06-06-2024 14:05-0500 Body height 162.56 cm Venus Chen MD Work Phone: [facility] 06-06-2024 14:05-0500 Body mass index (BMI) [Ratio] 44.9 kg/m2 Venus Chen MD Work Phone: [facility] 06-06-2024 14:05-0500 Body weight 118.84 kg Venus Chen MD Work Phone: [facility] 05-10-2024 08:36-0500 Body height 163.83 cm Venus Chen MD Work Phone: [facility] 05-10-2024 08:36-0500 Diastolic blood pressure 72 mm[Hg] Venus Chen MD Work Phone: [facility] 05-10-2024 08:36-0500 Heart rate 91 /min Venus Chen MD Work Phone: [facility] 05-10-2024 08:36-0500 Systolic blood pressure 106 mm[Hg] Venus Chen MD Work Phone: [facility] 07-18-2023 14:01-0500 Body height 163.83 cm MD Venus Chen Work Phone: [facility] 07-18-2023 14:01-0500 Body mass index (BMI) [Ratio] 43.2 kg/m2 MD Venus Chen Work Phone: [facility] 07-18-2023 14:01-0500 Body weight 116.11 kg MD Venus Chen Work Phone: [facility] 07-18-2023 14:01-0500 Diastolic blood pressure 77 mm[Hg] MD Venus Chen Work Phone: [facility] 07-18-2023 14:01-0500 Heart rate 94 /min MD Venus Chen Work Phone: [facility] 07-18-2023 14:01-0500 Systolic blood pressure 119 mm[Hg] MD Vneus Chen Work Phone: [facility] 09-02-2022 09:45-0400 Body height 163.83 cm Venus Chen Other [facility] Other 09-02-2022 09:45-0400 Diastolic blood pressure 80 mm[Hg] Venus Chen Other [facility] Other 09-02-2022 09:45-0400 SaO2% (BldA) [Mass fraction] 99 % Venus Chen Other [facility] Other 09-02-2022 09:45-0400 Systolic blood pressure 132 mm[Hg] Venus Chen Other [facility] [employer] Other 06-23-2022 09:45-0500 Body height 163.83 cm Venus Chen Other [facility] Other 06-23-2022 09:45-0500 Body mass index (BMI) [Ratio] 41.91 kg/m2 Venus Chen Other [facility] Other 06-23-2022 09:45-0500 Body weight 112.49 kg Venus Chen Other [facility] Other 06-23-2022 09:45-0500 Diastolic blood pressure 84 mm[Hg] Venus Chen Other [facility] Other 06-23-2022 09:45-0500 SaO2% (BldA) [Mass fraction] 96 % Venus Chen Other [facility] Other 06-23-2022 09:45-0500 Systolic blood pressure 130 mm[Hg] Venus Chen Other [facility] Other Encounters Encounter Date Encounter Type Care Provider Facility Start: 11-14-2024 ambulatory Venus Chen MD Work Phone: [facility] Work Phone: Start: 11-14-2024 Non-patient / Non-visit Venus velásquez MD -[facility] Work Phone: Start: 11-13-2024 End: 11-13-2024 Patient encounter procedure Venus Chen MD -[facility] Work Phone: Start: 09-10-2024 End: 09-10-2024 ambulatory VENUS CHEN Facility:[facility] Start: 09-10-2024 End: 09-10-2024 Patient encounter procedure SELF REFERRAL [facility] Start: 06-06-2024 End: 06-06-2024 Patient encounter procedure Venus Chen MD Work Phone: [facility] Work Phone: Start: 06-06-2024 End: 06-06-2024 Patient encounter procedure Venus Chen MD Work Phone: [facility] Start: 06-06-2024 End: 06-06-2024 ambulatory Venus Chen MD Work Phone: [facility] Work Phone: Start: 05-10-2024 End: 05-10-2024 Patient encounter procedure Venus Chen MD Work Phone: [facility] Work Phone: Start: 11-08-2023 End: 11-08-2023 Evaluation and management of inpatient LIBBY TO [facility] Start: 11-07-2023 End: 11-08-2023 Evaluation and management of inpatient JO-ANN CUELLAR [facility] Start: 10-31-2023 End: 10-31-2023 ambulatory VENUS CHEN [facility] Start: 10-11-2023 End: 10-11-2023 ambulatory RUDDY Dianna SIMMONS [facility] Ambulatory [facility] Start: 08-03-2023 End: 08-03-2023 Patient encounter procedure MD Venus Chen Work Phone: [facility] Work Phone: Start: 08-03-2023 End: 08-03-2023 ambulatory MD Venus Chen Work Phone: [facility] Work Phone: Start: 07-30-2023 Non-patient / Non-visit MD Martha Chen Work Phone: [facility] Work Phone: Start: 07-18-2023 End: 07-18-2023 Patient encounter procedure MD Venus Chen Work Phone: [facility] Work Phone: Start: 04-11-2023 End: 04-11-2023 ambulatory Venus Chen Other [facility] Other Start: 04-11-2023 Telephone encounter Venus VERGARA [facility] Start: 01-21-2023 End: 01-21-2023 ambulatory Venus Chen Other [facility] Other Start: 01-21-2023 Telephone encounter Venus Chen [facility] Start: 01-10-2023 End: 01-10-2023 ambulatory Venus Chen Other [facility] Other Start: 01-10-2023 Telephone encounter Venus Chen [facility] Start: 11-22-2022 End: 11-22-2022 ambulatory AB [facility] Start: 09-06-2022 End: 09-07-2022 ambulatory OXANA [facility] Start: 09-02-2022 End: 09-02-2022 ambulatory Venus Chen Other [facility] Other Start: 09-02-2022 Office outpatient vi sit 15 minutes Venus Chen [facility] Start: 07-15-2022 End: 07-15-2022 ambulatory Venus Chen Other [facility] Other Start: 07-15-2022 Telephone encounter Venus Chen [facility] Start: 06-23-2022 End: 06-23-2022 ambulatory Venus Chen Other [facility] Other Start: 06-23-2022 Office outpatient vi sit 15 minutes Venus Chen [facility] Start: 06-07-2022 Annual wellness visit Venus duarte Other [facility] Other Start: 03-10-2022 End: 03-10-2022 Patient encounter procedure VENUS CHEN [facility] Start: 12-19-2021 End: 12-20-[address] VENUS CHEN Facility: Start: 10-03-2020 Adult health examination Venus Chen Other [facility] Other Procedures Date Procedure Procedure Detail Performing [...] Activity Detail Author Start: 11-14-2024 Patient referral [facility] Work Phone: Comprehensive metabo lic 2000 panel - Serum or Plasma [facility] Patient Education Low back pain in adults [facility] Work Phone: Patient referral [facility] Work Phone: XR Knee - right 4 Views [facility] Immunizations Immunization Date Immunization Notes Care Provider Fa cili 02-09-2023 influenza, injectabl e, quadrivalent, preservative free Venus Chen Other [facility] 01-27-2022 influenza virus vaccine, split virus (incl. purified surface antigen) Venus Chen Other [facility] Other 01-27-2022 influenza virus vaccine, unspecified formulation MD Venus Chen Work Phone: [facility] 04-26-2021 COVID-19 Vaccine Pfi zer - Documentation Purposes Only Venus Chen Other [facility] 02-24-2021 influenza virus vaccine, split virus (incl. purified surface antigen) Venus Chen Other [facility] Other 02-24-2021 influenza virus vaccine, unspecified formulation MD Venus Chen Work Phone: [facility] 09-03-2020 SARS-CoV-2 (COVID-19 ) mRNA BNT-162b2 vax SELF REFERRAL [facility] 08-19-2020 SARS-CoV-2 (COVID-19 ) mRNA BNT-162b2 vax SELF REFERRAL [facility] 08-11-2020 SARS-CoV-2 (COVID-19 ) mRNA BNT-162b2 vax SELF REFERRAL [facility] 07-29-2020 SARS-CoV-2 (COVID-19 ) mRNA BNT-162b2 vax SELF REFERRAL [facility] 01-22-2020 influenza virus vaccine, split virus (incl. purified surface antigen) Venus Chen Other [facility] Other 01-22-2020 influenza virus vaccine, unspecified formulation MD Venus Chen Work Phone: [facility] 02-19-2019 influenza virus vaccine, split virus (incl. purified surface antigen) Venus Chen Other [facility] Other 02-19-2019 influenza virus vaccine, unspecified formulation MD Venus Chne Work Phone: [facility] 03-01-2018 influenza virus vaccine, split virus (incl. purified surface antigen) Venus Chen Other [facility] Other 03-01-2018 influenza virus vaccine, unspecified formulation MD Venus Chen Work Phone: [facility] 03-17-2017 influenza virus vaccine, unspecified formulation SELF REFERRAL [facility] 03-17-2017 tetanus and diphther ia toxoids, adsorbed, preservative free, for adult use (5 Lf of tetanus toxoid and 2 Lf of diphtheria toxoid) Venus Chen Other [facility] 01-22-2015 tetanus and diphther ia toxoids, adsorbed, preservative free, for adult use (5 Lf of tetanus toxoid and 2 Lf of diphtheria toxoid) Venus Chen Other [facility] 03-13-2014 tetanus and diphther ia toxoids, adsorbed, preservative free, for adult use (5 Lf of tetanus toxoid and 2 Lf of diphtheria toxoid) Venus Chen Other [facility] 11-20-2012 tetanus toxoid, redu sasha diphtheria toxoid, and acellular pertussis vaccine, adsorbed SELF REFERRAL [facility] Payers Date Payer Category Payer Private Health Insurance [facility] [id number] 1960 Unknown [id number] 1960 Unknown [id number] 6 1960 Unknown [id number] 6 1960 Unknown [id number] 6 1960 Unknown [id number] 6 1960 Unknown [id number] 6 1960 Unknown [id number] 6 1960 Unknown [id number] 1957 Private Health Insurance [id number] Private Health Insurance [facility] [id number] Social History Date Type Detail Facility Tobacco smoking status [facility] Sex Assigned At Female [facility] Start: 09-02-2022 End: 02-16-2024 Tobacco smoking status NHIS Never smoked tobacco (finding) [facility] Start: 1960 Sex Assigned At Female F [facility] Start: 06-07-2024 Sex Patient sex un known (finding) [facility] Tobacco smoking status Never [facility] Start: 12-13-2014 Sex Female (finding) [facility] Clinical Notes 01-20-2021 to 11-13-2024 Note Date [...] with left-sided sciatica November 13, 2024 10:55am [facility] Work Phone: 1(336) 713-859606-24-2025 Evaluation note* Diagnosis Onset Date Resolution Status Admit Date Arthralgia acute November 13 10:55am Hypothyroidism acute November 13, 2024 10:55am Left knee pain acute November 13, 2024 10:55am Left-sided low back pain wit h left-sided sciatica acute November 13, [address] 025 10:[address]am [facility] Work Phone: 1(277) 826-553712-19-2024 Evaluation note* Diagnosis Onset Date Resolution Status Admit Date Acute pain of right knee acute May 10, 2024 8:32am Insomnia acute May 10, 2024 8:32am Primary osteoarthritis of ri ght knee acute June 06 1:50pm [facility] Work Phone: 1(663) 115-247107-03-[facility] Chief Complaint: Patient here for 3 mo follow up palpitations, SVT, and diastolic dysfunction. She did not have echo done that was ordered at last apt in August 2022. Says she is not having as many palpitations as before. Her road cutter told her she would have some symptoms [...] a past medical history of Diabetes mellitus ([facility]), Fibromyalgia, Hyperlipidemia, Hypothyroidism, Peripheral venous insufficiency, [...] the absence of structu (more content not included)...[facility]04-17-2023 NotePatient here c/o annoying palpitations per Dr. [...] breath. All other systems reviewed and are negative.[facility] 09-06-2022 NoteCardiovascular Medicine [facility] SUBJECTIVE Chief Complaint Patient presents with [...] Comments Biphasic Doppler w (more content not included)...[facility]04-13-2023 Evaluation note* Encounter Date Diagnosis Assessment Notes [...] her specialist. Requests referral to Dr. Blake. [facility] Other 02-01-2023 Evaluation note* Encounter Date Diagnosis [...] K63.89) Patient will schedule follow-up with gastroenterology [facility] Other 08-31-2021 NoteHNO ID: [id number] Author: Wallace Laureano MD Service: ? Author Type: Physician Type: Progress Notes Filed: 01/22/2021 12:43 PM Note Text: PATIENT NAME: Nia Calhoun DATE: 01/20/2021 PRIMARY CARE PHYSICIAN: Venus Chen MD OTHER PHYSICIANS: Dr. Henry ([facility] in [place]) HPI: This is a 60 year old female self-referred for evaluation of abnormal labs (homozygous MTHFR mutation) detected on previous genetic analysis. Apparently the patient underwent genetic testing with [employer] in 2012, and was found to have multiple heterozygous mutations of no clinical significance. However, she subsequently underwent additional testing with [employer] [facility] and was found to have a homozygous MTHFR [id number] mutation. The patient has never had evidence [...] rash, itching, pallor, or (more content not included)...[facility] note No data available for this section [facility] noteNo InformationNortWell[facility] [facility] Other Evaluation note* Diagnosis Onset Date Resolution Status Hypothyroidism acute Right sided abdominal pain a cute Type 2 diabetes mellitus with hyperglycemia acute [facility] Work Phone: History general Narrative - Reported* Type Description Date Medical History Paronychia of toe Medical History Intermittent palpitations Medical History Hypothyroidism Medical History Diastolic blood pressure 90 mm H g or higher Medical History Essential hypertension Medical History Hyperglycemia due to type 2 diab etes mellitus Medical History Fibromyalgia Medical History Small intestinal bacterial overg [facility] Medical History Screening for condition Medical History [...] CHOLECYSTECTOMY 01/2016 Hospitalization History SEE SURGICAL HX [facility] Other Hospital Discharge instructions No data available for this section [facility] instructionsAmb[facility] Orders* Referral to Rheumatology Time Frame: 11/14/24, Location: None Selected [facility] Work Phone: Progress note No data available for this section [facility] Summary Purpose Family History Relationship Condition Age [...] nightly. Diagnosis 1 Palpitations (R00.2) Referral Organization [facility] Referring Provider First Name Venus Referring Provider Last Name Frances Referring Provider Specialty Family [facility] Referred Organization [facility] Referred Provider Fabiola Blake Referred Address [address], [place],[address] Referred Provider Specialty Cardiology Referral Priority Routine General Notes Geena Henry 03:42:59 PM >received today, notes locked, insurance card attached, referral faxed Clinical Notes F: [id number] Chief Complaint and Reason for Visit Chief [...] section and content) DATE CREATED AUTHOR 06/17/2021 [facility] DATE CREATED AUTHOR AUTHOR'S ORGANIZ ATION 10/29/2022 [facility] DATE CREATED AUTHOR AUTHOR'S ORGANIZ ATION 11/22/2022 [facility] DATE CREATED AUTHOR AUTHOR'S ORGANIZ ATION 10/13/2023 [facility] DATE CREATED AUTHOR AUTHOR'S ORGANIZ ATION 11/09/2023 [facility] DATE CREATED AUTHOR AUTHOR'S ORGANIZ ATION 06/09/2024 [facility] DATE CREATED AUTHOR AUTHOR'S ORGANIZ ATION 09/20/2024 [facility] Patient Care team informatio n (unrecognized [...] BE BASED ON THE PRIMARY CLINICAL RECORDS. [facility] [employer] [facility]. provides no warranty or guarantee of the accuracy or completeness of information in this document.
--- OUTSIDE RECORDS SUMMARY | 2024-11-17 09:51 | XMS_ITS | Referral Summary ---
Author Organization [facility] Address [address] [place] [address] Care Team Providers Care Cotton Inspector Name Role Phone Venus Daniels MD Primary Care Provider [phone] Allergies Active Allergy Reactions Criticality Noted Date Comments Adhesive Tape-Silicones 08/22/2017 SENSITIVE Propoxyphene N-Acetaminophen 023 Latex, Natural Rubber Other 08/22/2017 SENSITIVE Morphine 09/06/2022 Penicillins Other 04/18/2007 convulsions and blindness Sulfamethoxazole-Trimethopri m Unknown 01/19/2021 Medications zolpidem (Ambien) 5 mg tablet zolpidem 5 mg tablet Active liothyronine (Cytomel) 5 mcg tablet liothyronine 5 mcg tablet 4 Active Tirosint 125 mcg capsule TAKE 1 CAPSULE BY MOUTH EVERY DAY ON EMPTY STOMACH IN THE MORNING 3 Active venlafaxine XR (Effexor-XR) 150 mg 24 hr capsule venlafaxine ER 150 mg capsule,extended release 24 hr 8 Active insulin glargine (Lantus) 100 unit/mL (3 mL) pen Basaglar KwikPen U-100 Insulin 100 unit/mL (3 mL) subcutaneous 1 Active cholecalciferol (Vitamin D-3) 25 MCG (1000 UT) capsule Take 4,000 Units by mouth in the morning. 4 Active semaglutide (OZEMPIC SUBQ) Refill(s) 0 3 Active Active Problems Problem Noted Date Diagnosed Date Fibromyalgia 01/12/2021 Type 2 diabetes mellitus 01/12/2021 Depression 11/27/2013 Edema 11/27/2013 Vitamin D deficiency 11/27/2013 Weight gain 11/27/2013 Hypothyroidism, postsurgical 09/22/2010 Malignant neoplasm of thyroid gland 09/22/2010 Hypothyroid 07/22/2009 Social History Tobacco Use Types Packs/Day Years Used Date Smoking Tobacco: Never Smokeless Tobacco: Never Tobacco Cessation:Counseling Given: Not Answered Alcohol Use Standard Drinks/Week Comments Not Currently 0 (1 standard drink = 0.6 oz pur e alcohol) [place] Safety & Environment Answer Date Rec orded Fear of Current or Ex-Partner Not on file Emotionally Abused Not on file 07/14/2023 Physically Abused Not on file 07/14/2023 Sexually Abused Not on file 07/14/2023 Physically or Sexually Abused Not on file Comments Unknown Sex and Gender Information Value Date Recorded Sex Assigned at Not on file Legal Sex Female 9:42 PM EDT Gender Identity Not on file Sexual Orientation Not on file Last Filed Vital Signs Vital Sign Reading Time Taken Comments Blood Pressure 124/81 11/22/2022 10:12 AM EDT Pulse 86 11/22/2022 10:12 AM EDT Temperature - - Respiratory Rate - - Oxygen Saturation 96% 11/22/2022 10:12 AM EDT Inhaled Oxygen Concentration - - Weight 114 kg (251 lb) 11/22/2022 10:12 AM EDT Height 165.1 cm (5' 5 ) 11/22/2022 10:12 AM EDT Body Mass Index 41.77 11/22/2022 10:12 AM EDT Plan of Treatment Not on file Insurance [facility] Care Teams Cotton Inspector Relationship Specialty Start Date End Date Venus Daniels MD [facility] #A PCP - General 09/06/22
--- OUTSIDE RECORDS SUMMARY | 2024-11-17 09:51 | XMS_ITS | Clinical Summary ---
Author Organization [facility] Address [id number] [address] [place] [address] Care Team Providers Care Outside Event Sales Specialist Name Role Phone Venus Daniels MD Primary Care Provider [phone] Allergies Active Allergy Reactions Criticality Noted Date Comments Adhesive Tape-Silicones 08/22/2017 SENSITIVE Aspirin Other (See Comments) 01/19/2021 Received as child, unknown as reaction Ciprofloxacin Other (See Comments) 08/22/2017 Causes joint damage Codeine GI Disturbance 01/19/2021 Latex, Natural Rubber Rash Low 08/22/2017 SENSITIVE Morphine Itching 09/06/2022 Patient states it does not work for her due to not having receptors 10/11/23, causes itching and anger Nitrofurantoin Monohyd/M-Cryst 01/19/2021 Other Reaction(s): Unknown Penicillins 08/22/2017 Convulsions Sulfa (Sulfonamide Antibiotics) Hives 01/19/2021 Other Reaction(s): Unknown Medications TIROSINT 137 mcg capsule Take 1 capsule (137 mcg total) by mouth in the morning. 08/20/2017 Active CYTOMEL 5 mcg tablet Take 1 tablet (5 mcg total) by mouth in the morning. 06/26/2017 Active zolpidem (AMBIEN) 5 mg tablet Take 1 tablet (5 mg total) by mouth nightly as needed for sleep. for sleep 1 08/15/2017 Active venlafaxine XR (EFFEXOR-XR) 150 mg 24 hr capsule 08/05/2017 Active cholecalciferol , vitamin D3, 1,000 unit capsule Take 4 capsules (4,000 Units total) by mouth in the morning. 11/27/2013 Active LANTUS SOLOSTAR U-100 INSULIN 100 unit/mL (3 mL) insulin pen Inject 12 Units under the skin nightly. 09/13/2023 Active tirzepatide (MOUNJARO) 2.5 mg/0.5 mL pen injector Inject 2.5 mg under the skin every 7 days. Takes Tuesday Active Active Problems No known active problems Family History Medical History Relation Name Comments Brain cancer Father Diabetes Father Heart disease Father Hyperlipidemia Father Hypertension Father No Known Problems Mother Breast cancer Sister Kidney disease Sister Relation Name Status Comments Father Mother Sister Alive Social History Tobacco Use Types Packs/Day Years Used Date Smoking Tobacco: Never Smokeless Tobacco: Never Alcohol Use Standard Drinks/Week Comments No 0 (1 standard drink = 0.6 oz pur e alcohol) Childcare Answer Date Recorded Childcare Unknown 11/01/2018 Employment Answer Date Recorded Employment Unknown 11/01/2018 Hunger Screening Answer Date Recorded Within the past 12 months we worried whether our food would run out before we got money to buy more. Never True 10/11/2023 Food Insecurity - Inability Not on file 09/21 Purpose - Life Answer Date Recorded Purpose and direction in life Unknown Comments No Sex and Gender Information Value Date Recorded Sex Assigned at Not on file Legal Sex Female 11:46 AM EDT Gender Identity Not on file Sexual Orientation Not on file Last Filed Vital Signs Vital Sign Reading Time Taken Comments Blood Pressure 121/86 11/07/2023 8:55 AM EDT Pulse 74 11/07/2023 8:55 AM EDT Temperature 37 C (98.6 F) 11/07/2023 6:47 AM EDT Respiratory Rate 11 11/07/2023 8:55 AM EDT Oxygen Saturation 95% 11/07/2023 8:55 AM EDT Inhaled Oxygen Concentration - - Weight 117 kg (258 lb) 11/07/2023 6:47 AM EDT Height 162.6 cm (5' 4 ) 11/07/2023 6:47 AM EDT Body Mass Index 44.29 11/07/2023 6:47 AM EDT Plan of Treatment Health Maintenance Due Date Last Done Comments Depression Screening 1974 Adult BMI Follow Up Plan 02/05/1980 Zoster (Shingles) Vaccine (1 of 2) 02/05/2012 COVID-19 Vaccine (6 2023-2 5 season) 2024 04/26/2021, 09/03/2020, 08/19/2020, Additional history exists Adult BMI Screening 11/06/2024 11/07/2023 Tobacco Screening 11/06/2024 11/07/2023 Influenza Vaccine 01/21/2025 02/09/2023, , 02/24/2021, Additional history exists DTaP,Tdap and Td Vaccines (5 - Td or Tdap) 03/17/2027 03/17/2017, 01/22/2015, 03/13/2014, Additional history exists Colonoscopy 11/06/2028 11/07/2023, 10/21, 11/25/2008 Medical Devices Not on file Procedures Procedure Name Priority Date/Time Associated Diagnosis Comments PROVATION COLONOSCOPY Routine 11/07/2023 6:47 AM EDT from Last 3 Months or Most Recently Relevant to Health Maintenance Results * Colonoscopy Report (11/07/2023 6:47 AM EDT) Narrative SYSTEMGENERATED, DOCUMENTATION - 11/07/2023 6:47 AM EDT This order has been auto-finalized for image and report archival in PACs. *For full report details, please reach out to your physician. This image is visible to you in MyChart.* Tomás Fields DO IMG OR IMG ORDERABLES Final Result from Last 3 Months or Most Recently Relevant to Health Maintenance Insurance [facility] Care Teams Outside Event Sales Specialist Relationship Specialty Start Date End Date Venus Daniels MD [address] [place] [address] PCP - General 08/08/17
--- OUTSIDE RECORDS SUMMARY | 2024-11-17 09:51 | XMS_ITS ---
Author Organization Unknown Patient Care team information Name Category Status Period Participants - - Proposed period not known -
--- OUTSIDE RECORDS SUMMARY | 2024-11-17 09:51 | XMS_ITS | Clinical Summary ---
Author Organization [facility] Address [address] [place] [address] Care Team Providers Care Distribution Agent Name Role Phone Venus Daniels MD Primary Care Provider [phone] Allergies Active Allergy Reactions Criticality Noted Date [...] neoplasm of thyroid gland 09/22/2010 Hypothyroid 07/22/2009 Family History Medical History Relation Name Comments Arrhythmia Brother Arrhythmia Father Coronary artery disease Father Heart attack Father Coronary artery disease Sister Relation Name Status Comments Brother Father Sister Social History Tobacco Use Types Packs/Day Years Used Date Smoking Tobacco: Never Smokeless Tobacco: Never Tobacco Cessation:Counseling Given: Not Answered Alcohol Use Standard Drinks/Week Comments Not Currently 0 (1 standard drink = 0.6 oz pur e alcohol) [place] Safety & Environment Answer Date Rec orded [...] 11/22/2022 10:12 AM EDT Plan of Treatment Health Maintenance Due Date Last Done Comments CT Colonography 1962 Colonoscopy 1962 Colorectal Cancer Screening 1962 Diabetes: Hemoglobin A1C 1962 FIT-DNA 1962 FIT 1962 FOBT 1962 Sigmoidoscopy 1962 Diabetes: Retinopathy Screening 02/05/1972 Depression Screening 1974 Diabetes: Urine Protein Screening 1981 Pneumococcal Vaccine: Pediatrics (0 to 5 Years) and At-Risk Patients (6 to 64 Years) (1 of 2 - PCV) 1981 Pap Smear 1983 Cervical Cancer Screening 02/05/1992 HPV/Cotest 02/05/1992 Mammogram 2002 Zoster Vaccines (1 of 2) 02/05/2012 Adult Tetanus 11/20/2022 11/20/2012 COVID-19 Vaccine ( season) 2024 04/26/2021, 09/03/2020, 08/19/2020, Additional history exists Influenza Vaccine (Season Ended) 2025 01/27/2022, 03/01/2018, 03/17/2017 HIB Vaccines Aged Out No longer eligi ble based on patient's age to complete this topic HPV Vaccines Aged Out No longer eligi ble based on patient's age to complete this topic IPV Vaccines Aged Out No longer eligi ble based on patient's age to complete this topic Meningococcal B Vaccine Aged Out No l onger eligible based on patient's age to complete this topic Meningococcal Vaccine Aged Out No eliazar lj eligible based on patient's age to complete this topic Rotavirus Vaccines Aged Out No longer eligible based on patient's age to complete this topic Insurance [facility] [place] [address] Care Teams Distribution Agent Relationship Specialty Start Date End Date Venus Daniels MD [address] [facility] [address] PCP - General 09/06/22
--- OUTSIDE RECORDS SUMMARY | 2024-11-17 09:51 | XMS_ITS | Patient Health Record ---
Author Organization Corporate Office Address [address] [place] [address] [address] [place] [address] Care Team Providers Care Analytics Analyst Name Role Phone Venus Daniels Primary Care Provider Yoko Corona NP, Marta Unavailable [phone] Manda PANIAGUA Delisa Unavailable Allergies Allergen (clinical drug ingredient) Drug/Non Drug Allergy documented on EMR Reaction Allergy Type Onset Date Status Nicholls Thyroid Unknown Drug Allergy Ac tive Aspirin Unknown Drug Allergy Active Ibuprofen Unknown Drug Allergy Active Keflex Unknown Drug Allergy Active Levaquin Unknown Drug Allergy Active Nature-Throid Unknown Drug Allergy Act adelia Thyrolar-1 Unknown Drug Allergy Active codeine Codeine Unknown Drug Allergy Active tape Unknown Allergy Active penicillin Unknown Drug Allergy Active Reason For Referral No Information Medications Medication SIG (Take, Route, Frequency, Duration) Notes Start Date End Date Status Lantus SoloStar 100 UNIT/ML 12-14 Subcutaneous daily evening for 90 days Active Ozempic (0.25 or 0.5 MG/DOSE) 2 MG/1.5ML 0.5 mg Subcutaneous once a week for 30 days 09/06/2022 Not-Taking Melatonin 3 MG 1 tablet at bedtime as needed Orally Once a day Active Ozempic (1 MG/DOSE) 4 MG/3ML as directed Subcutaneous weekly for 90 days 06/08/2023 Not-Taking Mounjaro 7.5 MG/0.5ML as directed Subcutaneous weekly for 90 days 03/14/2024 Active Mounjaro 2.5 MG/0.5ML INJECT 1 PEN SUBCUTANEOUSLY ONCE A WEEK for 28 Not-Taking Cytomel 5 MCG TAKE 1 TABLET BY MOUTH DAILY ON AN EMPTY STOMACH Orally Once a day for 90 days Active Basaglar KwikPen 100 UNIT/ML 14 units Subcutaneous once at bedtime for 90 days Not-Taking Effexor XR 150 MG 1 capsule with food Orally Once a day Active metFORMIN HCl ER 500 MG 1 tablet with evening meal Orally twice a day for 90 days Not-Taking Vitamin D 50 MCG (1999 [place]) 3 tablets Orally Once a day Active B12 Folate 800-800 MCG as directed Orally Active Ambien 5 MG 1 tablet at bedtime as needed Orally Once a day Not-Taking Pen [place] /16 31G X 8 MM as directed once a day for 90 days 04/11/2020 Active Tirosint 125 MCG 1 capsule in the morning on an empty stomach Orally Once a day for 90 days Active Tirosint 125 MCG 1 capsule in the morning on an empty stomach Orally Once a day for 90 days will start when gets medicine at pharmacy Not-Taking Multivitamin Adults - as directed Orally Active FreeStyle Anthony 3 Sensor - as directed for 90 days 03/14/2024 Active Immunizations Vaccine Route Administration Date Status Comme nts Given Elsewhere SARS-CoV-2, Pfizer 30mcg/0.3ml Unknown 08/11/2020 Administered Given Elsewhere SARS-CoV-2, Pfizer 30mcg/0.3ml Unknown 09/03/2020 Administered Problems Problem Type SNOMED Code ICD Code Onset Dates Problem Status W/U Status Risk Notes Problem Morbid obesity (E66.01) Active confirmed Problem Hyperlipidemia (38871108) Hyperlipidemia (E78.5) Active confirmed Problem Prediabetes (478889215) Prediabetes (R73.09) Active confirmed Problem 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) MTHFR mutation (E72.12) Active confirmed Problem Malignant tumor of thyroid gland (340331445) Malignant neoplasm of thyroid gland (C73) Active confirmed Problem Autoimmune thyroiditis (77464012) Autoimmune thyroiditis (E06.3) Active confirmed Problem Diabetes mellitus type 2 (01376640) Diabetes mellitus type 2, uncontrolled (E11.65) Active confirmed Problem Type 2 diabetes mellitus (75522012) Type 2 diabetes mellitus (E11.9) Active confirmed Problem History of malignant neoplasm of thyroid (133586338) History of thyroid cancer (Z85.850) Active confirmed Vital Signs Height-cm 165.1 cm 09/12/2024 Blood pressure diastolic 80 mm Hg 09/12/2024 Weight-kg 118.16 kg 09/12/2024 Height 65 in 09/12/2024 Blood pressure systolic 116 mm Hg 09/12/2024 Weight 260.5 lbs 09/12/2024 BMI 43.34 kg/m2 09/12/2024 Encounters Encounter Location Date Provider Diagnosis 06 [facility] [address] [place] [address] 03/14/2024 Delisa Holman Type 2 diabetes mellitus E11.9 ; Hyperlipidemia E78.5 ; Morbid obesity E66.01 ; History of thyroid cancer Z85.850 and Autoimmune thyroiditis E06.3 06 [facility] [address] [place] [address] 06/15/2024 Delisa Manda Type 2 diabetes mellitus E11.9 06 [facility] [address] [place] [address] 09/12/2024 Delisa Manda Type 2 diabetes mellitus E11.9 ; Hyperlipidemia E78.5 ; Morbid obesity E66.01 ; History of thyroid cancer Z85.850 and Autoimmune thyroiditis E06.3 Assessments Encounter Date Diagnosis (ICD Code) Assessment Notes Treatment Notes Treatment Clinical Notes Section Notes 03/14/2024 Type 2 diabetes mellitus (ICD-10 - E11.9) Will increase Mounjaro Try to increase exercise If get Lantus dose <10 units could try stopping Discussed nutrition and exercise 06/15/2024 Type 2 diabetes mellitus (ICD-10 - E11.9) 09/12/2024 Type 2 diabetes mellitus (ICD-10 - E11.9) Will try to increase Mounjaro If get Lantus dose <10 units could try stopping Discussed nutrition and exercise 09/12/2024 Hyperlipidemia (ICD-10 - E78.5) 03/14/2024 Hyperlipidemia (ICD-10 - E78.5) 09/12/2024 Morbid obesity (ICD-10 - E66.01) 03/14/2024 Morbid obesity (ICD-10 - E66.01) 03/14/2024 History of thyroid cancer (ICD-10 - Z85.850) TG undetectable Will increase to Cytomel 5mcg whole pill (was taking quarter twice a day). If palpitations then stop and call (or can try taking every other day) 09/12/2024 History of thyroid cancer (ICD-10 - Z85.850) TG undetectable 03/14/2024 Autoimmune thyroiditis (ICD-10 - E06.3) 09/12/2024 Autoimmune thyroiditis (ICD-10 - E06.3) 03/14/2024 Other Long discussion with pt regarding fatigue and sleep. Encourage sleep study. Plan Of Treatment Pending Test Test Name Order Date Hemoglobin A1c 03/10/2022 Hemoglobin A1c 09/15/2022 Hemoglobin A1c 12/18/2014 Polysomnogram, diagnostic overnight, att ended (Sleep Study) 12/18/2013 Polysomnogram, diagnostic overnight, att ended (Sleep Study) 08/13/2014 Thyroglobulin Quant 03/10/2022 Lipid Panel 09/14/2023 TSH (Thyroid Stimulating Hormone) 2023 TSH (Thyroid Stimulating Hormone) 2021 CMP 03/10/2022 CMP 09/15/2022 CMP 09/14/2023 Hemoglobin A1C 09/14/2023 Future Test Test Name Order Date Lipid Panel 09/12/2024 Thyroglobulin (TG-NANCY) 09/12/2024 TSH (Thyroid Stimulating Hormone) 2024 CMP 09/12/2024 Hemoglobin A1C 09/12/2024 Next Appt Details Provider Name:Delisa bauer, 03/19/2025 03:00:00 PM, [address], [place], [address], Insurance Providers Payer Name Payer Address Payer Phone Subscriber Number Group Number Insured Name Patient Relationship to Insured Coverage Start Date Coverage End Date [facility] CHO[facility] PL[facility] [address] [place] [phone] [id number] Willa Calhoun Self - patient is the insured Medical (General) History Medical History History ICD Code DM 2 CFS/FM partial thyroidectomy for Destiny''''s severe endometriosis thyroid cancer esophageal ulcer Prediabetes R73.09 Prediabetes Surgical History Surgery Date(Month/Year) colonoscopy with polyp resection 11/17/19 18 cholecystectomy 06/2013 [facility]SO-laparoscopic 2006 [facility] 2005 completion of thyroidectomy 2010 partial thyroidectomy 2004 Hospitalization History Reason Date(Month/Year) thyroidectomy 2010 [facility] 2005
--- OUTSIDE RECORDS SUMMARY | 2024-11-17 09:51 | XMS_ITS | Clinical Summary ---
Author Organization [facility] Address [address] [place] [address] Phone Care Team Providers Care Hotel Front Office Manager Name Role Phone Unavailable Primary Care Provider Unavailabl e Social History Tobacco Use Types Packs/Day Years Used Date Smoking Tobacco: Never Assessed Comments Unknown Sex and Gender Information Value Date Recorded Sex Assigned at Not on file Legal Sex Female 4:30 PM EST Gender Identity Not on file Sexual Orientation Not on file Plan of Treatment Not on file
[2024-11-17 11:03] LABS: Estimated Average Glucose 157 mg/dL; Glycohemoglobin A1C 7.1 % (4.5-6.2)
[2024-11-17 11:06] LABS: Alanine Aminotransferase 36 U/L (14-59); Albumin Globulin Ratio 0.8; Alkaline Phosphatase 87 U/L (46-116); Anion Gap 12.7; Aspartate Amino Transferase 19 U/L (15-37); BUN Creatinine Ratio 15.6; Bilirubin Total 0.3 mg/dL (0.2-1.0); Calcium 8.9 mg/dL (8.5-10.1); Carbon Dioxide 29.9 mmol/L (21.0-32.0); Chloride 105 mmol/L (98-107); Estimated GFR (African America >60 (>=60 mL/min/1.73m^2); Estimated GFR (Non-African Ame >60 (>=60 mL/min/1.73m^2); Globulin 3.7 g/dL; Glucose 158 mg/dL (74-106); Potassium 4.6 mmol/L (3.5-5.1); Sodium 143 mmol/L (136-145); Thyroid Stimulating Hormone 0.123 uIU/mL (0.358-3.740); Total Protein 6.7 g/dL (6.4-8.2)
== END 2024-11-17 09:50 | disposition home or self-care (01) ==
LOC: LAB 09:49
DX: E11.9 Type 2 diabetes mellitus without complications (principal); M25.50 Pain in unspecified joint; E89.0 Postprocedural hypothyroidism; I10 Essential (primary) hypertension
CPT/HCPCS: 36415; 80053; 82306; 83036; 83970; 84443; 85025; 85652